=== PATIENT | male | born 1940 | race Caucasian/White ===

== ENCOUNTER 2022-07-05 03:34 | Observation (INO) ==
[2022-07-05 04:49] LABS: Basophils # (auto) 0.08 K/uL (0-0.2); Basophils % (auto) 1.3 %; Eosinophils # (auto) 0.24 K/uL (0-0.50); Eosinophils % (auto) 3.9 %; Hematocrit (blood only) 41.6 % (42.0-52.0); Hemoglobin 14.2 g/dl (14.0-18.0); Immature Granulocytes # (auto) 0.03 K/uL (0.01-0.20); Immature Granulocytes % (auto) 0.5 %; Lymphocytes % (auto) 24.4 %; Mean Corpuscular Hemoglobin 32.6 pg (25.0-34.0); Mean Corpuscular Hgb Conc 34.1 g/dL (32.0-36.0); Mean Corpuscular Volume 95.4 fL (80.0-100.0); Mean Platelet Volume 10.3 fL (9.4-12.4); Monocytes # (auto) 1.05 K/uL (0.11-0.59); Monocytes % (auto) 17.1 %; Neutrophils # (auto) 3.24 K/uL (1.40-6.50); Neutrophils % (auto) 52.8 %; Platelet Count 154 K/uL (130-400); RDW Standard Deviation 45.5 fL (36.4-46.3); Red Blood Count 4.36 M/uL (4.70-6.10); White Blood Count 6.14 K/ul (4.8-10.8)
[2022-07-05 04:53] LABS: Albumin Globulin Ratio 1.6 (0.9-2); Albumin Level 3.8 gm/dl (3.4-5.0); BUN Creatinine Ratio 12.5 (10-20); Bilirubin,Total 0.5 mg/dl (0.2-1.0); Calcium 8.9 mg/dl (8.6-10.3); Creatinine Clr Calc Pharmacy 35.9 ml/min; Est GFR (African American) 38.4 ml/min; Est GFR (Non-African American) 33.2 ml/min; Globulin 2.4 gm/dl (2.5-4.0); Magnesium 2.1 mg/dl (1.7-2.4); Potassium 4.2 mmol/L (3.5-5.1); Total Protein 6.2 gm/dl (6.0-8.3)
[2022-07-05 04:58] LABS: Troponin I High Sensitivity 9.1 pg/ml (0-20)
--- NOTE | 2022-07-05 05:14 | Emergency Department Note ---
Impression & Plan Altered mental status, Fall, Hypotension, Hypoxia ED Provider Note ED Provider Note NAME: ABHAY BROWN AGE:81 SEX: Male : 1940 ARRIVES VIA: EMS INFORMANT: Patient, daughter ED PROVIDER(s): Ani Barrientos DO CHIEF COMPLAINT: Fall HPI: This is an 81-year-old male who presents to the emergency room via EMS after a fall as well as increased agitation and aggressive behavior with his at home following the fall. called 911. According to daughter who is now at bedside patient apparently fell getting out of bed, went downstairs, and then fell again. 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 Patient does have a history of memory problems/dementia. Daughter denies any use of anticoagulation. Daughter has recently assumed care of both of her parents. They do live in a house independently and she lives approximately 15 minutes away. She states she does not know if he lost consciousness in the fall or may have struck his head. Patient denies any current pain. He denies any cough or difficulty breathing. Patient noted to be hypotensive and hypoxic at 87% on I entered the room. He was placed on 2 L via nasal cannula and IV fluids were started. PAST MEDICAL HISTORY:See Below PAST SURGICAL HISTORY:See Below FAMILY HISTORY:See Below SOCIAL HISTORY:See Below HOME MEDICATIONS:See Below ALLERGIES:See Below VITALS:See Below PHYSICAL EXAMINATION: GENERAL: alert, well appearing, well nourished, no distress, non-toxic HEAD: nc/at, small abrasion noted to left methodist, no surrounding ecchymosis, nontender with palpation, no davila signs, no raccoon eyes, no other evidence of facial trauma EYE EXAM: normal conjunctiva, PERRL and EOM's grossly intact OROPHARYNX: no exudate, no erythema, lips, buccal mucosa, and tongue normal and mucous membranes are moist NECK: supple, no nuchal rigidity, no adenopathy, non-tender, FROM LUNGS: Clear to auscultation. Normal chest wall mechanics, no w/r/r HEART: no murmurs, S1 normal and S2 normal CHEST WALL: Nontender with palpation, no crepitus, no step-off ABDOMEN: abdomen soft, non-tender, normo-active bowel sounds, no masses, no rebound or guarding. PELVIS: Stable to compression, nontender with palpation BACK: Back is symmetrical on inspection and there is no deformity, no midline tenderness, no CVA tenderness. SKIN: no rashes, petechiae, orbruising UPPER EXTREMITIES: upper extremities are grossly normal. FROM, nml pulses b/l. No evidence of trauma or deformity. LOWER EXTREMITIES: No pitting edema. FROM, nml pulses b/l. No evidence of trauma or deformity. NEURO EXAM: Normal sensorium, cranial nerves II-XII grossly intact, normal speech, no facial droop,nogross weakness of arms, no gross weakness of legs. Gross sensation intact. No ataxia. Vital Signs: reviewed and remarkable Differential Diagnosis: Syncope, closed head injury, concussion, intracerebral hemorrhage, skull fracture, rib fracture, intra-abdominal hemorrhage, pulmonary contusion, cardiac contusion, musculoskeletal strain/sprain, as well as others were considered MEDICAL DECISION MAKING: This is an 81-year-old male with a history of dementia who presents via EMS following 2 falls this evening at home as well as loose Nations and aggressive behavior with his with whom he lives. Daughter presents to bedside and is able to provide additional history. Labs drawn and sent, IV established, EKG and chest x-ray performed at bedside and interpreted by me, patient placed on telemetry. Patient sent for additional CT imaging due to falls. Patient's imaging reassuring. Patient noted to have elevated creatinine but does have a history of CKD. Due to concern for mildly abnormal chest x-ray and hypoxia, BNP was added and was mildly elevated also. Patient had no obvious respiratory distress here, and hypoxia improved with 2 L via nasal cannula. Patient's blood pressure was low initially and he was started on IV fluids. This improved as well. Family concerned due to increased agitation and aggressive behavior with this morning and did not feel comfortable with him coming home. Given other findings including hypoxia and hypotension, I feel patient should be monitored here. Case discussed with hospitalist for additional evaluation and management. Consultation(s): 2551: Discussed with Dr. Clayton. ER Treatment Provided: See below 0552: Discussed with daughter again at bedside. She states he did just recently see nephrology due to abnormal kidney numbers noted as an outpatient. She does not know what those levels are. She states other than the pacemaker she does not know of any heart history in him, and no prior episodes of congestive heart failure. Diagnostics Interpreted By Me: -ECG: Paced at 80, leftward axis, prolonged intervals consistent with paced rhythm, no acute ST/T wave changes -Cardiac Monitoring: An order was placed for continuous cardiac monitoring. The monitor shows a rate of 82 with paced rhythm. -Laboratory studies: As stated above and show below. -Imaging studies: X-ray: I interpreted the following studies. 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 Vitamin D deficiency Social History Smoking Status: Never smoker Hx Substance Use: No Preferred Language: Ethiopian Communication Ability: Effective Home Management Supervisor Required: No Beliefs That Will Affect Care: None Current Living Situation: Spouse Other Information That Helps Us Care for You: No Feels Safe at Home: Yes Safety Concerns: Feels Safe At This Time Assistive Devices: Glasses, Hearing Aid - Bilateral and Walker Home Meds Home Medications Medication Instructions Recorded Confirmed Multi-Vitamin 1 tab PO DAILY 07/05/22 07/05/22 Prozac 40 mg PO DAILY 07/05/22 07/05/22 Seroquel 100 mg PO HS 07/05/22 07/05/22 acetaminophen 1 tab PO Q12H PRN Pain 07/05/22 07/05/22 cholecalciferol (vitamin D3) 1 tab PO DAILY 07/05/22 07/05/22 gabapentin 100 mg PO HS 07/05/22 07/05/22 metoprolol succinate 25 mg PO DAILY 07/05/22 07/05/22 Results & Data (ED) Vital Signs Vital Signs - 24 hr 07/05/22 07:00 07/05/22 07:30 07/05/22 08:19 Pulse Rate 72 70 74 Pulse Rate from SpO2 Sensor 74 75 Respiratory Rate 19 17 Blood Pressure 121/63 112/72 Blood Pressure Mean 82 85 Pulse Oximetry 97 93 Oxygen Delivery Method Nasal Cannula Room Air Oxygen Flow Rate 2 07/05/22 08:00 07/05/22 08:30 07/05/22 08:31 Pulse Rate 73 73 67 Pulse Rate from SpO2 Sensor 76 77 70 Respiratory Rate 20 18 19 Blood Pressure 113/78 135/72 135/72 Blood Pressure Mean 89 93 93 Pulse Oximetry 93 92 92 Oxygen Delivery Method Nasal Cannula Nasal Cannula Nasal Cannula Oxygen Flow Rate 2 2 2 07/05/22 09:00 07/05/22 09:30 Pulse Rate 72 62 Pulse Rate from SpO2 Sensor 76 61 Respiratory Rate 19 16 Blood Pressure 150/81 H 146/97 H Blood Pressure Mean 104 113 Pulse Oximetry 90 95 Oxygen Delivery Method Nasal Cannula Nasal Cannula Oxygen Flow Rate 2 2 Laboratory Data 07/05/22 03:45 07/05/22 03:45 Lab Results 07/05/22 07/05/22 07/05/22 Range/Units 03:45 03:45 03:45 WBC 6.14 (4.8-10.8) K/ul RBC 4.36 L (4.70-6.10) M/uL Hgb 14.2 (14.0-18.0) g/dl Hct 41.6 L (42.0-52.0) % MCV 95.4 (80.0-100.0) fL MCH 32.6 (25.0-34.0) pg MCHC 34.1 (32.0-36.0) g/dL RDW Std Deviation 45.5 (36.4-46.3) fL RDW Coeff of Evans 13.0 (11.5-14.5) % Plt Count 154 (130-400) K/uL MPV 10.3 (9.4-12.4) fL Immature Gran % (Auto) 0.5 % Neut % (Auto) 52.8 % Lymph % (Auto) 24.4 % [place] % (Auto) 17.1 % Eos % (Auto) 3.9 % Baso % (Auto) 1.3 % Neut # (Auto) 3.24 (1.40-6.50) K/uL Lymph # (Auto) 1.50 (1.2-3.4) K/uL [place] # (Auto) 1.05 H (0.11-0.59) K/uL Eos # (Auto) 0.24 (0-0.50) K/uL Baso # (Auto) 0.08 (0-0.2) K/uL Immature Gran # (Auto) 0.03 (0.01-0.20) K/uL Sodium 142 (136-145) mmol/L Potassium 4.2 (3.5-5.1) mmol/L Chloride 107 (98-107) mmol/L Carbon Dioxide 27 (21-32) mmol/L Anion Gap 8 (3-11) BUN 23 (6-23) mg/dl Creatinine 1.84 H (0.6-1.4) mg/dl Est Cr Clr Drug Dosing 35.9 ml/min Est GFR ( Amer) 38.4 ml/min Est GFR (Non-Af Amer) 33.2 ml/min BUN/Creatinine Ratio 12.5 (10-20) Glucose 110 H (70-99(Fasting)) mg/dl Calcium 8.9 (8.6-10.3) mg/dl Magnesium 2.1 (1.7-2.4) mg/dl Total Bilirubin 0.5 (0.2-1.0) mg/dl AST 23 (13-39) U/L ALT 18 (7-52) U/L Alkaline Phosphatase 97 (34-104) U/L Troponin I High Sens 9.1 (0-20) pg/ml B-Natriuretic Peptide (0-100) pg/ml Total Protein 6.2 (6.0-8.3) gm/dl Albumin 3.8 (3.4-5.0) gm/dl Globulin 2.4 L (2.5-4.0) gm/dl Albumin/Globulin Ratio 1.6 (0.9-2) Lipase 20 (11-82) U/L TSH 14.688 H (0.300-4.500) uIu/ml Free T4 0.75 (0.61-1.60) ng/dl SARS-CoV-2 (PCR) (Negative) Influenza Type A (PCR) (Neg) Influenza Type B (PCR) (Neg) RSV (RT-PCR) (Neg) 07/05/22 07/05/22 Range/Units 05:46 06:40 WBC (4.8-10.8) K/ul RBC (4.70-6.10) M/uL Hgb (14.0-18.0) g/dl Hct (42.0-52.0) % MCV (80.0-100.0) fL MCH (25.0-34.0) pg MCHC (32.0-36.0) g/dL RDW Std Deviation (36.4-46.3) fL RDW Coeff of Evans (11.5-14.5) % Plt Count (130-400) K/uL MPV (9.4-12.4) fL Immature Gran % (Auto) % Neut % (Auto) % Lymph % (Auto) % [place] % (Auto) % Eos % (Auto) % Baso % (Auto) % Neut # (Auto) (1.40-6.50) K/uL Lymph # (Auto) (1.2-3.4) K/uL [place] # (Auto) (0.11-0.59) K/uL Eos # (Auto) (0-0.50) K/uL Baso # (Auto) (0-0.2) K/uL Immature Gran # (Auto) (0.01-0.20) K/uL Sodium (136-145) mmol/L Potassium (3.5-5.1) mmol/L Chloride (98-107) mmol/L Carbon Dioxide (21-32) mmol/L Anion Gap (3-11) BUN (6-23) mg/dl Creatinine (0.6-1.4) mg/dl Est Cr Clr Drug Dosing ml/min Est GFR ( Amer) ml/min Est GFR (Non-Af Amer) ml/min BUN/Creatinine Ratio (10-20) Glucose (70-99(Fasting)) mg/dl Calcium (8.6-10.3) mg/dl Magnesium (1.7-2.4) mg/dl Total Bilirubin (0.2-1.0) mg/dl AST (13-39) U/L ALT (7-52) U/L Alkaline Phosphatase (34-104) U/L Troponin I High Sens (0-20) pg/ml B-Natriuretic Peptide 123 H (0-100) pg/ml Total Protein (6.0-8.3) gm/dl Albumin (3.4-5.0) gm/dl Globulin (2.5-4.0) gm/dl Albumin/Globulin Ratio (0.9-2) Lipase (11-82) U/L TSH (0.300-4.500) uIu/ml Free T4 (0.61-1.60) ng/dl SARS-CoV-2 (PCR) NEGATIVE (Negative) Influenza Type A (PCR) Negative (Neg) Influenza Type B (PCR) Negative (Neg) RSV (RT-PCR) Negative (Neg) Administered Medications Fluoxetine HCl (Fluoxetine Hcl 20 Mg Cap) 40 mg PO DAILY ROBIN Stop: 08/04/22 12:51 Last Admin: 07/05/22 13:17 Dose: 40 mg Documented By: DIMITRI Gabapentin (Gabapentin 100 Mg Cap) 100 mg PO HS ROBIN Stop: 08/04/22 20:59 Last Admin: 07/05/22 20:07 Dose: 100 mg Documented By: ZURI Heparin Sodium (Porcine) (Heparin Sod 5,000 Unit/0.5 Ml Vial) 5,000 units SQ Q12 ROBIN Stop: 08/04/22 20:59 Last Admin: 07/05/22 20:07 Dose: 5,000 units Documented By: ZURI Metoprolol Succinate (Metoprolol Succ 25mg Ext Rel Tab) 25 mg PO DAILY ROBIN Stop: 08/04/22 12:51 Last Admin: 07/05/22 13:17 Dose: 25 mg Documented By: OL Quetiapine Fumarate (Quetiapine Fumarate 100 Mg Tablet) 100 mg PO HS ROBIN Stop: 08/04/22 20:59 Last Admin: 07/05/22 20:07 Dose: 100 mg Documented By: ZURI Discontinued Medications Sodium Chloride (Nss 1000ml) 1,000 mls @ 125 mls/hr IV .Q8H ROBIN Stop: 08/04/22 04:44 Last Infusion: 07/05/22 20:36 Dose: 0 mls/hr Documented By: Admin: 07/05/22 16:35 Dose: 125 mls/hr Documented By: Infusion: 07/05/22 14:29 Dose: 0 mls/hr Documented By: Admin: 07/05/22 06:11 Dose: 125 mls/hr Documented By: CASANDRA Discharge Plan Visit Data Chief Complaint: Altered Mental Status ED Provider: Ani Barrientos Discharge Problem: Altered mental status, Fall, Hypotension, Hypoxia Patient Disposition: Admitted As Inpatient Discharge Instructions Interventions: ED Discharge Assessment Last Done: 07/05/22 12:51
[2022-07-05 05:18] LABS: Thyroid Stimulating Hormone 14.688 uIu/ml (0.300-4.500)
[2022-07-05 06:06] LABS: T4 Free Thyroxine 0.75 ng/dl (0.61-1.60)
[2022-07-05] MEDS: SODIUM CHLORIDE 0.9% 1000ML 1,000 ML IV SCH ×3 (06:11→16:35)
--- NOTE | 2022-07-05 06:39 | CT Scan Report ---
Exam(s): CT HEAD Without Contrast EXAM: CT Head Without Intravenous Contrast CLINICAL HISTORY: Reason for exam: fall. TECHNIQUE: Axial 5 mm computed tomography images of the head/brain without intravenous contrast. No coronal or sagittal reformatted images. Automated exposure control was utilized for the study. A dose lowering technique was utilized adhering to the principles of ALARA. COMPARISON: No relevant prior studies available. FINDINGS: Exam mildly limited due to lack of coronal and sagittal reformatted images. Within this constraint: There is no acute intracranial hemorrhage or major vascular territory infarct. No mass effect or midline shift seen. There is prominence of the ventricles and sulci consistent with generalized parenchymal volume loss. Scattered hypodensities throughout the periventricular and subcortical white matter are noted, likely sequela of chronic microvascular changes. The calvarium is intact. Bilateral lens replacements noted. The visualized paranasal sinuses and mastoid air cells are clear. IMPRESSION: No acute intracranial pathology. Generalized parenchymal volume loss and sequela of chronic microvascular ischemic angiopathy. Electronically signed by: Casey De Los Santos M.D. 07/05/22 06:38 AM
--- NOTE | 2022-07-05 06:41 | CT Scan Report ---
Exam(s): CT C SPINE EXAM: CT Cervical Spine Without Intravenous Contrast CLINICAL HISTORY: Reason for exam: fall. TECHNIQUE: Axial computed tomography images of the cervical spine without intravenous contrast. Automated exposure control was utilized for the study. A dose lowering technique was utilized adhering to the principles of ALARA. COMPARISON: No relevant prior studies available. FINDINGS: No acute fracture or traumatic subluxation. Prominent multilevel cervical spondylosis with loss of intervertebral disc height, degenerative endplate changes and multilevel neuroforaminal stenoses. Spinal canal is patent. The prevertebral and paraspinal soft tissues are grossly unremarkable. Mild interlobular septal thickening at the lung apices. IMPRESSION: No acute fracture or traumatic subluxation. Multilevel cervical spondylosis. Electronically signed by: Casey De Los Santos M.D. 07/05/22 06:40 AM
--- NOTE | 2022-07-05 07:29 | XRay Report ---
XR chest 1V portable CLINICAL HISTORY: trauma COMPARISON STUDY: No previous studies for comparison. FINDINGS: Low lung volumes are noted. There is no pneumothorax. There is a possible left pleural effu rebekah. Cardiomegaly is noted. Left subclavian pacer is in place. There is mild interstitial thickening . Apparent hazy left lower lung opacities may be artifactual. IMPRESSION: 1. Low lung volumes. Technically difficult study to interpret. 2. Cardiomegaly. Interstitial thickening which favors mild pulmonary edema. 3. Possible left pleural effusion. No pneumothorax. ACT 112: Negative or not required by law. Electronically signed by: Jim Glez M.D. 07/05/2022 7:28 AM
--- NOTE | 2022-07-05 07:30 | XRay Report ---
XR pelvis 1-2V routine CLINICAL HISTORY: trauma COMPARISON: None FINDINGS: Sacroiliac joints and symphysis pubis are intact. No acute fracture is identified within t he pelvis or hips. Pelvic calcifications favor phleboliths. IMPRESSION: No acute fracture within the pelvis or hips. ACT 112: Negative or not required by law. Electronically signed by: Jim Glez M.D. 07/05/2022 7:29 AM
[2022-07-05 07:35] LABS: Influenza A virus by PCR Negative (Neg); Influenza B virus by PCR Negative (Neg); RSV by PCR Negative (Neg); SARS CoV2 RNA(COVID-19) Ceph NEGATIVE (Negative)
--- NOTE | 2022-07-05 10:24 | History & Physical Report ---
Date of Service July 05, 2022 Assessment & Plan (1) Altered mental status: (2) Fall: (3) Hypotension: Plan: 79 years old male with past medical history of hypertension, CAD, vitamin D deficiency, CKD stage III, vascular dementia with behavioral disturbance, ambu latory dysfunction, depression, history of malignant melanoma, history of lymphoma was brought to the ER for altered mental status. Confusion Possible related to delirium, but need to r/o infectious etiology CT head showed no acute intracranial finding No focal neuro deficit on exam UA pending will continue monitor S/P Fall Ambulatory dysfunction Imaging showed no evidence of fracture PT/OT eval Fall precaution CKD stage 3 Creatinine at baseline ( creatinine btw 1.5 to 1.8 baseline) last creatinine level 2 weeks ago was 2 Continue avoid nephrotoxic agents Continue monitor Depression Continue Prozac Dementia with behavioral disturbance Continue Seroquel HTN Hx Pacemaker Continue metoprolol succinate Continue monitor BP Vitamin D deficiency Continue vitamin d supplement Hypoxia CXR showed cardiomegaly. Interstitial thickening which favors mild pulmonary edema. Possible left pleural effusion. No pneumothorax. Received IVF in the ER Will d/c IVF Continue monitor closely DVT px on heparin subq Code status Full code History of Present Illness Chief Complaint: Confusion/fall Primary Care Provider: Melissa Bean MD 79 years old male with past medical history of hypertension, CAD, vitamin D deficiency, CKD stage III, vascular dementia with behavioral disturbance, ambulatory dysfunction, depression, history of malignant melanoma, history of lymphoma was brought to the ER for altered mental status. History obtained from patient, over the phone and ER provider. Patient recently moved from [facility] to [place] about 6 months ago. Last night patient wo ke up in the middle of the night confused. When he was trying to get out of the bed he fell. said patient thought he heard the fire truck outside so he was trying to get out of the house. 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 When tried to stop him from getting out of the house, he became very agitated and aggressive throughout . said he fell 3 times last night, one time when he go out of bed and twice downstairs while trying to leave the house. said he hit his head during the fall. called 911 and he was brought to the ER. Patient said last night he did not know what was going on. he said that he was confused. He said there was EMS staff at his house but they took him to the hospital because he was down on the floor. Currently he said he feels fine but tired. He said that he does not feel that he needs to be in the hospital because he is fine now and the test and exam so far are negative. In the ER he was found to be hypotensive. CT head was unremarkable. Denies any pain, palpitation, dizziness and SOB. Home Medications Medication Instructions Recorded Confirmed Type Multi-Vitamin 1 tab PO DAILY 07/05/22 07/05/22 History Prozac 40 mg PO DAILY 07/05/22 07/05/22 History Seroquel 100 mg PO HS 07/05/22 07/05/22 History acetaminophen 1 tab PO Q12H PRN Pain 07/05/22 07/05/22 History cholecalciferol (vitamin D3) 1 tab PO DAILY 07/05/22 07/05/22 History gabapentin 100 mg PO HS 07/05/22 07/05/22 History metoprolol succinate 25 mg PO DAILY 07/05/22 07/05/22 History Past Med/Surg History Social History Smoking Status: Never smoker Feels Safe at Home: Yes Review of Systems Review of Systems: All systems reviewed & are unremarkable except as noted in HPI & below Physical Exam Physical Exam: General- No acute distress Head- +small abrasion noted to left baptist Eyes- PERRL, EOMI, ENT- oropharynx clear Neck- supple, no JVD Lungs- clear to auscultation Heart- regular rhythm; no murmur Abdomen- normal bowel sounds, soft, nontender Extremities- no calf tenderness Neuro- alert, oriented x 3; PERRL, EOMI; no facial palsy; no dysarthria, no focal neuro deficit Skin- warm & dry Results & Data Results & Data Vital Signs (Past 12 Hours) Vital Signs Temp Pulse Resp BP Pulse Ox O2 Del Method O2 Flow Rate 07/05/22 09:30 62 16 146/97 H 95 Nasal Cannula 2 07/05/22 09:00 72 19 150/81 H 90 Nasal Cannula 2 07/05/22 08:31 67 19 135/72 92 Nasal Cannula 2 07/05/22 08:30 73 18 135/72 92 Nasal Cannula 2 07/05/22 08:00 73 20 113/78 93 Nasal Cannula 2 07/05/22 08:19 74 07/05/22 07:30 70 17 112/72 93 Room Air 07/05/22 07:00 72 19 121/63 97 Nasal Cannula 2 07/05/22 06:00 75 18 130/68 96 07/05/22 05:30 76 18 98/75 L 95 07/05/22 05:00 76 20 119/64 97 07/05/22 04:30 79 20 103/72 95 2 07/05/22 04:00 77 22 90/58 L 90 07/05/22 03:40 79 20 129/80 94 07/05/22 04:26 89 L Room Air 07/05/22 03:54 79 07/05/22 03:37 37 C 80 14 129/80 90 Room Air Diagnostic Findings Laboratory Results WBC 6.14 K/ul (4.8-10.8) 07/05/22 03:45 RBC 4.36 M/uL (4.70-6.10) L 07/05/22 03:45 Hgb 14.2 g/dl (14.0-18.0) 07/05/22 03:45 Hct 41.6 % (42.0-52.0) L 07/05/22 03:45 MCV 95.4 fL (80.0-100.0) 07/05/22 03:45 MCH 32.6 pg (25.0-34.0) 07/05/22 03:45 MCHC 34.1 g/dL (32.0-36.0) 07/05/22 03:45 RDW Std Deviation 45.5 fL (36.4-46.3) 07/05/22 03:45 RDW Coeff of [place] 13.0 % (11.5-14.5) 07/05/22 03:45 Plt Count 154 K/uL (130-400) 07/05/22 03:45 MPV 10.3 fL (9.4-12.4) 07/05/22 03:45 Immature Gran % (Auto) 0.5 % 07/05/22 03:45 Neut % (Auto) 52.8 % 07/05/22 03:45 Lymph % (Auto) 24.4 % 07/05/22 03:45 [place] % (Auto) 17.1 % 07/05/22 03:45 Eos % (Auto) 3.9 % 07/05/22 03:45 Baso % (Auto) 1.3 % 07/05/22 03:45 Neut # (Auto) 3.24 K/uL (1.40-6.50) 07/05/22 03:45 Lymph # (Auto) 1.50 K/uL (1.2-3.4) 07/05/22 03:45 [place] # (Auto) 1.05 K/uL (0.11-0.59) H 07/05/22 03:45 Eos # (Auto) 0.24 K/uL (0-0.50) 07/05/22 03:45 Baso # (Auto) 0.08 K/uL (0-0.2) 07/05/22 03:45 Immature Gran # (Auto) 0.03 K/uL (0.01-0.20) 07/05/22 03:45 Sodium 142 mmol/L (136-145) 07/05/22 03:45 Potassium 4.2 mmol/L (3.5-5.1) 07/05/22 03:45 Chloride 107 mmol/L (98-107) 07/05/22 03:45 Carbon Dioxide 27 mmol/L (21-32) 07/05/22 03:45 Anion Gap 8 (3-11) 07/05/22 03:45 BUN 23 mg/dl (6-23) 07/05/22 03:45 Creatinine 1.84 mg/dl (0.6-1.4) H 07/05/22 03:45 Est Cr Clr Drug Dosing 35.9 ml/min 07/05/22 03:45 Est GFR ( Amer) 38.4 ml/min 07/05/22 03:45 Est GFR (Non-Af Amer) 33.2 ml/min 07/05/22 03:45 BUN/Creatinine Ratio 12.5 (10-20) 07/05/22 03:45 Glucose 110 mg/dl (70-99(Fasting)) H 07/05/22 03:45 Calcium 8.9 mg/dl (8.6-10.3) 07/05/22 03:45 Magnesium 2.1 mg/dl (1.7-2.4) 07/05/22 03:45 Total Bilirubin 0.5 mg/dl (0.2-1.0) 07/05/22 03:45 AST 23 U/L (13-39) 07/05/22 03:45 ALT 18 U/L (7-52) 07/05/22 03:45 Alkaline Phosphatase 97 U/L (34-104) 07/05/22 03:45 Troponin I High Sens 9.1 pg/ml (0-20) 07/05/22 03:45 B-Natriuretic Peptide 123 pg/ml (0-100) H 07/05/22 05:46 Total Protein 6.2 gm/dl (6.0-8.3) 07/05/22 03:45 Albumin 3.8 gm/dl (3.4-5.0) 07/05/22 03:45 Globulin 2.4 gm/dl (2.5-4.0) L 07/05/22 03:45 Albumin/Globulin Ratio 1.6 (0.9-2) 07/05/22 03:45 Lipase 20 U/L (11-82) 07/05/22 03:45 TSH 14.688 uIu/ml (0.300-4.500) H 07/05/22 03:45 Free T4 0.75 ng/dl (0.61-1.60) 07/05/22 03:45 SARS-CoV-2 (PCR) NEGATIVE (Negative) 07/05/22 06:40 Influenza Type A (PCR) Negative (Neg) 07/05/22 06:40 Influenza Type B (PCR) Negative (Neg) 07/05/22 06:40 RSV (RT-PCR) Negative (Neg) 07/05/22 06:[address] 07/05/22 04:33 Exam(s): CT C SPINE EXAM: CT Cervical Spine Without Intravenous Contrast CLINICAL HISTORY: Reason for exam: fall. TECHNIQUE: Axial computed tomography images of the cervical spine without intravenous contrast. Automated exposure control was utilized for the study. A dose lowering technique was utilized adhering to the principles of ALARA. COMPARISON: No relevant prior studies available. FINDINGS: No acute fracture or traumatic subluxation. Prominent multilevel cervical spondylosis with loss of intervertebral disc height, degenerative endplate changes and multilevel neuroforaminal stenoses. Spinal canal is patent. The prevertebral and paraspinal soft tissues are grossly unremarkable. Mild interlobular septal thickening at the lung apices. IMPRESSION: No acute fracture or traumatic subluxation. Multilevel cervical spondylosis. Electronically signed by: Casey De Los Santos M.D. 07/05/22 06:40 AM Chest X-Ray 07/05/22 04:33 XR chest 1V portable CLINICAL HISTORY: trauma COMPARISON STUDY: No previous studies for comparison. FINDINGS: Low lung volumes are noted. There is no pneumothorax. There is a possible left pleural effusion. Cardiomegaly is noted. Left subclavian pacer is in place. There is mild interstitial thickening. Apparent hazy left lower lung opacities may be artifactual. IMPRESSION: 1. Low lung volumes. Technically difficult study to interpret. 2. Cardiomegaly. Interstitial thickening which favors mild pulmonary edema. 3. Possible left pleural effusion. No pneumothorax. ACT 112: Negative or not required by law. Electronically signed by: Jim Glez M.D. 07/05/2022 7:[address] 07/05/22 04:33 Exam(s): CT HEAD Without Contrast EXAM: CT Head Without Intravenous Contrast CLINICAL HISTORY: Reason for exam: fall. TECHNIQUE: Axial 5 mm computed tomography images of the head/brain without intravenous contrast. No coronal or sagittal reformatted images. Automated exposure control was utilized for the study. A dose lowering technique was utilized adhering to the principles of ALARA. COMPARISON: No relevant prior studies available. FINDINGS: Exam mildly limited due to lack of coronal and sagittal reformatted images. Within this constraint: There is no acute intracranial hemorrhage or major vascular territory infarct. No mass effect or midline shift seen. There is prominence of the ventricles and sulci consistent with generalized parenchymal volume loss. Scattered hypodensities throughout the periventricular and subcortical white matter are noted, likely sequela of chronic microvascular changes. The calvarium is intact. Bilateral lens replacements noted. The visualized paranasal sinuses and mastoid air cells are clear. IMPRESSION: No acute intracranial pathology. Generalized parenchymal volume loss and sequela of chronic microvascular ischemic angiopathy. Electronically signed by: Casey De Los Santos M.D. 07/05/22 06:38 AM Pelvis X-Ray 07/05/22 04:34 XR pelvis 1-2V routine CLINICAL HISTORY: trauma COMPARISON: None FINDINGS: Sacroiliac joints and symphysis pubis are intact. No acute fracture is identified within the pelvis or hips. Pelvic calcifications favor phleboliths. IMPRESSION: No acute fracture within the pelvis or hips. ACT 112: Negative or not required by law. Electronically signed by: Jim Glez M.D. 07/05/2022 7:29 AM Code Status & VTE Plan VTE Prophylaxis Plan VTE Prophylaxis will be ordered: Yes
[2022-07-05 12:14] LABS: Appearance Urine Clear (Clear); Bilirubin Urine Negative (Negative); Blood Urine Negative (Negative); Color Urine Dark Yellow; Glucose Urine UA Negative (Negative); Ketones Urine Negative (Negative); Leukocyte Esterase Urine Negative (Negative); Nitrite Urine Negative (Negative); Protein Urine Negative (Negative); Specific Gravity Urine 1.018 (1.000-1.030); Urobilinogen Urine Negative (Negative); pH Urine 5.5 (4.5-7.5)
--- NOTE | 2022-07-05 12:59 | Electrocardiogram Report ---
Test Reason : Blood Pressure : / mmHG Vent. Rate : 080 BPM Atrial Rate : 080 BPM P-R Int : 384 ms QRS Dur : 174 ms QT Int : 466 ms P-R-T Axes : 000 -70 091 degrees QTc Int : 537 ms Poor data quality, interpretation may be adversely affected Atrial-sensed ventricular-paced rhythm with prolonged AV conduction Abnormal ECG No previous ECGs available Confirmed by Karl Watkins ([id number]) on 07/05/2022 12:58:51 PM Referred By: REFERRED SELF Confirmed By:Karl Watkins
[2022-07-05] MEDS: METOPROLOL SUCC 25MG EXT REL TAB PO SCH (13:17)
[2022-07-05] MEDS: FLUoxetine HCL 20 MG CAP PO SCH (13:17)
[2022-07-05] MEDS ORDERED: Nursing to Pharmacy Communication SCH (20:00)
[2022-07-05] MEDS: HEPARIN SOD 5,000 UNIT/0.5 ML VIAL SQ SCH (20:07)
[2022-07-05] MEDS ORDERED: GABAPENTIN 100 MG CAP PO SCH (21:00)
[2022-07-05] MEDS ORDERED: QUEtiapine FUMARATE 100 MG TABLET PO SCH (21:00)
[2022-07-06 07:08] LABS: BUN Creatinine Ratio 14.4 (10-20); Calcium 8.8 mg/dl (8.6-10.3); Creatinine Clr Calc Pharmacy 38.5 ml/min; Est GFR (African American) 43.2 ml/min; Est GFR (Non-African American) 37.3 ml/min; Potassium 4.4 mmol/L (3.5-5.1)
[2022-07-06] MEDS: METOPROLOL SUCC 25MG EXT REL TAB PO SCH (08:11)
[2022-07-06] MEDS: FLUoxetine HCL 20 MG CAP PO SCH (08:11)
[2022-07-06] MEDS: HEPARIN SOD 5,000 UNIT/0.5 ML VIAL SQ SCH (08:12)
[2022-07-06] MEDS ORDERED: CHOLECALCIFEROL 1,000 UNITS 25 MCG TAB PO SCH (09:00)
[2022-07-06] MEDS ORDERED: MULTIVITAMIN TAB PO SCH (09:00)
--- NOTE | 2022-07-06 09:55 | Hospitalist Progress Note ---
Date of Service July 06, 2022 Assessment & Plan (1) Altered mental status: (2) Fall: (3) Hypotension: Plan: 79 years old male with past medical history of hypertension, CAD, vitamin D deficiency, CKD stage III, vascular dementia with behavioral disturbance, ambu latory dysfunction, depression, history of malignant melanoma, history of lymphoma was brought to the ER for altered mental status. Confusion Possible related to delirium, but need to r/o infectious etiology CT head showed no acute intracranial finding No focal neuro deficit on exam UA pending will continue monitor S/P Fall Ambulatory dysfunction Imaging showed no evidence of fracture PT/OT eval Fall precaution CKD stage 3 Creatinine at baseline ( creatinine btw 1.5 to 1.8 baseline) last creatinine level 2 weeks ago was 2 Continue avoid nephrotoxic agents Continue monitor Depression Continue Prozac Dementia with behavioral disturbance Continue Seroquel HTN Hx Pacemaker Continue metoprolol succinate Continue monitor BP Vitamin D deficiency Continue vitamin d supplement Hypoxia CXR showed cardiomegaly. Interstitial thickening which favors mild pulmonary edema. Possible left pleural effusion. No pneumothorax. Received IVF in the ER Will d/c IVF Continue monitor closely DVT px on heparin subq Code status Full code Admission and Anticipated Discharge Date Admission Date: July 05, 2022 Results & Data Results & Data Vital Signs (Past 12 Hours) Vital Signs Temp Pulse Resp BP Pulse Ox O2 Del Method 07/06/22 07:44 36.5 C 65 20 150/87 H 94 Room Air Laboratory Results [facility] 07/06/22 06:02 Sodium 140 Potassium 4.4 Chloride 107 Carbon Dioxide 26 BUN 24 H Creatinine 1.67 H Glucose 90 Calcium 8.8 Urine 07/05/22 Range/Units 12:00 Urine Color Dark Yellow Urine Appearance Clear (Clear) Urine pH 5.5 (4.5-7.5) Ur Specific [place] 1.018 (1.000-1.030) Urine Protein Negative (Negative) Urine Glucose (UA) Negative (Negative) Medications Administered Current Inpatient Medications Fluoxetine HCl (Fluoxetine Hcl 20 Mg Cap) 40 mg PO DAILY ROBIN Stop: 08/04/22 12:51 Last Admin: 07/06/22 08:11 Dose: 40 mg Gabapentin (Gabapentin 100 Mg Cap) 100 mg PO HS ROBIN Stop: 08/04/22 20:59 Last Admin: 07/05/22 20:07 Dose: 100 mg Heparin Sodium (Porcine) (Heparin Sod 5,000 Unit/0.5 Ml Vial) 5,000 units SQ Q12 ROBIN Stop: 08/04/22 20:59 Last Admin: 07/06/22 08:12 Dose: 5,000 units Metoprolol Succinate (Metoprolol Succ 25mg Ext Rel Tab) 25 mg PO DAILY ROBIN Stop: 08/04/22 12:51 Last Admin: 07/06/22 08:11 Dose: 25 mg Multivitamins (Multivitamin Tab) 1 tab PO DAILY ROBIN Stop: 08/05/22 08:59 Last Admin: 07/06/22 08:11 Dose: 1 tab Quetiapine Fumarate (Quetiapine Fumarate 100 Mg Tablet) 100 mg PO HS ROBIN Stop: 08/04/22 20:59 Last Admin: 07/05/22 20:07 Dose: 100 mg Vitamin D (Cholecalciferol 1,000 Units 25 Mcg Tab) 1,000 units PO DAILY ROBNI Stop: 08/05/22 08:59 Last Admin: 07/06/22 08:11 Dose: 1,000 units
[2022-07-06 14:07] LABS: Hematocrit (blood only) 38.9 % (42.0-52.0); Hemoglobin 13.3 g/dl (14.0-18.0); Mean Corpuscular Hemoglobin 32.2 pg (25.0-34.0); Mean Corpuscular Hgb Conc 34.2 g/dL (32.0-36.0); Mean Corpuscular Volume 94.2 fL (80.0-100.0); Mean Platelet Volume 10.5 fL (9.4-12.4); Platelet Count 154 K/uL (130-400); RDW Coefficient of Variation 13.1 % (11.5-14.5); RDW Standard Deviation 44.9 fL (36.4-46.3); Red Blood Count 4.13 M/uL (4.70-6.10); White Blood Count 7.05 K/ul (4.8-10.8)
--- NOTE | 2022-07-06 14:50 | Discharge Summary ---
Discharge Summary Date of Service July 06, 2022 Notes For Next Care Provider Consider repeating thyroid function tests, slightly hypothyroid levels here Monitor medication adjustment Work to helping family with possible diagnosis of dementia Consider PA/Lat view CXR to reassess, film here in the hospital was difficult to interpret Medication Changes From Visit Decrease seroquel from 100 mg qHS to 50mg qHS Admission HPI Per Admitting Provider 79 years old male with past medical history of hypertension, CAD, vitamin D deficiency, CKD stage III, vascular dementia with behavioral disturbance, ambulatory dysfunction, depression, history of malignant melanoma, history of lymphoma was brought to the ER for altered mental status. History obtained from patient, over the phone and ER provider. Patient recently moved from [facility] to [place] about 6 months ago. Last night patient woke up in the middle of the night confused. When he was trying to get out of the bed he fell. said patient thought he heard the fire truck outside so he was trying to get out of the house. 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 When tried to stop him from getting out of the house, he became very agitated and aggressive throughout . said he fell 3 times last night, one time when he go out of bed and twice downstairs while trying to leave the house. said he hit his head during the fall. called 911 and he was brought to the ER. Patient said last night he did not know what was going on. he said that he was confused. He said there was EMS staff at his house but they took him to the hospital because he was down on the floor. Currently he said he feels fine but tired. He said that he does not feel that he needs to be in the hospital because he is fine now and the test and exam so far are negative. In the ER he was found to be hypotensive. CT head was unremarkable. Denies any pain, palpitation, dizziness and SOB. Principal Dx & Hospital Course #1 = Principal Diagnosis (1) Altered mental status: (2) Fall: (3) Hypotension: (4) Dementia: Plan By CMS guidelines, a determination that the admission or continued stay is not medically necessary has been made by a member of the Utilization Review committee and a physician for this hospital stay. Therefore, a Code 44 will be completed and the inpatient admission will be changed to outpatient. 79 yo M with history of undiagnosed dementia symptoms including ongoing sundowning at home each night, admitted to medicine with altered mentation. Workup included CT head with no acute intracranial abnormalities. UA was clear of infection, CXR was clear of infection and no other over lab abnormalities seen on CBC or chemistry panel that would contribute to underlying behavior and mentation change. He is notably on antidepressant therapy and Seroquel, and having recently moved to the area, full records on the history of this medication adjustment is not available. However, it is possible that the Seroquel 100mg may be contributing to a pharmacologic side effect contributing to the noted behavior. It is also very possible that this is undiagnosed dementia with sundowning/intermittent delirium. Per his daughter, who is at bedside, they are investigating this with neuropsychological testing as soon as possible. 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 At time of discharge the patient is mentating at baseline, answering questions correctly and is reporting feeling well. PT and OT saw him and felt he was safe to return home from their standpoint. Repeat TSH should be considered in a few weeks (was 14.7 in the hospital without hypothyroid symptoms reported). Also consider CXR with PA and lateral views as CXR in the hospital was difficult to interpret. He was discharged to home in stable condition with close primary care follow-up recommended. He will continue with his outpatient physical therapy services already in place. Discharge Exam mentating at baseline ambulating independently no gross neurologic deficits. Updated Medication List Medication Instructions Recorded Confirmed Type Multi-Vitamin 1 tab PO DAILY 07/05/22 07/05/22 History Prozac 40 mg PO DAILY 07/05/22 07/05/22 History acetaminophen 1 tab PO Q12H PRN Pain 07/05/22 07/05/22 History cholecalciferol (vitamin D3) 1 tab PO DAILY 07/05/22 07/05/22 History gabapentin 100 mg PO HS 07/05/22 07/05/22 History metoprolol succinate 25 mg PO DAILY 07/05/22 07/05/22 History quetiapine 50 mg tablet (Seroquel) 50 mg PO HS #30 tabs 07/06/22 Rx Hospital Stay Data Consultations 07/05/22 08:51 ED Decision to Admit Stat Diagnostic Imagining Performed 07/05/22 04:33 CT cervical spine wo con Stat CT head/brain wo con Stat Pending Results Patient Have Any Pending Studies at Discharge: No Discharge Instructions Given to Patient (Per Discharging Provider) Please take all medications as instructed on discharge list below. Please de-escalate seroquel from 100mg every night to 50mg at night. Please followup with your primary care provider in one week to review how the medication change is working for you. It was a pleasure taking care of you! Please call if you have any questions or problems. You can reach a [facility] hospitalist on duty at [facility] 24 hours a day by calling [phone]. Take care of yourself. Nati Art, [facility]ist Total Time Total Time Spent Total Time Spent (In Minutes): 60
--- NOTE | 2022-07-06 15:33 | Communication Note ---
Date of Service: July 06, 2022 Code 44 attestation: 81-year-old male significant past medical history as mentioned in H&P was admitted with altered mental status. No significant cause was found, he was appropriately managed by the attending physician and his Seroquel was decreased to half the dose. By CMS guidelines, a determination that the admission or continued stay is not medically necessary has been made by a member of the UR committee and a physician for this hospital stay, therefore a Code 44 will be completed and the Inpatient admission will be changed to outpatient. Dr Pilar France Member UR Committee
== END 2022-07-06 15:44 | disposition home or self-care (01) | DRG 948 ==
LOC: ED 03:34 → INTOOBSV 09:33 → EDINP 09:33 → SUATTDRO 09:33 → 3N 12:51

== ENCOUNTER 2024-07-26 17:02 | Observation (INO) ==
[2024-07-26 17:58] LABS: Basophils % (auto) 0.8 %; Eosinophils % (auto) 3.2 %; Hemoglobin 13.9 g/dl (14.0-18.0); Immature Granulocytes # (auto) 0.07 K/uL (0.01-0.20); Immature Granulocytes % (auto) 0.6 %; Lymphocytes # (auto) 1.35 K/uL (1.20-3.40); Lymphocytes % (auto) 10.7 %; Mean Corpuscular Hemoglobin 32.8 pg (25.0-34.0); Mean Corpuscular Hgb Conc 34.8 g/dL (32.0-36.0); Mean Corpuscular Volume 94.3 fL (80.0-100.0); Mean Platelet Volume 10.5 fL (9.4-12.4); Monocytes # (auto) 2.04 K/uL (0.11-0.59); Monocytes % (auto) 16.2 %; Neutrophils # (auto) 8.64 K/uL (1.40-6.50); Neutrophils % (auto) 68.5 %; Platelet Count 152 K/uL (130-400); RDW Standard Deviation 44.9 fL (36.4-46.3); Red Blood Count 4.24 M/uL (4.70-6.10)
[2024-07-26] MEDS: ALBUT/IPRATROP 3MG/0.5MG NEB 3 ML VIAL NEB STA ×2 (18:05→20:57)
[2024-07-26] MEDS: COUGH DROP (SUGAR FREE) LOZ 24 LOZ/1 BOX BUCCAL STA (18:05)
--- NOTE | 2024-07-26 18:19 | Emergency Department Note ---
Impression & Plan URI (upper respiratory infection), Breathlessness, Dementia ED Provider Note Provider: Herson Kolb MD CHIEF COMPLAINT: Cough, shortness of breath HISTORY OF PRESENT ILLNESS: Patient is a 83-year-old gentleman history of dementia presenting here with today with reports of breathing issues developing over the last 2 days. Patient is not normally super ambulatory and unfortunately suffers from dementia. Has not been eating as well but they have noted increased productive cough particular yesterday with sputum. No bloody sputum. No significant leg swelling or falls reported. Was having worsening episodes of breathing earlier this afternoon and had a little bit of confusion last night and this afternoon as well. They were concerned he could be developing possibly pneumonia. Patient denies any history of smoking. Denies chest pain. Some sinus congestion is reported. Mucinex did help the productive cough some. Evidently had a low oxygen level of 85 at home while coughing. PAST MEDICAL HISTORY: As noted above MEDICATIONS: Reviewed home medications SOCIAL HISTORY: , non-smoker PHYSICAL EXAM: GENERAL: alert and oriented in no acute distress on stretcher, somewhat hard of hearing Head: normocephalic and atraumatic EYES: No injection, discharge or icterus. PERRL, EOMI. NECK: Trachea midline. Supple. ENT: Mucous membranes pink and moist. LUNGS: Airway patent. No retractions. Breath sounds diffusely wheezing HEART: Regular rate and rhythm. No chest wall tenderness ABDOMEN: Soft and non-tender, without guarding or rebound. SKIN: Acyanotic, warm, dry, without rashes EXTREMITIES: Without swelling, tenderness or deformity NEUROLOGICAL: No focal deficits. No aphasia. No facial droop or slurred speech. EK bpm sensed but ventricular paced rhythm. No PVC. No acute ST segment elevation with interventricular conduction delay consistent with pacing with a QTc of 485. Similar to previous from July 05, 2022. CONTINUOUS CARDIAC MONITORING: was ordered and showed a heart rate of 60s to 70s bpm in ventricularly paced rhythm Patient's laboratory studies and imaging reviewed. Differential includes Reactive airway disease, pneumonia, pneumothorax, COPD, CHF, infections, cardiac ischemia, pulmonary embolism, musculoskeletal, gastrointestinal, as well as other pathologies. IMPRESSION/MEDICAL DECISION MAKING: No significant leg swelling or calf tenderness. Lower suspicion for DVT or PE at this time. Had some infectious symptoms productive cough but no sick contacts reported. COVID flu RSV testing is sent. Chest x-ray obtained basic blood work. No active chest pain reported lower suspicion for ACS. Does not appear grossly fluid overload. Question the transient low oxygen at home related to coughing episode. No history of smoking. Does have quite wheezy. Given DuoNeb here. Case management accessed [facility] rather than patient last month had a creatinine of 2. Creatinine 2.1 here today appears stable. No troponin elevation or chest pain and I doubt ACS. No significant electrolyte abnormality otherwise noted. Borderline anemia 13.9 not severe. Slight leukocytosis 12.6 notable. COVID flu RSV testing returns negative. Chest x-ray per radiology stable to slightly improved from previous according to radiology report. Discussed with patient and family members findings. He is not been notable to be hypoxic here. Discussed options with them at bedside. Patient still fairly wheezy. In shared decision making they felt more comfortable with observation. Discussed benefits and associated risks including possible delirium. Will start doxycycline for any occult bacterial infectious process present although I doubt wally pneumonia at this point or sepsis. Hospitalist team consulted DIAGNOSIS: URI with wheezing DISPOSITION: Evaluated by the hospitalist team Patient was agreeable with this plan. Past Med/Surg History Problem List (Updated 07/27/24 @ 00:18 by Herson Kolb M.D.) Breathlessness (Acute) URI (upper respiratory infection) (Acute) Dementia (Acute) Fall (Acute) Hypotension (Acute) Hypoxia (Acute) Medical History (Updated 07/27/24 @ 00:18 by Herson Kolb M.D.) Hx of lymphoma Hx of malignant melanoma Barretts esophagus Vascular dementia with behavior disturbance Essential (primary) hypertension MDD (major depressive disorder) Ambulatory dysfunction Stage 3b chronic kidney disease CAD (coronary artery disease), [place] coronary artery Vitamin D deficiency Gout Altered mental status Social History Smoking Status: Never smoker Hx Substance Use: No Preferred Language: Niuean Communication Ability: Effective 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 Beliefs That Will Affect Care: None Current Living Situation: Spouse Feels Safe at Home: Yes Assistive Devices: Walker Allergies Allergies Allergy/AdvReac Type Severity Reaction Status Date / Time Penicillins Allergy Unknown CAN'T Verified 07/26/24 21:09 REMEMBER codeine AdvReac Intermediate VERY Verified 07/26/24 21:09 ANXIOUS Home Meds Home Medications Medication Instructions Recorded Confirmed cholecalciferol (vitamin D3) 25 0 mcg PO DAILY 07/26/24 07/26/24 mcg (1,000 unit) capsule (Vitamin D3) fluoxetine 20 mg capsule (Prozac) 20 mg PO DAILY 07/26/24 07/26/24 fluoxetine 40 mg capsule (Prozac) 40 mg PO DAILY 07/26/24 07/26/24 gabapentin 100 mg capsule 100 mg PO HS 07/26/24 07/26/24 metoprolol succinate 25 mg 25 mg PO DAILY 07/26/24 07/26/24 tablet,extended release 24 hr multivitamin 1 tab PO DAILY 07/26/24 07/26/24 Previous Rx's Medication Instructions Recorded quetiapine 50 mg tablet (Seroquel) 50 mg PO HS #30 tabs 07/06/22 Results & Data (ED) Vital Signs Vital Signs - 24 hr 07/26/24 16:42 07/26/24 17:14 07/26/24 21:00 Temperature 36.6 C Temperature Source Oral Pulse Rate 66 63 Pulse Rate [Apical] 87 Respiratory Rate 20 22 Blood Pressure 155/88 H Blood Pressure [Right Arm] 142/99 H Blood Pressure Mean 110 Blood Pressure Mean [Right Arm] 113 Blood Pressure Position [Right Arm] Sitting Pulse Oximetry 95 94 Oxygen Delivery Method Room Air Room Air Sepsis Recent Fever Within 48 Hours No Sepsis New/Unexplained Change in Mental Status No Sepsis Action Taken by Nursing No Action Required 07/26/24 21:09 Temperature Temperature Source Pulse Rate 76 Pulse Rate [Apical] Respiratory Rate Blood Pressure Blood Pressure [Right Arm] Blood Pressure Mean Blood Pressure Mean [Right Arm] Blood Pressure Position [Right Arm] Pulse Oximetry Oxygen Delivery Method Sepsis Recent Fever Within 48 Hours Sepsis New/Unexplained Change in Mental Status Sepsis Action Taken by Nursing Laboratory Data 07/26/24 17:27 07/26/24 17:27 Lab Results 07/26/24 07/26/24 Range/Units 17:27 18:07 WBC 12.60 H (4.8-10.8) K/ul RBC 4.24 L (4.70-6.10) M/uL Hgb 13.9 L (14.0-18.0) g/dl Hct 40.0 L (42.0-52.0) % MCV 94.3 (80.0-100.0) fL MCH 32.8 (25.0-34.0) pg MCHC 34.8 (32.0-36.0) g/dL RDW Std Deviation 44.9 (36.4-46.3) fL RDW Coeff of Evans 13.0 (11.5-14.5) % Plt Count 152 (130-400) K/uL MPV 10.5 (9.4-12.4) fL Immature Gran % (Auto) 0.6 % Neut % (Auto) 68.5 % Lymph % (Auto) 10.7 % [place] % (Auto) 16.2 % Eos % (Auto) 3.2 % Baso % (Auto) 0.8 % Neut # (Auto) 8.64 H (1.40-6.50) K/uL Lymph # (Auto) 1.35 (1.20-3.40) K/uL [place] # (Auto) 2.04 H (0.11-0.59) K/uL Eos # (Auto) 0.40 (0.00-0.50) K/uL Baso # (Auto) 0.10 (0.00-0.20) K/uL Immature Gran # (Auto) 0.07 (0.01-0.20) K/uL Sodium 137 (136-145) mmol/L Potassium 4.6 (3.5-5.1) mmol/L Chloride 102 (98-107) mmol/L Carbon Dioxide 28 (21-32) mmol/L Anion Gap 7 (3-11) BUN 29 H (6-23) mg/dl Creatinine 2.10 H (0.6-1.4) mg/dl Est Cr Clr Drug Dosing 28.7 ml/min eGFR 30.28 BUN/Creatinine Ratio 13.8 (10-20) Glucose 84 (70-99(Fasting)) mg/dl Calcium 9.6 (8.6-10.3) mg/dl Magnesium 2.0 (1.7-2.4) mg/dl Total Bilirubin 1.0 (0.2-1.0) mg/dl AST 27 (13-39) U/L ALT 20 (7-52) U/L Alkaline Phosphatase 102 (34-104) U/L Troponin I High Sens 13.6 (0-20) pg/ml Total Protein 6.3 (6.0-8.3) gm/dl Albumin 3.8 (3.4-5.0) gm/dl Globulin 2.5 (2.5-4.0) gm/dl Albumin/Globulin Ratio 1.5 (0.9-2) TSH 5.237 H (0.300-4.500) uIu/ml Free T4 0.83 (0.61-1.60) ng/dl SARS-CoV-2 (PCR) NEGATIVE (Negative) Influenza Type A (PCR) Negative (Neg) Influenza Type B (PCR) Negative (Neg) RSV (RT-PCR) Negative (Neg) Administered Medications Discontinued Medications Albuterol (Albut/Ipratrop 3mg/0.5mg Neb 3 Ml Vial) 3 ml NEB NOW STA; Protocol Stop: 07/26/24 17:52 Last Admin: 07/26/24 18:05 Dose: 3 ml Documented By: QGV Albuterol (Albut/Ipratrop 3mg/0.5mg Neb 3 Ml Vial) 3 ml NEB NOW STA; Protocol Stop: 07/26/24 20:36 Last Admin: 07/26/24 20:57 Dose: 3 ml Documented By: QGV Doxycycline Hyclate (Doxycycline Hyclate 100 Mg Cap) 100 mg PO NOW STA Stop: 07/26/24 20:36 Last Admin: 07/26/24 20:57 Dose: 100 mg Documented By: QGV Albumin Human (Albumin 25%) 25 gm in 100 mls @ 50 mls/hr IV ONE ONE Stop: 07/26/24 22:55 Last Admin: 07/26/24 22:54 Dose: 50 mls/hr Documented By: QGV Menthol (Cough Drop (Sugar Free) Tiffany 24 Tiffany/1 Box) 1 tiffany BUCCAL NOW STA Stop: 07/26/24 17:52 Last Admin: 07/26/24 18:05 Dose: 1 tiffany Documented By: QGV Imaging Data Radiologist's Impression: Chest X-Ray 07/26/24 17:40 EXAM: XR chest 1V not portable CLINICAL HISTORY: URI TECHNIQUE: An X-ray image of the chest is obtained in AP projection. COMPARISON: CXR dated 07/05/2022. FINDINGS: Pulmonary Parenchyma: Opacity in the mid-lower zone of left lung, obscuring cardiac and diaphragmatic border. Likely combination of consolidation and pleural effusion. Improved compared with priors. Increased bronchovascular markings in lungs, related to cardiac congestion. Mildly improved. No pulmonary nodules are identified. No pleural thickening. Heart and Mediastinum: Cardiomegaly. Dual chamber pacemaker with leads in situ. Bony Thorax: Bony thorax appears intact without fractures or deformities. Soft Tissues: Soft tissues overlying the chest wall are unremarkable. IMPRESSION: 1. Combination of left mid-lower zone consolidation and pleural effusion, showing improvement. 2. Cardiac congestion related increased bronchovascular markings in lungs. Mildly improved as well. 3. Cardiomegaly. Electronically signed by Donal Umanzor 07-26-2024 7:45 PM Discharge Plan Visit Data Chief Complaint: Illness Stated Complaint: ILLNESS, COUGH, SOB ED Provider: Herson Kolb Discharge Problem: URI (upper respiratory infection), Breathlessness, Dementia Patient Disposition: Admitted As Inpatient Condition: Fair Discharge Instructions Interventions: ED Discharge Assessment Last Done: 07/26/24 23:11
[2024-07-26 18:20] LABS: Albumin Globulin Ratio 1.5 (0.9-2); Albumin Level 3.8 gm/dl (3.4-5.0); BUN Creatinine Ratio 13.8 (10-20); Calcium 9.6 mg/dl (8.6-10.3); Creatinine Clr Calc Pharmacy 28.7 ml/min; Globulin 2.5 gm/dl (2.5-4.0); Potassium 4.6 mmol/L (3.5-5.1); Total Protein 6.3 gm/dl (6.0-8.3)
[2024-07-26 18:25] LABS: Troponin I High Sensitivity 13.6 pg/ml (0-20)
[2024-07-26 19:13] LABS: Influenza A virus by PCR Negative (Neg); Influenza B virus by PCR Negative (Neg); RSV by PCR Negative (Neg); SARS CoV2 RNA(COVID-19) Ceph NEGATIVE (Negative)
--- NOTE | 2024-07-26 19:47 | XRay Report ---
EXAM: XR chest 1V not portable CLINICAL HISTORY: URI TECHNIQUE: An X-ray image of the chest is obtained in AP projection. COMPARISON: CXR dated 07/05/2022. FINDINGS: Pulmonary Parenchyma: Opacity in the mid-lower zone of left lung, obscuring cardiac and diaphragmatic border. Likely combination of consolidation and pleural effusion. Improved compared with priors. Increased bronchovascular markings in lungs, related to cardiac congestion. Mildly improved. No pulmonary nodules are identified. No pleural thickening. Heart and Mediastinum: Cardiomegaly. Dual chamber pacemaker with leads in situ. Bony Thorax: Bony thorax appears intact without fractures or deformities. Soft Tissues: Soft tissues overlying the chest wall are unremarkable. IMPRESSION: 1. Combination of left mid-lower zone consolidation and pleural effusion, showing improvement. 2. Cardiac congestion related increased bronchovascular markings in lungs. Mildly improved as well. 3. Cardiomegaly. Electronically signed by Donal Umanzor 07-26-2024 7:45 PM
[2024-07-26] MEDS: DOXYCYCLINE HYCLATE 100 MG CAP PO STA (20:57)
--- NOTE | 2024-07-26 22:23 | History & Physical Report ---
Date of Service July 26, 2024 Assessment & Plan (1) Aspiration pneumonia: Plan: Aspiration pneumonia History esophageal dysphagia as per records No sepsis for now hx CAD/PVD complete heart block status post PPM valvular heart disease (mild AR/MR/TR, TTE 2023), PVD hypertension, stable hyperlipidemia, on statin Rx follicular lymphoma status postchemotherapy, in remission prediabetes, hemoglobin A1c of 5.8 from last year CRI, creatinine at baseline chronic anemia, hemoglobin at baseline Cheek melanoma status post surgery dementia, patient mentating well OBS Admit to med/tele Clindamycin Nebs RTC given prominent wheezing Aspiration precautions, [employer] eval DVT prophylaxis. Heparin subcu Full code Patient daughter requesting updates providers. Ms. Indy Burroughs, contact #[phone]. Text document was generated using [employer] voice recognition software. It may contain grammatical or spelling errors. Kindly contact undersigned for clarification of any documentation item in question. History of Present Illness Chief Complaint: Worsening cough, SOB Primary Care Provider: Melissa Bean MD History obtained from patient, family, and records. Limited history from patient secondary to dementia. Medical history significant for CAD, complete heart block status post PPM, valvular heart disease (mild AR/MR/TR, TTE 2023), PVD, NSVT, PVCs, hypertension, hyperlipidemia, follicular lymphoma status postchemotherapy, GERD status post surgery, esophageal dysphagia as per records, prediabetes, CRI (baseline creatinine 2), chronic anemia (baseline hemoglobin 13), skin cancer status post surgery, dementia, mood disorder. Last confinement 2022 for altered mental status. 1 week history of worsening junky cough symptoms associated with SOB. Not sure about sick contacts. Denies chest pain or fluid retention. Coughing with meals/water intake as per family. O2 sats noted to be 80s at home as per family. Patient brought to ER for evaluation. Doxycycline administered at the ER. 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 Allergies Allergy/AdvReac Type Severity Reaction Status Date / Time Penicillins Allergy Unknown CAN'T Verified 07/26/24 21:09 REMEMBER codeine AdvReac Intermediate VERY Verified 07/26/24 21:09 ANXIOUS Home Medications Medication Instructions Recorded Confirmed Type quetiapine 50 mg tablet (Seroquel) 50 mg PO HS #30 tabs 07/06/22 07/26/24 Rx cholecalciferol (vitamin D3) 25 0 mcg PO DAILY 07/26/24 07/26/24 History mcg (1,000 unit) capsule (Vitamin D3) fluoxetine 20 mg capsule (Prozac) 20 mg PO DAILY 07/26/24 07/26/24 History fluoxetine 40 mg capsule (Prozac) 40 mg PO DAILY 07/26/24 07/26/24 History gabapentin 100 mg capsule 100 mg PO HS 07/26/24 07/26/24 History metoprolol succinate 25 mg 25 mg PO DAILY 07/26/24 07/26/24 History tablet,extended release 24 hr multivitamin 1 tab PO DAILY 07/26/24 07/26/24 History Past Med/Surg History Problem List (Updated 07/27/24 @ 09:48 by Storm Faith MD) Aspiration pneumonia Breathlessness (Acute) URI (upper respiratory infection) (Acute) Dementia (Acute) Fall (Acute) Hypotension (Acute) Hypoxia (Acute) Medical History (Updated 07/27/24 @ 09:48 by Storm Faith MD) Hx of lymphoma Hx of malignant melanoma Barretts esophagus Vascular dementia with behavior disturbance Essential (primary) hypertension MDD (major depressive disorder) Ambulatory dysfunction Stage 3b chronic kidney disease CAD (coronary artery disease), [place] coronary artery Vitamin D deficiency Gout Altered mental status Social History Smoking Status: Never smoker Tobacco Type: Declines Hx Alcohol Use: Yes Alcohol type: wine Hx Substance Use: No Preferred Language: Italian Communication Ability: Effective Finish Patcher Required: No Beliefs That Will Affect Care: None Current Living Situation: Spouse Current Living Situation Comment: home with Other Information That Helps Us Care for You: No Feels Safe at Home: Yes Safety Concerns: Feels Safe At This Time Assistive Devices: Glasses, Hearing Aid - Bilateral and Walker Review of Systems Review of Systems: Could not be reliably obtained secondary to dementia Physical Exam Physical Exam: GENERAL: Comfortable, pleasant, obese, no respiratory distress SKIN: Normal color, warm HEENT: [place] palpebral conjunctivae, no ptosis, dry buccal mucosa NECK : Supple, no tenderness CHEST : Decreased breath sounds, expiratory wheezes, no tenderness HEART : RRR, no obvious murmurs ABDOMEN: Some distention, nontender EXTREMITIES : No LE swelling/tenderness, palpable pulses, no other conspicuous deformities noted NEUROLOGIC : Demented, no facial asymmetry, no other gross focality Results & Data Results & Data Vital Signs (Past 12 Hours) Vital Signs Temp Pulse Pulse Resp BP BP Pulse Ox 07/26/24 21:09 76 07/26/24 21:00 87 22 142/99 H 94 07/26/24 17:14 63 07/26/24 16:42 36.6 C 66 20 155/88 H 95 O2 Del Method 07/26/24 21:09 07/26/24 21:00 Room Air 07/26/24 17:14 07/26/24 16:42 Room Air Laboratory Results Laboratory Results WBC 12.60 K/ul (4.8-10.8) H 07/26/24 17: RBC 4.24 M/uL (4.70-6.10) L 07/26/24 17:27 Hgb 13.9 g/dl (14.0-18.0) L 07/26/24 17: Hct 40.0 % (42.0-52.0) L 07/26/24 17:27 MCV 94.3 fL (80.0-100.0) 07/26/24 17: MCH 32.8 pg (25.0-34.0) 07/26/24 17: MCHC 34.8 g/dL (32.0-36.0) 07/26/24 17:27 RDW Std Deviation 44.9 fL (36.4-46.3) 07/26/24 17: RDW Coeff of Evans 13.0 % (11.5-14.5) 07/26/24 17: Plt Count 152 K/uL (130-400) 07/26/24 17: MPV 10.5 fL (9.4-12.4) 07/26/24 17:27 Immature Gran % (Auto) 0.6 % 07/26/24 17: Neut % (Auto) 68.5 % 07/26/24 17:27 Lymph % (Auto) 10.7 % 07/26/24 17:27 [place] % (Auto) 16.2 % 07/26/24 17: Eos % (Auto) 3.2 % 07/26/24 17:27 Baso % (Auto) 0.8 % 07/26/24 17: Neut # (Auto) 8.64 K/uL (1.40-6.50) H 07/26/24 17: Lymph # (Auto) 1.35 K/uL (1.20-3.40) 07/26/24 17:27 [place] # (Auto) 2.04 K/uL (0.11-0.59) H 07/26/24 17: Eos # (Auto) 0.40 K/uL (0.00-0.50) 07/26/24 17: Baso # (Auto) 0.10 K/uL (0.00-0.20) 07/26/24 17: Immature Gran # (Auto) 0.07 K/uL (0.01-0.20) 07/26/24 17:27 Sodium 137 mmol/L (136-145) 07/26/24 17: Potassium 4.6 mmol/L (3.5-5.1) 07/26/24 17: Chloride 102 mmol/L (98-107) 07/26/24 17: Carbon Dioxide 28 mmol/L (21-32) 07/26/24 17:27 Anion Gap 7 (3-11) 07/26/24 17: BUN 29 mg/dl (6-23) H 07/26/24 17:27 Creatinine 2.10 mg/dl (0.6-1.4) H 07/26/24 17:27 Est Cr Clr Drug Dosing 28.7 ml/min 07/26/24 17: eGFR 30.28 07/26/24 17:27 BUN/Creatinine Ratio 13.8 (10-20) 07/26/24 17: Glucose 84 mg/dl (70-99(Fasting)) 07/26/24 17: Calcium 9.6 mg/dl (8.6-10.3) 07/26/24 17: Magnesium 2.0 mg/dl (1.7-2.4) 07/26/24 17: Total Bilirubin 1.0 mg/dl (0.2-1.0) 07/26/24 17: AST 27 U/L (13-39) 07/26/24 17: ALT 20 U/L (7-52) 07/26/24 17:27 Alkaline Phosphatase 102 U/L (34-104) 07/26/24 17:27 Troponin I High Sens 13.6 pg/ml (0-20) 07/26/24 17:27 Total Protein 6.3 gm/dl (6.0-8.3) 07/26/24 17:27 Albumin 3.8 gm/dl (3.4-5.0) 07/26/24 17: Globulin 2.5 gm/dl (2.5-4.0) 07/26/24 17: Albumin/Globulin Ratio 1.5 (0.9-2) 07/26/24 17:27 SARS-CoV-2 (PCR) NEGATIVE (Negative) 07/26/24 18:07 Influenza Type A (PCR) Negative (Neg) 07/26/24 18:07 Influenza Type B (PCR) Negative (Neg) 07/26/24 18:07 RSV (RT-PCR) Negative (Neg) 07/26/24 18:07 Impressions Chest X-Ray 07/26/24 17:40 EXAM: XR chest 1V not portable CLINICAL HISTORY: URI TECHNIQUE: An X-ray image of the chest is obtained in AP projection. COMPARISON: CXR dated 07/05/2022. FINDINGS: Pulmonary Parenchyma: Opacity in the mid-lower zone of left lung, obscuring cardiac and diaphragmatic border. Likely combination of consolidation and pleural effusion. Improved compared with priors. Increased bronchovascular markings in lungs, related to cardiac congestion. Mildly improved. No pulmonary nodules are identified. No pleural thickening. Heart and Mediastinum: Cardiomegaly. Dual chamber pacemaker with leads in situ. Bony Thorax: Bony thorax appears intact without fractures or deformities. Soft Tissues: Soft tissues overlying the chest wall are unremarkable. IMPRESSION: 1. Combination of left mid-lower zone consolidation and pleural effusion, showing improvement. 2. Cardiac congestion related increased bronchovascular markings in lungs. Mildly improved as well. 3. Cardiomegaly. Electronically signed by Donal Umanzor 07-26-2024 7:45 PM Diagnostic Findings EKG as per my interpretation :Rate 60, paced rhythm
[2024-07-26] MEDS ORDERED: PROMETHAZINE 6.25 MG/50.25 ML BAG IV PRN (22:37)
[2024-07-26] MEDS ORDERED: ACETAMINOPHEN 325 MG TAB PO PRN (22:37)
[2024-07-26] MEDS ORDERED: cefTRIAXone SODIUM 2,000 MG/50 ML BAG IV SCH (22:45)
[2024-07-26] MEDS ORDERED: MELATONIN 3 MG TAB PO PRN (22:47)
[2024-07-26] MEDS: ALBUMIN 25% 25 GM/100 ML VIAL IV ONE (22:54)
[2024-07-26 23:19] LABS: Thyroid Stimulating Hormone 5.237 uIu/ml (0.300-4.500)
[2024-07-26 23:59] LABS: T4 Free Thyroxine 0.83 ng/dl (0.61-1.60)
[2024-07-27] MEDS: CLINDAMYCIN/D5W 600 MG/50 ML BAG IV STA (00:17)
[2024-07-27] MEDS: QUEtiapine FUMARATE 25 MG TABLET PO SCH (00:17)
[2024-07-27] MEDS: ALBUT/IPRATROP 3MG/0.5MG NEB 3 ML VIAL NEB SCH (01:02)
[2024-07-27 06:20] LABS: Basophils % (auto) 0.9 %; Eosinophils # (auto) 0.33 K/uL (0.00-0.50); Eosinophils % (auto) 2.9 %; Hematocrit (blood only) 36.5 % (42.0-52.0); Hemoglobin 12.5 g/dl (14.0-18.0); Immature Granulocytes # (auto) 0.05 K/uL (0.01-0.20); Immature Granulocytes % (auto) 0.4 %; Lymphocytes # (auto) 1.59 K/uL (1.20-3.40); Lymphocytes % (auto) 13.9 %; Mean Corpuscular Hemoglobin 32.5 pg (25.0-34.0); Mean Corpuscular Hgb Conc 34.2 g/dL (32.0-36.0); Mean Corpuscular Volume 94.8 fL (80.0-100.0); Mean Platelet Volume 10.6 fL (9.4-12.4); Monocytes # (auto) 2.14 K/uL (0.11-0.59); Monocytes % (auto) 18.7 %; Neutrophils # (auto) 7.26 K/uL (1.40-6.50); Neutrophils % (auto) 63.2 %; Platelet Count 138 K/uL (130-400); RDW Coefficient of Variation 13.1 % (11.5-14.5); RDW Standard Deviation 45.3 fL (36.4-46.3); Red Blood Count 3.85 M/uL (4.70-6.10); White Blood Count 11.47 K/ul (4.8-10.8)
[2024-07-27] MEDS: HEPARIN SOD 5,000 UNIT/0.5 ML VIAL SQ SCH (06:34)
[2024-07-27 06:48] LABS: BUN Creatinine Ratio 14.1 (10-20); Calcium 9.4 mg/dl (8.6-10.3); Creatinine Clr Calc Pharmacy 28.7 ml/min; Potassium 4.3 mmol/L (3.5-5.1)
[2024-07-27] MEDS: DOXYCYCLINE HYCLATE 100 MG CAP PO SCH (08:23)
[2024-07-27] MEDS: METOPROLOL SUCC 25MG EXT REL TAB PO SCH (08:23)
[2024-07-27] MEDS: MULTIVITAMIN TAB PO SCH (08:23)
[2024-07-27] MEDS: CLINDAMYCIN HCL 150 MG CAP PO SCH (08:23)
[2024-07-27] MEDS: FLUoxetine HCL 20 MG CAP PO SCH (08:23)
[2024-07-27] MEDS ORDERED: FLUoxetine HCL 20 MG CAP PO SCH (09:00)
--- NOTE | 2024-07-27 10:30 | Electrocardiogram Report ---
Test Reason : Blood Pressure : */* mmHG Vent. Rate : 62 BPM Atrial Rate : 62 BPM P-R Int : 400 ms QRS Dur : 180 ms QT Int : 478 ms P-R-T Axes : 11 -64 105 degrees QTcB Int : 485 ms Atrial-sensed ventricular-paced rhythm with prolonged AV conduction Abnormal ECG When compared with ECG of 05-Jul-2022 03:37, Vent. rate has decreased by 18 bpm Confirmed by Joni Wilkes ([id number]) on 07/27/2024 10:29:42 AM Referred By: REFERRED SELF Confirmed By: Joni Wilkes
--- NOTE | 2024-07-27 10:46 | Hospitalist Progress Note ---
Date of Service July 27, 2024 Assessment & Plan (1) Aspiration pneumonia: Plan Pt is an 83yoM with PMhx significant for CAD, complete heart block status post PPM, valvular heart disease (mild AR/MR/TR, TTE 2023), PVD, NSVT, PVCs, hypertension, hyperlipidemia, follicular lymphoma status postchemotherapy, GERD status post surgery, esophageal dysphagia as per records, prediabetes, CRI (baseline creatinine 2), chronic anemia (baseline hemoglobin 13), skin cancer status post surgery, dementia, mood disorder who presents with concern for cough and SOB. 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 Heparin subcu Full code Admission and Anticipated Discharge Date Admission Date: July 26, 2024 Subjective Pt was seen sitting up in bed AKIAK Wheezing Review of Systems Review of Systems: All systems reviewed & are unremarkable except as noted in Subjective Physical Exam Physical Exam: General: Alert, oriented. No acute distress HEENT: NC/AT CV: RRR Resp: Breath sounds with wheezing bilaterally, no increased effort of breathing Abdomen: Soft, nontender, nondistended Extremities: No edema in lower extremities bilaterally. Results & Data Results & Data Vital Signs (Past 12 Hours) Vital Signs Temp Pulse Pulse Pulse Resp BP Pulse Ox 07/27/24 07:41 07/27/24 07:28 36.5 C 68 18 135/67 100 07/27/24 07:17 73 19 91 07/27/24 07:14 70 07/27/24 02:52 36.5 C 76 18 111/68 92 07/27/24 01:02 69 22 91 07/27/24 00:28 07/27/24 00:04 36.7 C 67 24 173/97 H 94 07/26/24 23:47 68 07/26/24 22:59 68 22 133/69 92 O2 Del Method FiO2 07/27/24 07:41 Room Air 07/27/24 07:28 Room Air 07/27/24 07:17 Room Air 21 07/27/24 07:14 07/27/24 02:52 Room Air 07/27/24 01:02 Room Air 07/27/24 00:28 Room Air 07/27/24 00:04 Room Air 07/26/24 23:47 07/26/24 22:59 Room Air Diagnostic Findings Chest X-Ray 07/26/24 17:40 EXAM: XR chest 1V not portable CLINICAL HISTORY: URI TECHNIQUE: An X-ray image of the chest is obtained in AP projection. COMPARISON: CXR dated 07/05/2022. FINDINGS: Pulmonary Parenchyma: Opacity in the mid-lower zone of left lung, obscuring cardiac and diaphragmatic border. Likely combination of consolidation and pleural effusion. Improved compared with priors. Increased bronchovascular markings in lungs, related to cardiac congestion. Mildly improved. No pulmonary nodules are identified. No pleural thickening. Heart and Mediastinum: Cardiomegaly. Dual chamber pacemaker with leads in situ. Bony Thorax: Bony thorax appears intact without fractures or deformities. Soft Tissues: Soft tissues overlying the chest wall are unremarkable. IMPRESSION: 1. Combination of left mid-lower zone consolidation and pleural effusion, showing improvement. 2. Cardiac congestion related increased bronchovascular markings in lungs. Mildly improved as well. 3. Cardiomegaly. Electronically signed by Donal Umanzor 07-26-2024 7:45 PM
--- OUTSIDE RECORDS SUMMARY | 2024-07-27 16:12 | External Medical Summary ---
Author Name Unknown Address Unknown Organization : Laboratory Report Ordering Provider Test Date Status LIDA SEN 06/27/2024 13:23:07 Final Observation Date Value Abnormality Reference (Units ) Status Beta-2 Microglobulin 06/27/2024 13:23:07 5.51 Above high normal <=2.51 (mg/L) Final Test Performed at:
[facility]
[address] [place] [address]
Matty Hernandez M.D., Ph.D.,Director of Laboratories Performing Location
--- OUTSIDE RECORDS SUMMARY | 2024-07-27 16:12 | External Medical Summary | Summary of Care ---
Author Name Unknown Organization [facility] Address [address] [place] [address] Phone [phone] Care Team Providers Care Quality Control Representative Name Role Phone Melissa Bean MD Primary Care Provider Reason for Visit * Reason Comments Outpatient Testing Encounter Details Date Type Department Care Team (Late st Contact Info) Description 06/27/2024 1:00 PM EDT Laboratory Laboratory, [facility] [address] [place] [address] [facility] [address] [place] [address] Hx of lymphoma; Hx of malignant melanoma Allergies Active Allergy Reactions Criticality Noted Date Comments Codeine 03/25/2022 Egg-Derived Products 03/25/2022 But no reaction to the flu vaccine. Aversion, not allergy Penicillins 03/25/2022 documented as of this encounter (statuses as of 06/27/2024) Medications Acetaminophen 325 MG Oral Tablet (Tylenol) Take 2 Tablets by mouth. As needed Active Multi-Vitamin Oral Tablet Take 1 Tablet by mouth in the morning. Active Vitamin D High Potency 25 MCG (1000 UT) Oral Capsule (Cholecalciferol ) Take 1 Capsule by mouth in the morning. Active LORazepam 1 MG Oral Tablet (Ativan) Take one pill 1 hour before MRI. Can take a second pill 30-60 min if needed. This may make you unsteady on your feet, so make sure you have someone to help you walk. 5 Tablet 4 Active Atorvastatin Calcium 40 MG Oral Tablet (Lipitor)Indicat ions:Coronary artery disease involving round valley coronary artery of round valley heart without angina pectoris Take 1 Tablet by mouth in the morning. 90 Tablet 3 5 Active Metoprolol Succinate ER 25 MG Oral Tablet Extended Release 24 Hour (toPROL XL)Indications:E ssential hypertension,PVC (premature ventricular contraction) TAKE 1 TABLET BY MOUTH EVERY MORNING 90 Tablet 5 Active FLUoxetine HCl 40 MG Oral Capsule (PROzac) Take 60 mg (one 40 mg pill and one 20 mg pill) every morning. 90 Capsule 3 5 Active FLUoxetine HCl 20 MG Oral Capsule (PROzac) Take 60 mg (one 40 mg pill and one 20 mg pill) every morning. 90 Capsule 3 5 Active documented as of this encounter (statuses as of 06/27/2024) Active Problems Problem Noted Date Diagnosed Date CHB (complete heart block) 06/24/2023 Prediabetes 06/20/2023 Overview: Per Prediabetes protocol Disorder of rotator cuff 05/25/2023 Enthesopathy of hip region 05/25/2023 Recurrent major depressive disorder 06/23/2022 Hx of malignant melanoma 03/31/2022 Overview (03/31/2022): R cheek, 0.7mm, Solis IV. 12/2013. Hx of lymphoma 03/31/2022 Overview (03/31/2022): State IIIA. Follicular. S/p bendamustine/rituximab 6 cycles competed 10/2011. ROBERT as of 11/2020. Vitamin D deficiency 03/25/2022 Coronary artery disease invo lving round valley coronary artery of round valley heart without angina pectoris 03/25/2022 Rice's esophagus 03/25/2022 Ambulatory dysfunction 08/01/2021 MDD (major depressive disord er), single episode with atypical features 06/08/2021 Vascular dementia with behavior disturbance 12/2 Overview (10/25/2022): Mild. Mixed with Alzheimers per neuropsych 10/2022 Carpal tunnel syndrome 03/15/2018 Osteoarthritis of hip 03/15/2018 Chronic idiopathic gout involving toe 05/31/2017 Stage 3b chronic kidney disease 05/31/2017 Pacemaker 11/30/2016 Gout 09/09/2016 Essential hypertension 04/15/2011 Overview (03/25/2022): ICD-10 Transition ICD-10 Transition documented as of this encounter (statuses as of 06/27/2024) Resolved Problems Problem Noted Date Diagnosed Date Resolved Date Prepatellar bursitis 09/09/2016 024 Semimembranosus tendinitis 08/04/2016 0 05/25/2023 documented as of this encounter (statuses as of 06/27/2024) Immunizations Name Administration Dates Next Due COVID-19 mRNA, LNP-s, No Pre serve, 2-Dose Series (Treasure Data) 06/23/2021,12/10/2020,05/09/2020,04/18 Hepatitis B, 0-19 yrs 03/06/2007,10/05/2006,07/14 Pneumococcal Conjugate Vacc, 13 Valent (Prevnar) 03/03/2015 Pneumococcal Polysaccharide PPV23 (Pneumovax) 12/08/2020,03/14/2002 Seasonal Influenza, High Dos e, Trivalent, PF, IM (Fluzone HD) 01/04/2019,12/15/2017,11/30/2016,03/17,03/03/2015 Seasonal Influenza, Quadriva lent Hd (Fluzone Hd) 12/24/2022 Seasonal Influenza, Recombin ant, Trivalent, PF (Flublock) 01/07/2022,12/08/2020 TD, Preservative Free 03/09/2005 TDAP (age 10 and older)(Boostrix) 04/21/2015 documented as of this encounter Social History Tobacco Use Types Packs/Day Years Used Date Smoking Tobacco: Never Smokeless Tobacco: Never Alcohol Use Standard Drinks/Week Comments Yes 0 (1 standard drink = 0.6 oz pur e alcohol) 1-2 glasses of wine/month PHQ-2 Answer Date Recorded PHQ Adult Total Score 0 06/23/2022 Hunger Vital Sign Answer Date Recorded Within the past 12 months, y ou worried that your food would run out before you got the money to buy more. Never true 03/26/19 25 Within the past 12 months, t he food you bought just didn't last and you didn't have money to get more. Never true 03/26/2024 Childcare Answer Date Recorded Do you feel overwhelmed with taking care of a child, family member or friend? No 03/26/2024 Does your family need help f inding childcare? (Household - for ages 0-17 years) Not on file 03/26/2024 Clothing Answer Date Recorded Have you been unable to get clothing when it was really needed? No 03/26/2024 Is your family able to get c lothes or diapers when needed? (Household - for ages 0-17 years) Not on file 03/26/2024 Personal Safety Answer Date Recorded Do you feel unsafe or have concerns for your saf ety? No 03/26/2024 Do you have concerns for you r family's safety? (Household - for ages 0-17 years) Not on file 03/26/2024 Utilities Answer Date Recorded Do you have trouble paying y our heating, water, or electric bill? No 03/26/2024 Is your family able to pay t he heat, water, or electric bill? (Household - for ages 0-17 years) Not on file 03/26/2024 Does your family have access to good internet? (Household - for ages 0-17 years) Not on file 03/26/2024 Employment Status Answer Date Recorded Are you unemployed or without regular income? No 03/26/2024 Does the household have a re gular source of income? (Household - for ages 0-17 years) Not on file 03/26/2024 Social Connections Answer Date Recorded How often do you feel lonely or isolated from those around you? Sometimes 03/26/2024 Financial Resource Strain Answer Date R ecorded Do you have any trouble payi ng for your medications, or do you think you might in the future? No 03/26/2024 Does your family have troubl e paying for medicine? (Household - for ages 0-17 years) Not on file 03/26/2024 Transportation Needs Answer Date Record ed READ ONLY Do you have troubl e getting a ride to medical visits or work? Never True 03/26/2024 Does your family have a hard time getting a ride to doctors visits? (Household - for ages 0-17 years) Not on file 03/26/2024 Has lack of transportation k ept you from medical appointments, meetings, work, or from getting things needed for daily living? Check all that apply. No 03/26/2024 Do you (or your family) have trouble finding or paying for a ride (transportation)? (Household - for ages 0-17 years) Not on file 03/26/2024 Housing Stability Answer Date Recorded Do you currently live in a s helter or have no steady place to sleep at night? No 03/26/2024 READ ONLY Do you think you a re at risk of becoming homeless? No 03/26/2024 Does your family worry about paying for your home or becoming homeless? (Household - for ages 0-17 years) Not on file 0 03/26/2024 Are you homeless or worried that you might be in the future? No 03/26/2024 Are you (or your family) pao eless or worried that you might be in the future? (Household - for ages 0-17 years) Not on file Food Insecurity Answer Date Recorded Do you need food for this week? No 03/26/2024 Are you able to get enough f ood for your family? (Household - for ages 0-17 years) Not on file 03/26/2024 Does your family need food t his week? (Household - for ages 0-17 years) Not on file 03/26/2024 Do you always have enough fo od for your family? (Household - for ages 0-17 years) Not on file 03/26/2024 Food Insecurity Answer Date Recorded Within the past 12 months, y ou worried that your food would run out before you got the money to buy more. Never true 03/26/19 25 Within the past 12 months, t he food you bought just didn't last and you didn't have money to get more. Never true 03/26/2024 Do you need food for this week? No 03/26/2024 Sex and Gender Information Value Date Recorded Sex Assigned at Not on file Legal Sex Male 9:12 AM EDT Gender Identity Not on file Sexual Orientation Not on file documented as of this encounter Plan of Treatment Upcoming Encounters Date Type Department Care Team (Latest Contact Info) Description 5 3:00 PM EDT Office Visit Hematology/Onco logy [facility] [place] [place] [address] [place], [place] [phone] Trinh Donahue MD [address] [place] [address] 5 2:30 PM EDT Telemedicine Psychiatry [place] [address] [place] [address] Renetta Cox MD [address] [place] [address] 5 11:15 AM EDT Hospital Encounter ENDO OSSC, Endoscopy Room [facility] [address] [place] [phone] Selvin Brower MD [address] [place] [address] 5 11:15 AM EDT - 5 11:45 AM EDT Surgery ENDO OSSC, Endoscopy Room [facility] [address] [place] [phone] Selvin Brower MD [address] [place] [address] ESOPHAGOGASTRODUODENOSCOPY (EGD), FLEXIBLE, TRANSORAL, DIAGNOSTIC 5 2:30 PM EDT Office Visit Cardiology, [facility] [address] [place] [address] Crystal Hanna CRNP [address] [place] [address] 11:00 AM EDT Office Visit Dermatology [facility] [place] [address] [place] [address] Trinh Edwards PA-C [address] [place] [address] Pending Results Name Type Priority Associated Diagnoses Date /Time COMPREHENSIVE METABOLIC PANEL Lab Routine Hx of lymphoma Hx of malignant melanoma 06/27/2024 1:23 PM EDT LD Lab Routine Hx of lymphoma Hx of malignant melanoma 06/27/2024 1:23 PM EDT [id number], SERUM Lab Routine Hx of lymphoma Hx of malignant melanoma 06/27/2024 1:23 PM EDT Scheduled Procedures Name Priority Associated Diagnoses Date/Ti tx ESOPHAGOGASTRODUODENOSCOPY ( EGD), FLEXIBLE, TRANSORAL, DIAGNOSTIC Esophageal dysphagia 08/08/2024 11:15 AM EDT Health Maintenance Due Date Last Done Comments Rice's Esophagus Surveilance 1938 Depression Monitoring 1950 Albumin/Creatinine Ratio 1956 Zoster Vaccines (1 of 2) 1988 Adult Wellness Visit 2004 CKD PHOS USE SMARTSET 81634 05/24/2024 05/25/2023 HbA1c 05/24/2024 05/25/2023, 01/09/2019 COVID-19 Vaccine ( season) 2024 12/15/2023, 02/09/2023, 06/23/2021, Additional history exists DTap/Tdap Vaccines (2 - Td or Tdap) 04/21/2025 04/21/2015, 03/09/2005 CKD HGB USE SMARTSET 58453 06/27/202506/27, 06/27/2024, 12/30/2023, Additional history exists Hepatitis B Vaccine Aged Out 03/06/2007, 10/05/2006, 08/10/2006 No longer eligible based on patient's age to complete this topic Pneumococcal Vaccine: 50+ Years Completed 12/08/2020, 03/03/2015, 03/14/2002 Influenza Vaccine (FLU shot) Completed 05/2023, 12/24/2022, 12/24/2022, Additional history exists HPV (Gardasil) Vaccine Aged Out No lo nger eligible based on patient's age to complete this topic MENINGOCOCCAL (MENACTRA/MENVEO) Aged Out No longer eligible based on patient's age to complete this topic Meningitis B Vaccine (Bexsero/Trumemba) Aged Out No longer eligible based on patient's age to complete this topic documented as of this encounter Medical Devices Not on filedocumented as of this encounter Procedures Procedure Name Priority Date/Time Associated Diagnosis Comments DIFFERENTIAL, AUTOMATED Routine 06/27/2024 1:23 PM EDT Hx of lymphoma Hx of malignant melanoma CBC Routine 06/27/2024 1:23 PM EDT Hx of lymphoma Hx of malignant melanoma CBC Routine 06/27/2024 1:23 PM EDT Hx of lymphoma Hx of malignant melanoma documented in this encounter Results * (ABNORMAL) DIFFERENTIAL, AUTOMATED (06/27/2024 1:23 PM EDT) WBC 11.84(H) 4.00 - 10.80 K/uL 06/27/2024 1:44 PM EDT [facility] Neutrophils % 59.9 40.0 - 75.0 % 06/27/2024 1:44 PM EDT [facility] Lymphocytes % 21.8 18.0 - 42.0 % 06/27/2024 1:44 PM EDT [facility] Monocytes % 15.2(H) 1.0 - 11.0 % 06/27/2024 1:44 PM EDT [facility] Eosinophils % 2.5 0.0 - 6.0 % 06/27/2024 1:44 PM EDT [facility] Basophils % 0.6 0.0 - 2.0 % 06/27/2024 1:44 PM EDT [facility] Absolute Neutrophils 7.09 1.80 - 7.70 K/uL 06/27/2024 1:44 PM EDT [facility] Absolute Lymphocytes 2.58 1.00 - 4.80 K/ul 06/27/2024 1:44 PM EDT [facility] Absolute Monocytes 1.80(H) 0.00 - 1.10 K/uL 06/27/2024 1:44 PM EDT [facility] Absolute Eosinophils 0.30 0.00 - 0.70 K/uL 06/27/2024 1:44 PM EDT [facility] Absolute Basophils 0.07 0.00 - 0.20 K/uL 06/27/2024 1:44 PM EDT [facility] Blood Venous blood specimen / Unknown Venipuncture / Unknown 06/27/2024 1:23 PM EDT 06/27/2024 1:23 PM EDT Trinh Donahue MD LAB BLOOD ORDERABLES Fin al Result [facility] [place] [address] * (ABNORMAL) CBC (06/27/2024 1:23 PM EDT) WBC 11.84(H) 4.00 - 10.80 K/uL 06/27/2024 1:44 PM EDT [facility]10 RBC 4.40 4.50 - 5.25 M/uL 06/27/2024 1:44 PM EDT [facility] HGB 14.2 14.0 - 16.8 g/dL 06/27/2024 1:44 PM EDT [facility] HCT 42.8 40.0 - 48.4 % 06/27/2024 1:44 PM EDT [facility] MCV 97.3 82.0 - 99.5 fL 06/27/2024 1:44 PM EDT [facility]10 MCH 32.3 27.0 - 34.0 pg 06/27/2024 1:44 PM EDT [facility]10 MCHC 33.2 32.0 - 36.0 g/dL 06/27/2024 1:44 PM EDT [facility]10 RDW 13.4 11.5 - 15.5 % 06/27/2024 1:44 PM EDT [facility]10 PLT 190 140 - 400 K/uL 06/27/2024 1:44 PM EDT [facility]10 MPV 10.3 6.6 - 11.1 fL 06/27/2024 1:44 PM EDT [facility]10 Blood Venous blood specimen / Unknown Venipuncture / Unknown 06/27/2024 1:23 PM EDT 06/27/2024 1:23 PM EDT Trinh Donahue MD LAB BLOOD ORDERABLES Fin al Result [facility] [address] [place] [address] documented in this encounter Visit Diagnoses Diagnosis Hx of lymphoma Personal history of other lymphatic and hematopoietic neoplasm Hx of malignant melanoma Personal history of malignant melanoma of skin Esophageal dysphagia Dysphagia, pharyngoesophageal phase documented in this encounter Care Teams Quality Control Representative Relationship Specialty Start Date End Date Melissa Bean MD [address] [place] [address] PCP - General Internal Medicine 03/25/22 documented as of this encounter
--- OUTSIDE RECORDS SUMMARY | 2024-07-27 16:12 | External Medical Summary ---
Author Name Unknown Address Unknown Organization K01:[facility] [address] [place] [address] Laboratory Report Ordering Provider Test Date Status LIDA SEN 06/27/2024 13:23:07 Final Observation Date Value Abnormality Reference (Units ) Status LDH 06/27/2024 13:23:07 251 Above high normal <= 250 (U/L) Final Performing Location [facility] [address] [place] [address]
--- OUTSIDE RECORDS SUMMARY | 2024-07-27 16:12 | External Medical Summary | Summary of Care ---
Author Name Unknown Organization [facility] Address [address] [place] [address] Phone [phone] Care Team Providers Care Gym Instructor Name Role Phone Melissa Bean MD Primary Care Provider Encounter Details Date Type Department Care Team (Late st Contact Info) Description 04/16/2024 Telephone Sleep Disorders C[facility] [place] [phone] Fawn Trejo DO [address] [place] [place] [phone] Allergies Active Allergy Reactions Criticality Noted Date Comments Codeine 03/25/2022 Egg-Derived Products 03/25/2022 But no reaction to the flu vaccine. Aversion, not allergy Penicillins 03/25/2022 documented as of this encounter (statuses as of 07/17/2024) Medications Acetaminophen 325 MG Oral Tablet (Tylenol) Take 2 Tablets by mouth. As needed Active Multi-Vitamin Oral Tablet Take 1 Tablet by mouth in the morning. Active Vitamin D High Potency 25 MCG (1000 UT) Oral Capsule (Cholecalcifero l) Take 1 Capsule by mouth in the morning. Active LORazepam 1 MG Oral Tablet (Ativan) Take one pill 1 hour before MRI. Can take a second pill 30-60 min if needed. This may make you unsteady on your feet, so make sure you have someone to help you walk. 5 Tablet 06/13/2023 Active documented as of this encounter (statuses as of 07/17/2024) Active Problems Problem Noted Date Diagnosed Date CHB (complete heart block) 06/24/2023 Prediabetes 06/20/2023 Overview: Per Prediabetes protocol Disorder of rotator cuff 05/25/2023 Enthesopathy of hip region 05/25/2023 Recurrent major depressive disorder 06/23/2022 Hx of malignant melanoma 03/31/2022 Overview (03/31/2022): R perry, 0.7mm, Solis IV. 12/2013. Hx of lymphoma 03/31/2022 Overview (03/31/2022): State IIIA. Follicular. S/p bendamustine/rituximab 6 cycles competed 10/2011. ROBERT as of 11/2020. Vitamin D deficiency 03/25/2022 Coronary artery disease invo lving [place] coronary artery of [place] heart without angina pectoris 03/25/2022 Rice's esophagus 03/25/2022 Ambulatory dysfunction 08/01/2021 MDD (major depressive disord er), single episode with atypical features 06/08/2021 Vascular dementia with behavior disturbance 02/12 Overview (10/25/2022): Mild. Mixed with Alzheimers per neuropsych 10/2022 Carpal tunnel syndrome 03/15/2018 Osteoarthritis of hip 03/15/2018 Chronic idiopathic gout involving toe 05/31/2017 Stage 3b chronic kidney disease 05/31/2017 Pacemaker 11/30/2016 Gout 09/09/2016 Essential hypertension 04/15/2011 Overview (03/25/2022): ICD-10 Transition ICD-10 Transition documented as of this encounter (statuses as of 07/17/2024) Resolved Problems Problem Noted Date Diagnosed Date Resolved Date Prepatellar bursitis 09/09/2016 024 Semimembranosus tendinitis 08/04/2016 0 05/25/2023 documented as of this encounter (statuses as of 07/17/2024) Immunizations Name Administration Dates Next Due COVID-19 mRNA, LNP-s, No Pre serve, 2-Dose Series (GT Nexus) 06/23/2021,12/10/2020,05/09/2020,04/18 Hepatitis B, 0-19 yrs 03/06/2007,10/05/2006,07/14 Pneumococcal [...] 03/26/2024 Does the household have a re lar source of income? (Household - for ages [...] money to buy more. Never true 03/26/19 Within the past 12 months, t he [...] on file documented as of this encounter Miscellaneous Notes * Telephone Encounter - Judi Eduardo LPN - 04/16/2024 1:34 PM EST Left a message for the pt to return phn call to the office. Asking once again to return the HST device. Please also see 03/22/24 message documented in this encounter Plan of Treatment Upcoming Encounters Date Type Department Care Team (Latest Contact Info) Description 5 11:15 AM EDT Hospital Encounter ENDO [facility], Endoscopy Room [facility] [address] [place] [phone] Selvin Brower MD [address] [place] [address] 5 11:15 AM EDT - 5 11:45 AM EDT Surgery ENDO [facility], Endoscopy Room [facility] [address] [place] [phone] Selvin Brower MD [address] [place] [address] ESOPHAGOGASTRODUODENOSCOPY (EGD), FLEXIBLE, TRANSORAL, DIAGNOSTIC 5 11:30 AM EDT Telemedicine Psychiatry Kalani Cadena [address] [place] [address] Renetta Cox MD [address] [place] [address] 5 2:30 PM EDT Office Visit Cardiology, [facility] [address] [place] [phone] Crystal Hanna CRNP [address] [facility] [place] [address] 5 11:00 AM EDT Office Visit Dermatology [facility] [place] [address] [place] [address] Trinh Edwards PA-C [address] [place] [address] 5 12:20 PM EDT Office Visit Family Practice [facility] [address] [place] [address] Melissa Bean MD [address] [place] [address] 2:00 PM EDT Office Visit Hematology/Onco logy [facility] [address] [place] [phone] Trinh Donahue MD [address] [place] [address] Scheduled Procedures Name Priority Associated Diagnoses Date/Ti me ESOPHAGOGASTRODUODENOSCOPY ( EGD), FLEXIBLE, TRANSORAL, DIAGNOSTIC Esophageal dysphagia 08/08/2024 11:15 AM EDT Health Maintenance Due Date Last Done Comments Rice's Esophagus Surveilance 1938 Depression Monitoring 1950 Albumin/Creatinine Ratio 1956 Zoster Vaccines (1 of 2) 1988 Adult Wellness Visit 2004 CKD PHOS USE SMARTSET 92114 05/24/2024 05/25/2023 HbA1c 05/24/2024 05/25/2023, 01/09/2019 COVID-19 Vaccine ( season) 2024 12/15/2023, 02/09/2023, 06/23/2021, Additional history exists DTap/Tdap Vaccines (2 - Td or Tdap) 04/21/2025 04/21/2015, 03/09/2005 CKD HGB USE SMARTSET 11357 06/27/202506/27, 06/27/2024, 12/30/2023, Additional history exists Hepatitis [...] Not on filedocumented as of this encounter Care Teams Gym Instructor Relationship Specialty Start Date End Date Melissa Bean MD [address] [place] [address] PCP - General Internal Medicine 03/25/22 documented as of this encounter
--- OUTSIDE RECORDS SUMMARY | 2024-07-27 16:12 | External Medical Summary | Summary of Care ---
Author Name Unknown Organization [facility] Address [address] [place] [address] Phone [phone] Care Team Providers Care Child Development Consultant Name Role Phone Melissa Bean MD Primary Care Provider Encounter Details Date Type Department Care Team (Late st Contact Info) Description 07/14/2024 Orders Only PATIENT PORTAL DO NOT DELETE [id number] Allergies Active Allergy Reactions Criticality Noted Date Comments Codeine 03/25/2022 Egg-Derived Products 03/25/2022 But no reaction to the flu vaccine. Aversion, not allergy Penicillins 03/25/2022 documented as of this encounter (statuses as of 07/14/2024) Medications Acetaminophen 325 MG Oral Tablet (Tylenol) [...] Oral Tablet (Lipitor)Indicat ions:Coronary artery disease involving [place] coronary artery of [place] heart without angina pectoris Take 1 Tablet [...] as of this encounter (statuses as of 07/14/2024) Active Problems Problem Noted Date Diagnosed Date [...] deficiency 03/25/2022 Coronary artery disease invo lving [place] coronary artery of [place] heart without angina pectoris 03/25/2022 Rice's esophagus [...] as of this encounter (statuses as of 07/14/2024) Resolved Problems Problem Noted Date Diagnosed Date Resolved Date Prepatellar bursitis 09/09/2016 024 Semimembranosus tendinitis 08/04/2016 0 05/25/2023 documented as of this encounter (statuses as of 07/14/2024) Immunizations Name Administration Dates Next Due COVID-19 mRNA, LNP-s, No Pre serve, 2-Dose Series ([email or web address].la) 06/23/2021,12/10/2020,05/09/2020,04/18 Hepatitis B, 0-19 yrs 03/06/2007,10/05/2006,07/14 Pneumococcal [...] Care Team (Latest Contact Info) Description 5 2:30 PM EDT Telemedicine Psychiatry [address] [place] [phone] Renetta Cox MD [address] [place] [address] 5 11:15 AM EDT Hospital Encounter ENDO [facility], Endoscopy Room [facility] [address] [place] [phone] Selvin Brower MD [address] [place] [address] 5 11:15 AM EDT - 5 11:45 AM EDT Surgery ENDO [facility], Endoscopy Room [facility] [address] [place] [phone] Selvin Brower MD [address] [place] [address] ESOPHAGOGASTRODUODENOSCOPY (EGD), FLEXIBLE, TRANSORAL, DIAGNOSTIC 5 2:30 PM EDT Office Visit Cardiology, [facility] [address] [place] [phone] Crystal Hanna CRNP [address] [place] [address] 5 11:00 AM EDT Office Visit Dermatology [facility] [address] [place] [address] Trinh Edwards PA-C [address] [place] [address] 5 12:20 PM EDT Office Visit Family Practice [facility] [address] [place] [address] Melissa Bean MD [address] [place] [address] 6 2:00 PM EDT Office Visit [place] [facility] [address] [place] [phone] Trinh Donahue MD [address] [place] [address] Scheduled Procedures Name Priority Associated Diagnoses Date/Ti me ESOPHAGOGASTRODUODENOSCOPY ( EGD), FLEXIBLE, TRANSORAL, DIAGNOSTIC Esophageal dysphagia 08/08/2024 11:15 AM EDT Health Maintenance Due Date Last Done Comments Rice's Esophagus Surveilance 1938 Depression Monitoring 1950 Albumin/Creatinine Ratio 1956 Zoster Vaccines (1 of 2) 1988 Adult Wellness Visit 2004 CKD PHOS USE SMARTSET 00042 05/24/2024 05/25/2023 HbA1c 05/24/2024 05/25/2023, 01/09/2019 COVID-19 Vaccine ( season) 2024 12/15/2023, 02/09/2023, 06/23/2021, Additional history exists DTap/Tdap Vaccines (2 - Td or Tdap) 04/21/2025 04/21/2015, 03/09/2005 CKD HGB USE SMARTSET 66446 06/27/202506/27, 06/27/2024, 12/30/2023, Additional history exists Hepatitis [...] filedocumented as of this encounter Care Teams Child Development Consultant Relationship Specialty Start Date End Date Melissa Bean MD [address] [place] [id number] PCP - General Internal Medicine 03/25/22 documented as of this encounter
--- OUTSIDE RECORDS SUMMARY | 2024-07-27 16:12 | External Medical Summary | Summary of Care ---
Author Name Unknown Organization [facility] Address [address] [place] [address] Phone [phone] Care Team Providers Care Assistant Food Service Director Name Role Phone Melissa Bean MD Primary Care Provider Encounter Details Date Type Department Care Team (Late st Contact Info) Description 07/05/2024 Documentation Psychiatry Kalani Cadena [address] [place] [address] Renetta Cox MD [address] [place] [address] Allergies Active Allergy Reactions Criticality Noted Date Comments Codeine 03/25/2022 Egg-Derived Products 03/25/2022 But no reaction to the flu vaccine. Aversion, not allergy Penicillins 03/25/2022 documented as of this encounter (statuses as of 07/05/2024) Medications Acetaminophen 325 MG Oral Tablet (Tylenol) [...] Oral Tablet (Lipitor)Indicat ions:Coronary artery disease involving [place] coronary artery of [place] heart without angina pectoris Take 1 Tablet [...] as of this encounter (statuses as of 07/05/2024) Active Problems Problem Noted Date Diagnosed Date [...] deficiency 03/25/2022 Coronary artery disease invo lving [place] coronary artery of [place] heart without angina pectoris 03/25/2022 Rice's esophagus [...] as of this encounter (statuses as of 07/05/2024) Resolved Problems Problem Noted Date Diagnosed Date Resolved Date Prepatellar bursitis 09/09/2016 024 Semimembranosus tendinitis 08/04/2016 0 05/25/2023 documented as of this encounter (statuses as of 07/05/2024) Immunizations Name Administration Dates Next Due COVID-19 mRNA, LNP-s, No Pre serve, 2-Dose Series (Nexus eWater) 06/23/2021,12/10/2020,05/09/2020,04/18 Hepatitis B, 0-19 yrs 03/06/2007,10/05/2006,07/14 Pneumococcal [...] on file documented as of this encounter Progress Notes * Darby Sosa OSA - 07/05/2024 10:17 AM EDT Placed office visit instructions from 06/26/2024 in the mail to home address in chart. documented in this encounter Plan of Treatment Upcoming Encounters Date Type Department Care Team (Latest Contact Info) Description 5 2:30 PM EDT Telemedicine Psychiatry Kalani Cadena [address] [place] [phone] Renetta Cox MD [address] [place] [address] 5 11:15 AM EDT Hospital Encounter ENDO [facility], Endoscopy Room [facility] [address] [place] [phone] Selvin Brower MD [address] [place] [address] 5 11:15 AM EDT - 5 11:45 AM EDT Surgery ENDO [facility], Endoscopy Room [facility] [address] [place] [phone] Selvin Brower MD [address] [place] [address] ESOPHAGOGASTRODUODENOSCOPY (EGD), FLEXIBLE, TRANSORAL, DIAGNOSTIC 5 2:30 PM EDT Office Visit Cardiology, [facility] [address] [place] [phone] Crystal Hanna CRNP [address] [place] [address] 5 11:00 AM EDT Office Visit Dermatology [facility] [address] [place] [address] Trinh Edwards PA-C [address] [place] [address] 6 2:00 PM EDT Office Visit Hematology/Onco logy [facility] [address] [place] [phone] Trinh Donahue MD [address] [place] [address] Scheduled Procedures Name Priority Associated Diagnoses Date/Ti me ESOPHAGOGASTRODUODENOSCOPY ( EGD), FLEXIBLE, TRANSORAL, DIAGNOSTIC Esophageal dysphagia 08/08/2024 11:15 AM EDT Health Maintenance Due Date Last Done Comments Rice's Esophagus Surveilance 1938 Depression Monitoring 1950 Albumin/Creatinine Ratio 1956 Zoster Vaccines (1 of 2) 1988 Adult Wellness Visit 2004 CKD PHOS USE SMARTSET 40392 05/24/2024 05/25/2023 HbA1c 05/24/2024 05/25/2023, 01/09/2019 COVID-19 Vaccine ( season) 2024 12/15/2023, 02/09/2023, 06/23/2021, Additional history exists DTap/Tdap Vaccines (2 - Td or Tdap) 04/21/2025 04/21/2015, 03/09/2005 CKD HGB USE SMARTSET 05099 06/27/202506/27, 06/27/2024, 12/30/2023, Additional history exists Hepatitis [...] filedocumented as of this encounter Care Teams Assistant Food Service Director Relationship Specialty Start Date End Date Melisas Bean MD [address] [facility] [place] [address] PCP - General Internal Medicine 03/25/22 documented as of this encounter
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
--- OUTSIDE RECORDS SUMMARY | 2024-07-27 16:12 | External Medical Summary | Summary of Care ---
Author Name Unknown Organization [facility] Address [address] [place] [address] Phone [phone] Care Team Providers Care General Ledger Bookkeeper Name Role Phone Melissa Bean MD Primary Care Provider Encounter Details Date Type Department Care Team (Late st Contact Info) Description 07/05/2024 Documentation Psychiatry Kalani Cadena [address] [place] [address] Renetta Cox MD [address] [place] [address] Allergies Active Allergy Reactions Criticality [...] Oral Tablet (Lipitor)Indicat ions:Coronary artery disease involving viejas coronary artery of viejas heart without angina pectoris Take 1 Tablet [...] deficiency 03/25/2022 Coronary artery disease invo lving viejas coronary artery of viejas heart without angina pectoris 03/25/2022 Rice's esophagus [...] mRNA, LNP-s, No Pre serve, 2-Dose Series ([employer]) 06/23/2021,12/10/2020,05/09/2020,04/18 Hepatitis B, 0-19 yrs 03/06/2007,10/05/2006,07/14 Pneumococcal [...] Psychiatry Kalani Cadena [address] [place] [address] Renetta Cox MD [address] [place] [address] 5 11:15 AM EDT Hospital Encounter ENDO [facility], Endoscopy Room [facility] [address] [place] [phone] Selvin Brower MD [address] [place] [address] 5 11:15 AM EDT - 5 11:45 AM EDT Surgery ENDO [facility], Endoscopy Room [facility] [address] [place] [phone] Selvin Brower MD [address] [place] [address] ESOPHAGOGASTRODUODENOSCOPY (EGD), FLEXIBLE, TRANSORAL, DIAGNOSTIC 5 2:30 PM EDT Office Visit Cardiology, [facility] [address] [place] [address] Crystal Hanna CRNP [address] [place] [address] 5 11:00 AM EDT Office Visit Dermatology [facility] [address] [place] [address] Trinh Edwards PA-C [address] [place] [address] 6 2:00 PM EDT Office Visit Hematology/Onco logy [facility] [address] [place] [address] Trinh Donahue MD [address] [place] [address] Scheduled Procedures Name Priority Associated Diagnoses Date/Ti me ESOPHAGOGASTRODUODENOSCOPY ( EGD), FLEXIBLE, TRANSORAL, DIAGNOSTIC Esophageal dysphagia 08/08/2024 11:15 AM EDT Health Maintenance Due Date Last Done Comments Rice's Esophagus Surveilance 1938 Depression Monitoring 1950 Albumin/Creatinine Ratio 1956 Zoster Vaccines (1 of 2) 1988 Adult Wellness Visit 2004 CKD PHOS USE SMARTSET 49099 05/24/2024 05/25/2023 HbA1c 05/24/2024 05/25/2023, 01/09/2019 COVID-19 Vaccine ( season) 2024 12/15/2023, 02/09/2023, 06/23/2021, Additional history exists DTap/Tdap Vaccines (2 - Td or Tdap) 04/21/2025 04/21/2015, 03/09/2005 CKD HGB USE SMARTSET 73169 06/27/202506/27, 06/27/2024, 12/30/2023, Additional history exists Hepatitis [...] filedocumented as of this encounter Care Teams General Ledger Bookkeeper Relationship Specialty Start Date End Date Melissa Bean MD [address] [facility] [place] [address] PCP - General Internal Medicine 03/25/22 documented as of this encounter
--- OUTSIDE RECORDS SUMMARY | 2024-07-27 16:12 | External Medical Summary ---
Author Name Unknown Address Unknown Organization [facility] [address] [place] [address] Laboratory Report Ordering Provider Test Date Status LIDA SEN 06/27/2024 13:23:07 Final Observation Date Value Abnormality Reference (Units ) Status SYNC LEUKOCYTES IN BLOOD BY AUTOMATED COUNT 06/27/2024 13:23:07 11.84 Above high normal 4.00-10.80 (K/uL) Final Segs 06/27/2024 13:23:07 59.9 40.0-75.0 (%) Final Lymphs % 06/27/2024 13:23:07 21.8 18.0-42.0 (%) Final Monos 06/27/2024 13:23:07 15.2 Above high normal 1.0-11.0 (%) Final Eosinophils 06/27/2024 13:23:07 2.5 0.0-6.0 (%) Final Basos 06/27/2024 13:23:07 0.6 0.0-2.0 (%) Final Absolute Segs 06/27/2024 13:23:07 7.09 1.80-7.70 (K/uL) Final Lymphs, absolute 06/27/2024 13:23:07 2.58 1.00-4.80 (K/ul) Final Monos, Abs 06/27/2024 13:23:07 1.80 Above high normal 0.00-1.10 (K/uL) Final Eos, Abs 06/27/2024 13:23:07 0.30 0.00-0.70 (K/uL) Final Basos, Abs 06/27/2024 13:23:07 0.07 0.00-0.20 (K/uL) Final Performing Location [facility] [address] [place] [address]
--- OUTSIDE RECORDS SUMMARY | 2024-07-27 16:12 | External Medical Summary | Summary of Care ---
Author Name Unknown Organization [facility] Address [address] [place] [address] Phone [phone] Care Team Providers Care Commercial Electrician Name Role Phone Melissa Bean MD Primary Care Provider Encounter Details Date Type Department Care Team (Late st Contact Info) Description 07/12/2024 Telephone Cardiology, [facility] [address] [place] [address] Crystal Hanna CRNP [address] [place] [address] Allergies Active Allergy Reactions Criticality Noted Date Comments Codeine 03/25/2022 Egg-Derived Products 03/25/2022 But no reaction to the flu vaccine. Aversion, not allergy Penicillins 03/25/2022 documented as of this encounter (statuses as of 07/12/2024) Medications Acetaminophen 325 MG Oral Tablet (Tylenol) [...] Oral Tablet (Lipitor)Indicat ions:Coronary artery disease involving north fork coronary artery of north fork heart without angina pectoris Take 1 Tablet [...] as of this encounter (statuses as of 07/12/2024) Active Problems Problem Noted Date Diagnosed Date [...] deficiency 03/25/2022 Coronary artery disease invo lving north [place] coronary artery of north fork heart without angina pectoris 03/25/2022 Rice's esophagus [...] as of this encounter (statuses as of 07/12/2024) Resolved Problems Problem Noted Date Diagnosed Date Resolved Date Prepatellar bursitis 09/09/2016 024 Semimembranosus tendinitis 08/04/2016 0 05/25/2023 documented as of this encounter (statuses as of 07/12/2024) Immunizations Name Administration Dates Next Due COVID-19 mRNA, LNP-s, No Pre serve, 2-Dose Series (Entitle) 06/23/2021,12/10/2020,05/09/2020,04/18 Hepatitis B, 0-19 yrs 03/06/2007,10/05/2006,07/14 Pneumococcal [...] encounter Miscellaneous Notes * Telephone Encounter - Tien Langford [facility] - 07/12/2024 2:51 PM EDT Spoke with pt's daughter Luciana today. Pt just had routine labs ordered yesterday to be done soon. Advised when pt had his last lipid panel done we discussed rechecking the lipid panel in a few months because pt had missed a few weeks of his atorvastatin at that time. Repeat lipids were not done yet so I advised I would reorder the lab and that he would need to fast for the lab now when he has itchecked. Daughter understands and asked that I send a CoNarrative message as well. Tien Langford, Pharm.D. Clinical Pharmacist [facility] 07/12/2024, 2:52 PM [phone] documented in this encounter Plan of Treatment Upcoming Encounters Date Type Department Care Team (Latest Contact Info) Description 5 2:30 PM EDT Telemedicine Psychiatry Kalani Cadena [address] [place] [phone] Renetta Cox MD [address] [phone] 5 11:15 AM EDT Hospital Encounter [facility]O [facility], Endoscopy Room [facility] [address] [place] [phone] Selvin Brower MD [address] [place] [address] [address] 5 11:15 AM EDT - 5 11:45 AM EDT Surgery ENDO [facility], Endoscopy Room [facility] [address] [place] [phone] Selvin Brower MD [address] [place] [id number] ESOPHAGOGASTRODUODENOSCOPY (EGD), FLEXIBLE, TRANSORAL, DIAGNOSTIC 5 2:30 PM EDT Office Visit Cardiology, [facility] [address] [place] [phone] Crystal Hanna CRNP [address] [place] [address] [place] [address] 5 11:00 AM EDT Office Visit Dermatology [facility] [address] [facility] [place] [address] Trinh Edwards PA-C [address] [facility] [place] [address] 5 12:20 PM EDT Office Visit Family Practice [facility] [address] [place] [address] Melissa Bean MD 132 [facility] [place] [address] 6 2:00 PM EDT Office Visit Hematology/Onco logy [facility] [address] [place] [phone] Trinh Donahue MD 200 [facility] [place] [address] Scheduled Orders Name Type Priority Associated Diagnoses Orde r Schedule LIPID PANEL WITH DIRECT LDL IF TG IS HIGH Lab Routine Coronary artery disease involving north fork coronary artery of north fork heart without angina pectoris Expected: 07/12/2024 (Approximate), Expires: 07/12/2025 Scheduled Procedures Name Priority Associated Diagnoses Date/Ti me ESOPHAGOGASTRODUODENOSCOPY ( EGD), FLEXIBLE, TRANSORAL, DIAGNOSTIC Esophageal dysphagia 08/08/2024 11:15 AM EDT Health Maintenance Due Date Last Done Comments Rice's Esophagus Surveilance 1938 Depression Monitoring 1950 Albumin/Creatinine Ratio 1956 Zoster Vaccines (1 of 2) 1988 Adult Wellness Visit 2004 CKD PHOS USE SMARTSET 04066 05/24/2024 05/25/2023 HbA1c 05/24/2024 05/25/2023, 01/09/2019 COVID-19 Vaccine ( season) 2024 12/15/2023, 02/09/2023, 06/23/2021, Additional history exists DTap/Tdap Vaccines (2 - Td or Tdap) 04/21/2025 04/21/2015, 03/09/2005 CKD HGB USE SMARTSET 59748 06/27/202506/27, 06/27/2024, 12/30/2023, Additional history exists Hepatitis [...] as of this encounter Visit Diagnoses Diagnosis Coronary artery disease involving north fork coronary artery of north fork heart without angina pectoris- Primary Esophageal dysphagia Dysphagia, pharyngoesophageal phase documented in this encounter Care Teams Commercial Electrician Relationship Specialty Start Date End Date Melissa Bean MD [address] [place] [address] [address] PCP - General Internal Medicine 03/25/22 documented as of this encounter
--- OUTSIDE RECORDS SUMMARY | 2024-07-27 16:12 | External Medical Summary | Summary of Care ---
Author Name Unknown Organization [facility] Address [address] [place] [address] Phone [phone] Care Team Providers Care Rn Icu Name Role Phone Melissa Bean MD Primary Care Provider Reason for Visit * Reason Onset Date Comments Order Request 07/10/2024 Lab Encounter Details Date Type Department Care Team (Late st Contact Info) Description 07/10/2024 Telephone [facility] [place] [address] [facility] [place] [phone] Order Request (Lab ) Allergies Active Allergy Reactions Criticality Noted Date Comments Codeine 03/25/2022 Egg-Derived Products 03/25/2022 But no reaction to the flu vaccine. Aversion, not allergy Penicillins 03/25/2022 documented as of this encounter (statuses as of 07/11/2024) Medications Acetaminophen 325 MG Oral Tablet (Tylenol) [...] Oral Tablet (Lipitor)Indicat ions:Coronary artery disease involving [place] coronary artery of [place] heart without angina pectoris Take 1 Tablet [...] as of this encounter (statuses as of 07/11/2024) Active Problems Problem Noted Date Diagnosed Date [...] deficiency 03/25/2022 Coronary artery disease invo lving [place] coronary artery of [place] heart without angina pectoris 03/25/2022 Rice's esophagus [...] as of this encounter (statuses as of 07/11/2024) Resolved Problems Problem Noted Date Diagnosed Date Resolved Date Prepatellar bursitis 09/09/2016 024 Semimembranosus tendinitis 08/04/2016 0 05/25/2023 documented as of this encounter (statuses as of 07/11/2024) Immunizations Name Administration Dates Next Due COVID-19 mRNA, LNP-s, No Pre serve, 2-Dose Series (CitalDoc) 06/23/2021,12/10/2020,05/09/2020,04/18 Hepatitis B, 0-19 yrs 03/06/2007,10/05/2006,07/14 Pneumococcal [...] encounter Miscellaneous Notes * Telephone Encounter - Melissa Bean MD - 07/11/2024 1:38 PM EDT CMP, CBC in June Lipids in January Due for: A1c VitD Uric acid Labs ordered, does not need to fast. * Telephone Encounter - Tamika Grimaldo [facility] - 07/10/2024 1:42 PM EDT An order was requested for this patient. Name of Requesting Provider: patient daughter Order Requested: routine labs for yearly physical Diagnosis/Reason for Request: routine If order request is for Mammogram: Is the patient having any breast symptoms? N/A Is there a chance of ? N/A Has the patient had any breast problems in the past? NA What location AND department does the patient wish to have their order completed at? [facility] Fax Number, if applicable: n/a If the caller is not a current patient, please advise the patient to call their current PCP to havethe order's prior to being seen in our office. The patient was informed that our providers would not order anything (medication, labs, etc.) prior to being seen. documented in this encounter Plan of Treatment Upcoming Encounters Date Type Department Care Team (Latest Contact Info) Description 2:30 PM EDT Telemedicine Psychiatry Kalani Cadena [address] [phone] Renetta Cox MD [address] [place] [phone] 5 11:15 AM EDT Hospital Encounter ENDO [facility], Endoscopy Room [facility] [address] [place] [phone] Selvin Brower MD [address] [place] [address] 5 11:15 AM EDT - 5 11:45 AM EDT Surgery ENDO [facility], Endoscopy Room [facility] [address] [place] [phone] Selvin Brower MD [address] [place] [address] ESOPHAGOGASTRODUODENOSCOPY (EGD), FLEXIBLE, TRANSORAL, DIAGNOSTIC 5 2:30 PM EDT Office Visit Cardiology, [facility] [address] [place] [phone] Crystal Hanna CRNP [address] [place] [address] [place] [address] 5 11:00 AM EDT Office Visit Dermatology [facility] [address] [facility] [place] [address] Trinh Edwards PA-C [address] [facility] [place] [address] 5 12:20 PM EDT Office Visit Family Practice [facility] [address] [place] [address] Melissa Bean MD [address] [place] [address] 6 2:00 PM EDT Office Visit Hematology/Onco logy [facility] [place] [address] [facility] [place] [phone] Trinh Donahue MD [address] [facility] [place] [address] Scheduled Orders Name Type Priority Associated Diagnoses Orde r Schedule HEMOGLOBIN A1C Lab Routine Prediabetes Expected: 07/11/2024, Expires: 08/10/2025 25-HYDROXY VITAMIN D Lab Routine Vitamin D deficiency Expected: 07/11/2024, Expires: 07/11/2025 URIC ACID Lab Routine Gout, unspecified cause, unspecified chronicity, unspecified site Expected: 07/11/2024 (Approximate), Expires: 07/11/2025 Scheduled Procedures Name Priority Associated Diagnoses Date/Ti me ESOPHAGOGASTRODUODENOSCOPY ( EGD), FLEXIBLE, TRANSORAL, DIAGNOSTIC Esophageal dysphagia 08/08/2024 11:15 AM EDT Health Maintenance Due Date Last Done Comments Rice's Esophagus Surveilance 1938 Depression Monitoring 1950 Albumin/Creatinine Ratio 1956 Zoster Vaccines (1 of 2) 1988 Adult Wellness Visit 2004 CKD PHOS USE SMARTSET 23436 05/24/2024 05/25/2023 HbA1c 05/24/2024 05/25/2023, 01/09/2019 COVID-19 Vaccine ( season) 2024 12/15/2023, 02/09/2023, 06/23/2021, Additional history exists DTap/Tdap Vaccines (2 - Td or Tdap) 04/21/2025 04/21/2015, 03/09/2005 CKD HGB USE SMARTSET 39974 06/27/202506/27, 06/27/2024, 12/30/2023, Additional history exists Hepatitis [...] as of this encounter Visit Diagnoses Diagnosis Prediabetes- Primary Other abnormal glucose Gout, unspecified cause, unspecified chronicity, unspecified site Vitamin D deficiency Unspecified vitamin D deficiency Esophageal dysphagia Dysphagia, pharyngoesophageal phase documented in this encounter Care Teams Rn Icu Relationship Specialty Start Date End Date Melissa Bean MD [address] [place] [address] PCP - General Internal Medicine 03/25/22 documented as of this encounter
--- OUTSIDE RECORDS SUMMARY | 2024-07-27 16:12 | External Medical Summary | Summary of Care ---
Author Name Unknown Organization [facility] Address [address] [place] [address] Phone [phone] Care Team Providers Care Animation Camera Operator Name Role Phone Melissa Bean MD Primary Care Provider Reason for Visit * Reason Comments Follow Up 6 month Encounter Details Date Type Department Care Team (Late st Contact Info) Description 07/03/2024 3:00 PM EDT Office Visit [place]ematology/[place] [facility] [place] [address] [place] [phone] Trinh Donahue MD [address] [place] [address] Hx of lymphoma* Allergies Active Allergy Reactions Criticality Noted Date Comments Codeine 03/25/2022 Egg-Derived Products 03/25/2022 But no reaction to the flu vaccine. Aversion, not allergy Penicillins 03/25/2022 documented as of this encounter (statuses as of 07/04/2024) Medications Acetaminophen 325 MG Oral Tablet (Tylenol) [...] Oral Tablet (Lipitor)Indicat ions:Coronary artery disease involving [place] coronary artery of [place] heart without angina pectoris Take 1 Tablet [...] as of this encounter (statuses as of 07/04/2024) Active Problems Problem Noted Date Diagnosed Date [...] deficiency 03/25/2022 Coronary artery disease invo lving [place] coronary artery of [place] heart without angina pectoris 03/25/2022 Rice's esophagus [...] as of this encounter (statuses as of 07/04/2024) Resolved Problems Problem Noted Date Diagnosed Date Resolved Date Prepatellar bursitis 09/09/2016 024 Semimembranosus tendinitis 08/04/2016 0 05/25/2023 documented as of this encounter (statuses as of 07/04/2024) Immunizations Name Administration Dates Next Due COVID-19 mRNA, LNP-s, No Pre serve, 2-Dose Series ([employer]) 06/23/2021,12/10/2020,05/09/2020,04/18 Hepatitis B, 0-19 yrs 03/06/2007,10/05/2006,07/14 Pneumococcal [...] on file documented as of this encounter Last Filed Vital Signs Vital Sign Reading Time Taken Comments Blood Pressure 121/75 07/03/2024 3:00 PM EDT Pulse 76 07/03/2024 3:00 PM EDT Temperature 36.5 °C (97.7 °F) 07/03/2024 3:00 PM ED T Respiratory Rate - - Oxygen Saturation 91% 07/03/2024 3:00 PM EDT Inhaled Oxygen Concentration - - Weight 95.4 kg (210 lb 4.8 oz) 07/03/2024 3:00 P M EDT Height - - Body Mass Index 34.2 08/16/2023 3:12 PM EDT documented in this encounter Progress Notes * Trinh Donahue MD - 07/03/2024 2:58 PM EDT Outpatient Consult Note Data Source: Patient, Epic record. Data Source: Patient, Epic record. 07/03/2024 2:58 PM Matthew Schaeffer PHD [id number] 83 year old Patient Encounter: HEMATOLOGY/ONCOLOGY [facility] Cancer Diagnosis: History of follicular lymphoma, Stage IIIA, FLIPI 4 Current Treatment: Observation Previous Treatment: rituximab and bendamustine, completed treatment at [facility] on 11/10/2011 Oncologic History : 83-year-old male with past medical history significant for hypertension, hyperlipidemia, coronary artery disease, history of Lyme disease in 2016, CKD and history of follicular lymphoma was referred for further follow-up. His history is also significant for melanoma resected from right cheek in 2013. He was diagnosed of follicular lymphoma in 2011 when he presented with abdominal pain. He was treated at [facility] with combination bendamustine and rituximab. Following is from [facility]: Follicular lymphoma-stage IIIA, FLIPI 4 04/25-Abd pain 05/12/11- CT A/P RP and mesenteric adenopathy. CT of chest -Retrocrural node. Mild emphysema Core needle bx/flow cytometry FL grade 1-Ki 67 30%, CD-19,20 and 10 +, Lambda restriction[place] [facility] [place]iscuss[place] Dr Rice-Path signed out as FNA but there were core biopsies) Bone marrow Bx-Neg PET scan uptake in neck nodes,thoracic node, axilla and abdomen/RP-Max SUV 8.2(at site of biopsy). LDH elevated at 260, B2 microglobulin elevated at 3.1 06/21/11- Begin Bendamustine/Rituximab-completed 11/10/11-near CT CR. 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 Denies smoking or drinking. Family history is negative for any hematologic oncology problem. Interval History: He denies any fever, night sweats, headache, dizziness, chest pain, palpitation, abdominal pain or distention, nausea, vomiting, weight loss, bleeding, bruising. LABS/IMAGING: Results for orders placed or performed in visit on 06/27/24 COMPREHENSIVE METABOLIC PANEL Result Value Ref Range BUN 30 (H) 6 - 20 mg/dL CREATININE 2.0 (H) 0.6 - 1.2 mg/dL EGFR 32 (L) >=60 mL/min SODIUM 140 135 - 146 mmol/L POTASSIUM 4.4 3.5 - 5.1 mmol/L CHLORIDE 103 98 - 107 mmol/L CO2 26 22 - 32 mmol/L ANION GAP 11 7 - 15 mmol/L GLUCOSE 108 70 - 120 mg/dL Albumin 4.1 3.8 - 5.0 g/dL AST 29 10 - 50 U/L Alkaline Phosphatase 132 (H) 35 - 130 U/L Bilirubin, Total 0.6 <=1.2 mg/dL CALCIUM 10.0 8.4 - 10.2 mg/dL Protein 6.1 6.0 - 8.3 g/dL ALT 25 10 - 50 U/L LD Result Value Ref Range LD 251 (H) <=250 U/L [id number], SERUM Result Value Ref Range B2 Microglobulin, Serum 5.51 (H) <=2.51 mg/L CBC Result Value Ref Range WBC 11.84 (H) 4.00 - 10.80 K/uL RBC 4.40 4.50 - 5.25 M/uL HGB 14.2 14.0 - 16.8 g/dL HCT 42.8 40.0 - 48.4 % MCV 97.3 82.0 - 99.5 fL MCH 32.3 27.0 - 34.0 pg MCHC 33.2 32.0 - 36.0 g/dL RDW 13.4 11.5 - 15.5 % PLT 190 140 - 400 K/uL MPV 10.3 6.6 - 11.1 fL DIFFERENTIAL, AUTOMATED Result Value Ref Range WBC 11.84 (H) 4.00 - 10.80 K/uL Neutrophils % 59.9 40.0 - 75.0 % Lymphocytes % 21.8 18.0 - 42.0 % Monocytes % 15.2 (H) 1.0 - 11.0 % Eosinophils % 2.5 0.0 - 6.0 % Basophils % 0.6 0.0 - 2.0 % Absolute Neutrophils 7.09 1.80 - 7.70 K/uL Absolute Lymphocytes 2.58 1.00 - 4.80 K/ul Absolute Monocytes 1.80 (H) 0.00 - 1.10 K/uL Absolute Eosinophils 0.30 0.00 - 0.70 K/uL Absolute Basophils 0.07 0.00 - 0.20 K/uL Result of the recent blood test done on 06/27/2024 are stable in acceptable range. REVIEW OF SYSTEMS: General: No Fever, chills, night sweats, or weight loss. HEENT: No change in visual acuity, blurred or double vision. No epistaxis, facial pain, nasal discharge or change in hearing. Denies dysphagia, no muscosal ulceration, or sores noted. Cardiovascular: No chest pain, CARNEY, or palpitations Respiratory: No shortness of breath, cough, hemoptysis, or pleuritic chest pain Gastrointestinal: No abdominal pain, nausea, vomiting, diarrhea, rectal pain or bleeding Genitourinary: Denies Hematuria or dysuria Musculoskeletal: No bone pain Psychiatric: No vegetative signs of depression Endocrine: No symptoms of hypothyroidism or hyperglycemia Hematologic: No bleeding or lymph nodes noted As mentioned above, all of the systems were reviewed in full and are unremarkable. 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 Follicular. S/p bendamustine/rituximab competed 10/2011. ROBERT as of 11/2020. Hx of malignant melanoma 03/31/2022 R cheek, 0.7mm, Solis IV. 12/2013. 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 As needed Multi-Vitamin Oral Tablet Take 1 Tablet by mouth in the morning. Vitamin D High Potency 25 MCG (1000 UT) Oral Capsule (Cholecalciferol) Take 1 Capsule by mouth in the morning. LORazepam 1 MG Oral Tablet (Ativan) Take one pill 1 hour before MRI. Can take a second pill 30-60 min if needed. This may make you unsteady on your feet, so make sure you have someone to help you walk. 5 Tablet 0 Atorvastatin Calcium 40 MG Oral Tablet (Lipitor) Take 1 Tablet by mouth in the morning. 90 Tablet 3 Metoprolol Succinate ER 25 MG Oral Tablet Extended Release 24 Hour (toPROL XL) TAKE 1 TABLET BY MOUTH EVERY MORNING 90 Tablet 0 FLUoxetine HCl 40 MG Oral Capsule (PROzac) Take 60 mg (one 40 mg pill and one 20 mg pill) every morning. 90 Capsule 3 FLUoxetine HCl 20 MG Oral Capsule (PROzac) Take 60 mg (one 40 mg pill and one 20 mg pill) every morning. 90 Capsule 3 No current facility-administered medications for this visit. Social History Tobacco Use Smoking status: Never Smokeless tobacco: Never Vaping Use Vaping status: Never Used Substance Use Topics Alcohol use: Yes Comment: 1-2 glasses of wine/month Drug use: Never Review of patient's allergies indicates: Allergen Reactions Codeine Egg-Derived Products But no reaction to the flu vaccine. Aversion, not allergy Penicillins PHYSICAL EXAMINATION: General Appearance: Healthy appearing patient in no acute distress There were no vitals taken for this visit. Vitals reviewed. HEENT: No oral or pharyngeal masses, ulceration or thrush noted, no sinus tenderness. Neck is supple with no thyromegaly or JVD noted. Lymph Nodes: No lymphadenopathy noted in the occipital, pre and post auricular, cervical, supra andinfraclavicular, axillary, epitrochlear, inguinal, and popliteal region. Lungs/Thorax: Clear to auscultation, no accessory muscles of respiration being used. Heart: Regular rate and rhythm, normal S1, S2 Abdomen: Soft, nontender, bowel sounds present, no appreciable hepatosplenomegaly, no palpable masses Extremeties: Good pulses bilaterally, no peripheral edema. ASSESSMENT: 83-year-old male with past medical history significant for hypertension, hyperlipidemia, coronary artery disease, history of Lyme disease in 2016, CKD and history of follicular lymphoma was referred for further follow-up. He was diagnosed of follicular lymphoma in 2011 and was treated at [facility] with combination of rituximab and bendamustine and achieved complete remission. Completed treatment on 11/10/2011. His history is also significant for the resection of melanoma from the right cheek area. As far as lymphoma is concerned, clinically he is doing well without any new symptoms complain. Result of the recent blood tests are stable in acceptable range. On physical examination there is no palpable lymph nodes or organomegaly. Discussed with the patient about diagnosis and reviewed all the available blood test result with him. He will continue follow his PCP and wants to return once a year. PLAN: Return clinic in 1 year with CBC, CMP and LDH. He will continue follow his PCP for all other medical problems. The patient voiced understanding of all of the above. All questions and concerns were addressed in an apparently satisfactory manner. Trinh Donahue MD (This note was completed using the dictation program Fluency Direct. As such, there may be misspellings, word substitutions, or other variations that should not change the essence of the clinical content of this encounter note. If there is need for further clarification, please direct questions to me.) documented in this encounter Nursing Notes * Danielle Mcfadden MED ASSIST - 07/03/2024 3:03 PM EDT Patient identifed by name and birthdate Do you have any concerns about pain management for today's visit? Yes. Patient instructed to discuss pain concerns with provider during the visit today Living Will or Advance Directive for Health Care as noted on the problem list. [facility] is a way you can talk to your provider on line through e-mail. Would you like to sign up? I can activate it for you? ALREADY ACTIVE Filed Vitals: 07/03/24 1500 BP: 121/75 Pulse: 76 Temp: 36.5 °C (97.7 °F) TempSrc: Tympanic SpO2: 91% Weight: 95.4 kg (210 lb 4.8 oz) Patient was instructed to not get up on the exam table/exam chair until directed and assisted by their provider; patient is to remain seated in the chair/ wheelchair/ exam table/ exam chair for fall prevention and safety reasons. Patient is aware to have assistance to step down off exam table/exam chair with personnel. Patient voiced full comprehension of instructions. Pt is very hard of hearing. Pts had to answer most questions documented in this encounter Plan of Treatment Upcoming Encounters Date Type Department Care Team (Latest Contact Info) Description 5 2:30 PM EDT Telemedicine Psychiatry Kalani Cadena [address] [place] [phone] Renetta Cox MD [address] [place] [phone] 5 11:15 AM EDT Hospital Encounter ENDO [facility], Endoscopy Room [facility] [address] [place] [phone] Selvin Brower MD [address] [place] [address] 5 11:15 AM EDT - 5 11:45 AM EDT Surgery ENDO [facility], Endoscopy Room [facility] [address] [place] [phone] Selvin Brower MD [address] [place] [phone] ESOPHAGOGASTRODUODENOSCOPY (EGD), FLEXIBLE, TRANSORAL, DIAGNOSTIC 5 2:30 PM EDT Office Visit Cardiology, [facility] [address] [place] [phone] Crystal Hanna CRNP [address] [place] [address] [place] [address] 5 11:00 AM EDT Office Visit Dermatology [facility] [address] [place] [address] Trinh Edwards PA-C [address] [place] [address] 6 2:00 PM EDT Office Visit Hematology/Onco logy [facility] [address] [place] [phone] Trinh Donahue MD [address] [place] [address] Scheduled Orders Name Type Priority Associated Diagnoses Orde r Schedule CBC WITH WBC DIFFERENTIAL Lab Routine Hx of lymphoma Expected: 06/25/2025, Expires: 08/02/2025 COMPREHENSIVE METABOLIC PANEL Lab Routine Hx of lymphoma Expected: 06/25/2025, Expires: 08/02/2025 LD Lab Routine Hx of lymphoma Expected: 06/25/2025, Expires: 08/02/2025 Scheduled Procedures Name Priority Associated Diagnoses Date/Ti me ESOPHAGOGASTRODUODENOSCOPY ( EGD), FLEXIBLE, TRANSORAL, DIAGNOSTIC Esophageal dysphagia 08/08/2024 11:15 AM EDT Health Maintenance Due Date Last Done Comments Rice's Esophagus Surveilance 1938 Depression Monitoring 1950 Albumin/Creatinine Ratio 1956 Zoster Vaccines (1 of 2) 1988 Adult Wellness Visit 2004 CKD PHOS USE SMARTSET 37789 05/24/2024 05/25/2023 HbA1c 05/24/2024 05/25/2023, 01/09/2019 COVID-19 Vaccine ( season) 2024 12/15/2023, 02/09/2023, 06/23/2021, Additional history exists DTap/Tdap Vaccines (2 - Td or Tdap) 04/21/2025 04/21/2015, 03/09/2005 CKD HGB USE SMARTSET 98863 06/27/202506/27, 06/27/2024, 12/30/2023, Additional history exists Hepatitis [...] as of this encounter Visit Diagnoses Diagnosis Hx of lymphoma- Primary Personal history of other lymphatic and hematopoietic neoplasm Esophageal dysphagia Dysphagia, pharyngoesophageal phase documented in this encounter Care Teams Animation Camera Operator Relationship Specialty Start Date End Date Melissa Bean MD [address] [place] [address] PCP - General Internal Medicine 03/25/22 documented as of this encounter
--- OUTSIDE RECORDS SUMMARY | 2024-07-27 16:13 | External Medical Summary | Summary of Care ---
Author Name Unknown Organization [facility] Address [address] [place] [facility] [place] [address] Phone [phone] Care Team Providers Care Fire Inspector Name Role Phone Melissa Bean MD Primary Care Provider Encounter Details Date Type Department Care Team (Late st Contact Info) Description 04/05/2024 Population Health External Data Unspecified Department Allergies Active Allergy Reactions Criticality Noted Date Comments Codeine 03/25/2022 Egg-Derived Products 03/25/2022 But no reaction to the flu vaccine. Aversion, not allergy Penicillins 03/25/2022 documented as of this encounter (statuses as of 04/05/2024) Medications Acetaminophen 325 MG Oral Tablet (Tylenol) Take 2 Tablets by mouth. As needed Active Multi-Vitamin Oral Tablet Take 1 Tablet by mouth in the morning. Active Vitamin D High Potency 25 MCG (1000 UT) Oral Capsule (Cholecalciferol ) Take 1 Capsule by mouth in the morning. Active Metoprolol Succinate ER 25 MG Oral Tablet Extended Release 24 Hour (toPROL XL)Indications:E ssential hypertension,PVC (premature ventricular contraction) take 1 tablet by mouth every morning 90 Tablet 3 4 Active LORazepam 1 MG Oral Tablet (Ativan) Take one pill 1 hour before MRI. Can take a second pill 30-60 min if needed. This may make you unsteady on your feet, so make sure you have someone to help you walk. 5 Tablet 4 Active Atorvastatin Calcium 40 MG Oral Tablet (Lipitor) Take 1 Tablet by mouth in the morning. 100 Tablet 4 Active FLUoxetine HCl 40 MG Oral Capsule (PROzac) Take 60 mg (one 40 mg pill and one 20 mg pill) every morning. 90 Capsule 1 5 Active FLUoxetine HCl 20 MG Oral Capsule (PROzac) Take 60 mg (one 40 mg pill and one 20 mg pill) every morning. 90 Capsule 1 5 Active documented as of this encounter (statuses as of 04/05/2024) Active Problems Problem Noted Date Diagnosed Date [...] deficiency 03/25/2022 Coronary artery disease invo lving [place] coronary artery of [place] heart without angina pectoris 03/25/2022 Rice's esophagus [...] as of this encounter (statuses as of 04/05/2024) Resolved Problems Problem Noted Date Diagnosed Date Resolved Date Prepatellar bursitis 09/09/2016 024 Semimembranosus tendinitis 08/04/2016 0 05/25/2023 documented as of this encounter (statuses as of 04/05/2024) Immunizations Name Administration Dates Next Due COVID-19 mRNA, LNP-s, No Pre serve, 2-Dose Series ([employer]) 06/23/2021,12/10/2020,05/09/2020,04/18 Hepatitis B, 0-19 yrs 03/06/2007,10/05/2006,07/14 Pneumococcal [...] ages 0-17 years) Not on file 03/26/2024 Sex and Gender Information Value Date Recorded Sex Assigned at Not on file Legal Sex Male 9:12 AM EDT Gender Identity Not on file Sexual Orientation Not on file documented as of this encounter Plan of Treatment Upcoming Encounters Date Type Department Care Team (Latest Contact Info) Description 5 1:00 PM EST Telemedicine Psychiatry Kalani Cadena [address] [place] [phone] Renetta Cox MD [address] [place] [phone] 5 1:00 PM EDT Laboratory Laboratory, [address] [place] [phone] FriasHema montiel [address] [place] [address] 5 3:00 PM EDT Office Visit Hematology/Onco logy [facility] [place] [address] [place] [phone] Trinh Donahue MD [address] [place] [address] 5 11:15 AM EDT Hospital Encounter ENDO [facility], Endoscopy Room [facility] [address] [place] [phone] Selvin Brower MD [address] [place] [address] 5 11:15 AM EDT - 5 11:45 AM EDT Surgery ENDO [facility], Endoscopy Room [facility] [address] [place] [phone] Selvin Brower MD [address] [place] [address] ESOPHAGOGASTRODUODENOSCOPY (EGD), FLEXIBLE, TRANSORAL, DIAGNOSTIC 5 2:30 PM EDT Office Visit Cardiology, [facility] [address] [place] [address] Crystal Hanna CRNP [address] [place] [address] [place] [address] 5 11:00 AM EDT Office Visit Dermatology [facility] [place] [address] [place] [address] Trinh Edwards PA-C [address] [place] [address] Scheduled Procedures Name Priority Associated Diagnoses Date/Ti me ESOPHAGOGASTRODUODENOSCOPY ( EGD), FLEXIBLE, TRANSORAL, DIAGNOSTIC Esophageal dysphagia 08/08/2024 11:15 AM EDT Health Maintenance Due Date Last Done Comments Rice's Esophagus Surveilance 1938 Albumin/Creatinine Ratio 1956 Zoster Vaccines (1 of 2) 1988 Adult Wellness Visit 2004 Depression Monitoring 06/24/2023 06/23/2022 CKD PHOS USE SMARTSET 28003 05/24/2024 05/25/2023 HbA1c 05/24/2024 05/25/2023, 01/09/2019 CKD HGB USE SMARTSET 41364 12/29/202412/29, 12/30/2023, 06/24/2023, Additional history exists DTap/Tdap Vaccines (2 - Td or Tdap) 04/21/2025 04/21/2015, 03/09/2005 Hepatitis B Vaccine Aged Out 03/06/2007, 10/05/2006, 08/10/2006 No longer eligible based on patient's age to complete this topic Pneumococcal Vaccine: 50+ Years Completed 12/08/2020, 03/03/2015, 03/14/2002 COVID-19 Vaccine Completed 12/15/2023, , 06/23/2021, Additional history exists Influenza Vaccine (FLU shot) Completed 05/2023, 12/24/2022, 12/24/2022, Additional history exists HPV (Gardasil) Vaccine Aged Out No lo nger eligible based on patient's age to complete this topic MENINGOCOCCAL (MENACTRA/MENVEO) Aged Out No longer eligible based on patient's age to complete this topic documented as of this encounter Medical Devices Not on filedocumented as of this encounter Care Teams Fire Inspector Relationship Specialty Start Date End Date Melissa Bean MD [address] [place] [address] PCP - General Internal Medicine 03/25/22 documented as of this encounter
--- OUTSIDE RECORDS SUMMARY | 2024-07-27 16:13 | External Medical Summary | Summary of Care ---
Author Name Unknown Organization [facility] Address [address] [place] [address] Phone [phone] Care Team Providers Care Boat Deckhand Name Role Phone Ming Bean MD Primary Care Provider Encounter Details Date Type Department Care Team (Latest Contact Info) Description 05/14/2024 1:00 PM EST Telemedicine Psychiatry Kalani Cadena [address] [place] [address] Renetta Cox MD [address] [place] [address] Major depressive disorder, recurrent episode, mild (HCC)*; Alzheimer's disease (HCC); Prolonged posttraumatic stress disorder Allergies Active Allergy Reactions Criticality Noted Date Comments Codeine 03/25/2022 Egg-Derived Products 03/25/2022 But no reaction to the flu vaccine. Aversion, not allergy Penicillins 03/25/2022 documented as of this encounter (statuses as of 05/16/2024) Medications Acetaminophen 325 MG Oral Tablet (Tylenol) Take 2 Tablets by mouth. As needed Active Multi-Vitamin Oral Tablet Take 1 Tablet by mouth in the morning. Active Vitamin D High Potency 25 MCG (1000 UT) Oral Capsule (Cholecalcifero l) Take 1 Capsule by mouth in the morning. Active Metoprolol Succinate ER 25 MG Oral Tablet Extended Release 24 Hour (toPROL XL)Indications: Essential hypertension,PV C (premature ventricular contraction) take 1 tablet by mouth every morning 90 Tablet 3 04/20/19 24 Active LORazepam 1 MG Oral Tablet (Ativan) Take one pill 1 hour before MRI. Can take a second pill 30-60 min if needed. This may make you unsteady on your feet, so make sure you have someone to help you walk. 5 Tablet 06/13/19 24 Active Atorvastatin Calcium 40 MG Oral Tablet (Lipitor)Indica tions:Coronary artery disease involving [place] coronary artery of [place] heart without angina pectoris Take 1 Tablet by mouth in the morning. 90 Tablet 3 05/09/19 25 Active FLUoxetine HCl 40 MG Oral Capsule (PROzac) Take 80 mg (2 pills) every morning. 180 Capsule 3 05/17/19 25 Active FLUoxetine HCl 40 MG Oral Capsule (PROzac) Take 60 mg (one 40 mg pill and one 20 mg pill) every morning. 90 Capsule 1 03/28/19 25 025 Discontinued(Re fill) FLUoxetine HCl 20 MG Oral Capsule (PROzac) Take 60 mg (one 40 mg pill and one 20 mg pill) every morning. 90 Capsule 1 03/28/19 25 025 Discontinued FLUoxetine HCl 40 MG Oral Capsule (PROzac) Take 80 mg (2 pills) every morning. 180 Capsule 1 05/17/19 25 025 Discontinued(Re fill) documented as of this encounter (statuses as of 05/16/2024) Active Problems Problem Noted Date Diagnosed Date [...] deficiency 03/25/2022 Coronary artery disease invo lving [place] coronary artery of [place] heart without angina pectoris 03/25/2022 Rice's [...] as of this encounter (statuses as of 05/16/2024) Resolved Problems Problem Noted Date Diagnosed Date Resolved Date Prepatellar bursitis 09/09/2016 024 Semimembranosus tendinitis 08/04/2016 0 05/25/2023 documented as of this encounter (statuses as of 05/16/2024) Immunizations Name Administration Dates Next Due COVID-19 mRNA, LNP-s, No Pre serve, 2-Dose Series ([employer] 06/23/2021,12/10/2020,05/09/2020,04/18 Hepatitis B, 0-19 yrs 03/06/2007,10/05/2006,07/14 [...] * Patient Instructions* Renetta Cox MD - 05/15/2024 10:56 PM EST Increase Prozac (fluoxetine) to 80 mg (2 pills) every morning. Follow-up with me on--Mon 06/18/24 at 1: 30pm --Call the clinic at [phone] or [employer] message me if you have any problems or questions, or you need to be seen sooner documented in this encounter Progress Notes * Renetta Cox MD - 05/15/2024 11:03 PM EST Images from the original note were not included. Patient location: HOME. I was not in a hospital or clinic location. After connecting through [employer], patient was verified with two unique identifiers. Patient (or authorized legal goodwill representative) was then informed that this was a Telemedicine visit and being conducted confidentially over secure lines. Methods to assure confidentiality were taken. Patient acknowledged consent and understanding of privacy and security of the Telemedicine visit. The patient agreed to participate. Psychiatric Follow-Up Visit CC: MDD, mixed AD/VasD, probable PTSD INTERVAL HISTORY: The patient is a 83 year old man seen today for follow-up of: MDD, recurrent Mixed AD/vascular dementia Probable PTSD. He was last seen in clinic on 03/26/2024. At that visit: --Fluoxetine was continued Seen today with and daughter, who provide most of the history. Overall, how doing since last visit: bad, worse Has severe hypersomnia, sleeping almost all of the day as well as at night. Patient describes mood as: 'good'. Current symptoms, problems, and functioning: Low mood: Has told his he feels very depressed every night, and wonders if he will ever get better; however patient endorses only transient low mood (<10% of the time) and tells me he feels fine. Family feels this is worse over past few months, “it feels like he's going away”. Anhedonia: no Amotivation: yes Sleep: Hypersomnia; family thinks worse depression is making him have more hypersomnia Energy: decreased Appetite: fine Level of participation in activities: decreased Suicidal ideation/passive wish to : PWD: no [...] yourself, tried to hang yourself, etc. x HOME MEDICATIONS: Fluoxetine 60 mg qam (started 2018, last increased 07/18/2023): helps Vitamin D 25 mcg qday Metoprolol ER 25 qday Atorvastatin 40 mg qday MVI qday ALLERGIES: Review of patient's allergies indicates: Allergen Reactions Codeine Egg-Derived Products But no reaction to the flu vaccine. Aversion, not allergy Penicillins REVIEW OF SYSTEMS: Review of systems including cardiac, pulmonary, constitutional, dermatologic, rheumatologic, GI, , MSK, psychiatric, and neurologic systems was negative except as in HPI VITAL SIGNS: HR: BP: RR: SaO2: T: Weight: BMI: 03/27/24 68 01/03/24 83 08/16/23 57 06/27/23 75 03/27/24 124/72 01/19/24 122/68 01/03/24 123/70 08/16/23 118/70 03/27/24 16 08/16/23 16 06/27/23 18 12/24/22 20 01/19/24 36.5 °C (97.7 °F) 01/03/24 36.4 °C (97.5 °F) 08/16/23 36.9 °C (98.4 °F) 06/27/23 36.4 °C (97.5 °F) 03/27/24 95.3 kg (210 lb) 01/19/24 94.8 kg (209 lb) 01/03/24 95.2 kg (209 lb 14.4 oz) 08/16/23 97.1 kg (214 lb) 03/27/24 34.15 kg/m² 01/19/24 33.99 kg/m² 01/03/24 34.14 kg/m² 08/16/23 34.80 kg/m² MENTAL STATUS EXAM: Overall: NAD Alertness: alert and awake Eye contact: good Cooperation / participation: good Fluency: language fluent Comprehension: intact Conversation: appropriate Psychomotor activity: normal, calm Thought process: logical and linear Associations: intact Thought Content: PWD: no SI: no HI: none Hallucinations: none Delusions: none Mood: 'good' Affect: full and mood-congruent Speech: rate normal, rhythm normal, volume normal, articulation normal Insight: fair to poor Judgement: fair Abnormal movements: none IMPRESSION: The patient is a 83 year old right-handed man with: MDD, recurrent, in full remission Mixed AD/vascular dementia Probable PTSD He had [...] 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 Prior to the dementia he would [...] a day is ok from their perspective. At today's visit 05/14/2024, family reports patient seems to be more depressed lately and that this may be driving a lot of the hypersomnia. Will work to optimize depression treatment. He would benefit from: --Medication optimization --Continuing [...] --Avoiding qt-prolonging medications PLAN: Dementia, MDD, PTSD: --Increase fluoxetine to 80 mg qam. --Neuropsychological testing 10/12/22 showed: “Attention/working memory was [...] ability was within expectation.” --Past medication trials: Hamel: took prescribed and “self-medicated” (for depression, not [...] --Explore more at future visit Labs: --CBC 12/30/23: WNL --BMP 12/30/23: eGFR low at 34; CREATININE high at 1.9; BUN high at 24; otherwise WNL --BMP 06/24/23: eGFR low at 34, stable; Creatinine high at 1.9, stable; BUN high at 29, stable; otherwise WNL --LFTs 12/30/23: WNL --TSH 06/24/23: high at 5.17 --TSH [...] 60% --Lyme Disease Antibody Screen 11/25/22: negative --Lipids 01/31/24: LDL 123; HDL low at 39; Tg high at 205 --Hemoglobin A1C 05/25/23: 5.8 --EKG 03/27/24 : QTc severely prolonged at 493 ms --EKG 05/25/23: QTc 497 ms Care coordination: --Daughter Luciana Nowak is main point of contact, her number is in the chart --/patient's number: [phone] Insurance issues: --No issues with copay/deductibles Safety/crisis planning: --Reviewed safety/crisis planning F/u: --Mon 06/18/24 at 1: 30pm Outpatient Adult Psychiatry Treatment Plan for visit 05/14/2024 Treatment plan was developed on 03/26/2024, treatment will continue to focus on goals there. Treatment update will occur when clinically indicated or by 09/22/2024. Crisis plan developed on 03/26/2024; see note of that date for details. --------- PHQ-9/KEYONA-7: Labs/Outcomes No data to display No questionnaires available. Vital Signs: HR: BP: RR: T: Weight: BMI: Pulse 03/27/24 68 01/03/24 83 08/16/23 57 06/27/23 75 BP Readings from Last 4 Encounters: 03/27/24 124/72 01/19/24 122/68 01/03/24 123/70 08/16/23 118/70 Resp Readings from Last 4 Encounters: 03/27/24 16 08/16/23 16 06/27/23 18 12/24/22 20 Temp Readings from Last 4 Encounters: 01/19/24 36.5 °C (97.7 °F) 01/03/24 36.4 °C (97.5 °F) (Oral) 08/16/23 36.9 °C (98.4 °F) (Tympanic) 06/27/23 36.4 °C (97.5 °F) (Tympanic) Wt Readings from Last 4 Encounters: 03/27/24 95.3 kg (210 lb) 01/19/24 94.8 kg (209 lb) 01/03/24 95.2 kg (209 lb 14.4 oz) 08/16/23 97.1 kg (214 lb) BMI Readings from Last 4 Encounters: 03/27/24 34.15 kg/m² 01/19/24 33.99 kg/m² 01/03/24 34.14 kg/m² 08/16/23 34.80 kg/m² Pharmacy: [id number] [address] [facility] PCP: MING BEAN [address] [address] [phone] ICD-10 Diagnoses for visit 05/14/2024: Major depressive disorder, recurrent episode, mild (HCC) Orders placed for visit 05/14/2024: Plan FLUoxetine HCl 40 MG Oral Capsule (PROzac) Next visit: 06/18/2024 documented in this encounter Plan of Treatment Upcoming Encounters Date Type Department Care Team (Latest Contact Info) Description 1:30 PM EDT Telemedicine Psychiatry Kalani Cadena [address] [address] Renetta Cox MD [address] [address] 5 1:00 PM EDT Laboratory Laboratory, [facility] [address] [place] [phone] [facility] [address] [facility] [place], [place] [address] 5 3:00 PM EDT Office Visit Hematology/Onco logy [facility] [address] [place] [address] Trinh Donahue MD [address] [place] [address] 5 11:15 AM EDT Hospital Encounter ENDO OSS, Endoscopy Room [facility] [address] [place] [phone] Selvin Brower MD [address] [place] [address] 5 11:15 AM EDT - 5 11:45 AM EDT Surgery ENDO OSS, Endoscopy Room [facility] [address] [place] [phone] Selvin Brower MD [address] [place] [address] ESOPHAGOGASTRODUODENOSCOPY (EGD), FLEXIBLE, TRANSORAL, DIAGNOSTIC 5 2:30 PM EDT Office Visit Cardiology, [facility] [address] [place] [address] Crystal Hanna CRNP [address] [place], [place] [address] [address] 11:00 AM EDT Office Visit Dermatology Joaquin Montenegro [place] [address] [facility] [place] [address] Trinh Edwards PA-C [address] [facility] [place] [address] Scheduled Procedures Name Priority Associated Diagnoses Date/Ti me ESOPHAGOGASTRODUODENOSCOPY ( EGD), FLEXIBLE, TRANSORAL, DIAGNOSTIC Esophageal dysphagia 08/08/2024 11:15 AM EDT Health Maintenance Due Date Last Done Comments Rice's Esophagus Surveilance 1938 Albumin/Creatinine Ratio 1956 Zoster Vaccines (1 of 2) 1988 Adult Wellness Visit 2004 Depression Monitoring 06/24/2023 06/23/2022 CKD PHOS USE SMARTSET 56642 05/24/2024 05/25/2023 HbA1c 05/24/2024 05/25/2023, 01/09/2019 COVID-19 Vaccine ( season) 2024 12/15/2023, 02/09/2023, 06/23/2021, Additional history exists CKD HGB USE SMARTSET 16936 12/29/202412/29, 12/30/2023, 06/24/2023, Additional history exists DTap/Tdap [...] Diagnoses Diagnosis Major depressive disorder, recurrent episode, mild (HCC)- Primary Major depressive disorder, recurrent episode, mild Alzheimer's disease (HCC) Alzheimer's disease Prolonged posttraumatic stress disorder Posttraumatic stress disorder Esophageal dysphagia Dysphagia, pharyngoesophageal phase documented in this encounter Care Teams Boat Deckhand Relationship Specialty Start Date End Date Ming Bean MD [address] [place] [address] PCP - General Internal Medicine 03/25/22 documented as of this encounter
--- OUTSIDE RECORDS SUMMARY | 2024-07-27 16:13 | External Medical Summary | Summary of Care ---
Author Name Unknown Organization [facility] Address [address] [facility] [address] Phone [phone] Care Team Providers Care Client Liaison Name Role Phone Melissa Bean MD Primary Care Provider Reason for Visit * Reason Onset Date Comments Medication Refill 01/15/2024 Encounter Details Date Type Department Care Team (Late st Contact Info) Description 01/15/2024 [facility] [address] [facility] [address] Coby Burdick CRNP [address] [facility] [address] Coronary artery disease involving modoc coronary artery of modoc heart without angina pectoris* Allergies Active Allergy Reactions Criticality Noted Date Comments Codeine 03/25/2022 Egg-Derived Products 03/25/2022 But no reaction to the flu vaccine. Aversion, not allergy Penicillins 03/25/2022 documented as of this encounter (statuses as of 02/08/2024) Medications Acetaminophen 325 MG Oral Tablet (Tylenol) [...] in the morning. 100 Tablet 4 Active Atorvastatin Calcium 40 MG Oral Tablet (Lipitor) Take 1 Tablet by mouth in the morning. 100 Tablet 3 3 01/15/20 24 Discontinu ed(Refill) FLUoxetine HCl 40 MG Oral Capsule (PROzac) Take 60 mg (one 40 mg pill and one 20 mg pill) every morning. 90 Capsule 1 4 02/01/20 24 Discontinu ed(Refill) FLUoxetine HCl 20 MG Oral Capsule (PROzac) Take 60 mg (one 40 mg pill and one 20 mg pill) every morning. 90 Capsule 1 4 02/01/20 24 Discontinu ed(Refill) documented as of this encounter (statuses as of 02/08/2024) Active Problems Problem Noted Date Diagnosed Date [...] deficiency 03/25/2022 Coronary artery disease invo lving modoc coronary artery of modoc heart without angina pectoris 03/25/2022 Rice's esophagus [...] as of this encounter (statuses as of 02/08/2024) Resolved Problems Problem Noted Date Diagnosed Date Resolved Date Prepatellar bursitis 09/09/2016 024 Semimembranosus tendinitis 08/04/2016 0 05/25/2023 documented as of this encounter (statuses as of 02/08/2024) Immunizations Name Administration Dates Next Due COVID-19 mRNA, LNP-s, No Pre serve, 2-Dose Series (K[place]kura) 06/23/2021,12/10/2020,05/09/2020,04/18 Hepatitis B, 0-19 yrs 03/06/2007,10/05/2006,07/14 Pneumococcal [...] the money to buy more. Never true 08/22/19 24 Within the past 12 months, t he food you bought just didn't last and you didn't have money to get more. Never true 08/22/2023 Childcare Answer Date Recorded Do you feel overwhelmed with taking care of a child, family member or friend? No 08/22/2023 Does your family need help f inding childcare? (Household - for ages 0-17 years) Not on file 08/22/2023 Clothing Answer Date Recorded Have you been unable to get clothing when it was really needed? No 08/22/2023 Is your family able to get c lothes or diapers when needed? (Household - for ages 0-17 years) Not on file 08/22/2023 Personal Safety Answer Date Recorded Do you feel unsafe or have concerns for your saf ety? No 08/22/2023 Do you have concerns for you r family's safety? (Household - for ages 0-17 years) Not on file 08/22/2023 Utilities Answer Date Recorded Do you have trouble paying y our heating, water, or electric bill? No 08/22/2023 Is your family able to pay t he heat, water, or electric bill? (Household - for ages 0-17 years) Not on file 08/22/2023 Does your family have access to good internet? (Household - for ages 0-17 years) Not on file 08/22/2023 Employment Status Answer Date Recorded Are you unemployed or without regular income? No 08/22/2023 Does the household have a re gular source of income? (Household - for ages 0-17 years) Not on file 08/22/2023 Social Connections Answer Date Recorded How often do you feel lonely or isolated from ose around you? Rarely 08/22/2023 Financial Resource Strain Answer Date R ecorded Do you have any trouble payi ng for your medications, or do you think you might in the future? No 08/22/2023 Does your family have troubl e paying for medicine? (Household - for ages 0-17 years) Not on file 08/22/2023 Transportation Needs Answer Date Record ed READ ONLY Do you have troubl e getting a ride to medical visits or work? Never True 08/22/2023 Does your family have a hard time getting a ride to doctors visits? (Household - for ages 0-17 years) Not on file 08/22/2023 Has lack of transportation k ept you from medical appointments, meetings, work, or from getting things needed for daily living? Check all that apply. (Adult - for ages 18 years and over) Not on file 08/22/2023 Do you (or your family) have trouble finding or paying for a ride (transportation)? (Household - for ages 0-17 years) Not on file 08/22/2023 Housing Stability Answer Date Recorded Do you currently live in a s helter or have no steady place to sleep at night? Yes 08/22/2023 READ ONLY Do you think you a re at risk of becoming homeless? No 08/22/2023 Does your family worry about paying for your home or becoming homeless? (Household - for ages 0-17 years) Not on file 0 08/22/2023 Are you homeless or worried that you might be in the future? (Adult - for ages 18 years and over) Not on file Are you (or your family) pao eless or worried that you might be in the future? (Household - for ages 0-17 years) Not on file Food Insecurity Answer Date Recorded Do you need food for this week? No 08/22/2023 Are you able to get enough f ood for your family? (Household - for ages 0-17 years) Not on file 08/22/2023 Does your family need food t his week? (Household - for ages 0-17 years) Not on file 08/22/2023 Do you always have enough fo od for your family? (Household - for ages 0-17 years) Not on file 08/22/2023 Sex and Gender Information Value Date Recorded Sex Assigned at Not on file Legal Sex Male 9:12 AM EDT Gender Identity Not on file Sexual Orientation Not on file documented as of this encounter Miscellaneous Notes * Telephone Encounter - Kennedi Chahal CMA - 02/08/2024 9:39 AM EST Patient's daughter calling in today regarding Atorvastatin refill. Was never told this medication was refilled. Given a 90-day supply to get them to next appt with Eddie Hanna. Will need refillsat the time of appt. * Telephone Encounter - Norma Esparza DO - 01/17/2024 7:57 PM EST Signed Prescriptions: Disp Refills Atorvastatin Calcium 40 MG Oral Tablet (Li*100 Ta*0 Sig: Take 1 Tablet by mouth in the morning.Authorizing Provider: EDDIE HANNA * Telephone Encounter - Eddie Hanna CRNP - 01/17/2024 3:27 PM ESTSigned Prescriptions: Disp Refills Atorvastatin Calcium 40 MG Oral Tablet (Li*100 Ta*0 Sig: Take 1 Tablet by mouth in the morning. Authorizing Provider: EDDIE HANNA * Telephone Encounter - Renetta Austin CPhT - 01/17/2024 2:31 PM EST Incoming call from patient' s daughter, patient scheduled for 03/23/2024 follow up and will completelabs (fasting instructions given) ayaka. Requesting refill sent ayaka to pharmacy. Inquiring if there may be an issue if patient misses a few doses until refill has been sent? Thank You, Renetta Austin [facility] Tank Operator III [facility] * Telephone Encounter - Tiffany Myles secondary market manager - 01/17/2024 12:32 PM ESTPending Prescriptions: Disp Refills Atorvastatin Calcium 40 MG Oral Tablet (Li*100 Ta*0 Sig: Take 1 Tablet by mouth in the morning. * Telephone Encounter - Tiffany Myles, secondary market manager - 01/17/2024 12:31 PM EST Received message from [facility] regarding patient needing an appointment and labs. Call Placed, Pt was agreeable to set up appointment but did not want to schedule at this time. Patient advised they will call back to set up appointment. Thank you, Tiffany Myles Tank Operator [facility] 01/17/2024, 12:31 PM * Telephone Encounter - Tien Langford RP - 01/16/2024 3:17 PM ESTPending Prescriptions: Disp Refills Atorvastatin Calcium 40 MG Oral Tablet (Li*100 Ta*0 Sig: Take 1 Tablet by mouth in the morning. * Telephone Encounter - Tien Langford RPh - 01/16/2024 3:07 PM EST Unable to authorize medication refills for pended medication(s) at this time. Part of the protocol criteria used for refill authorization was not satisfied. Per refill protocol patient should have lipid panel and office visit on file within past year. Lab orders placed. Please contact patient to schedule office visit with CARDIOLOGY and advise of labs ordered for blood draw.. Recommend patient to fast if able for labs. Patient may still have water and regular medications. Advise to obtain labs before requesting the next refill. Last Visit: 04/30/2022 (in office), Visit date not found (telemedicine) Next Visit: Visit date not found After contacting patient, please forward request to Dr. Norma Esparza (pt has only seen EP in the past) (unless pt schedules with a new provider, route to new provider). Tien Langford, Pharm.D. Clinical Pharmacist [facility]) 01/16/2024, 3:14 PM [phone] documented in this encounter Plan of Treatment Upcoming Encounters Date Type Department Care Team (Latest Contact Info) Description 10:45 AM EST Hospital Encounter ENDO [facility], Endoscopy Room [facility] [address] [place] [phone] Selvin Brower MD [address] [place] [id number] 4 10:45 AM EST - 4 11:15 AM EST Surgery ENDO [facility], Endoscopy Room [facility] [place] [address] Selvin Brower MD [address] [place] [address] ESOPHAGOGASTRODUODENOSCOPY (EGD), FLEXIBLE, TRANSORAL, DIAGNOSTIC 4 2:00 PM EST PulmDiagnostic Sleep Lab [facility] [address] [facility] [place] [address] [facility], Sleep Med Home Study [address] [place] [address] 5 11:30 AM EST Office Visit Gastroenterolog y, [facility] 132 [facility] [place] [address] Vladimir Dominguez CRNP [address] [facility] [place] [address] 5 3:30 PM EST Telemedicine Psychiatry Kalani Cadena [address] [place] [address] Renetta Cox MD [address] [place] [address] 5 2:00 PM EST Office Visit Cardiology, [facility] 132 [facility] [place] [address] Eddie Hanna CRNP [address] [place] [address] 5 1:00 PM EDT Laboratory Laboratory, [facility] 132 [place] [phone] Hema Frias [address] [place] [address] 5 3:00 PM EDT Office Visit Hematology/[facility]co [facility] [place] [address] [place] [phone] Trinh Donahue MD [address] [place] [address] 5 11:00 AM EDT Office Visit Dermatology [facility] [place] [address] [place] [address] Trinh Edwards PA-C 200 [facility] [place] [address] Scheduled Procedures Name Priority Associated Diagnoses Date/Ti me ESOPHAGOGASTRODUODENOSCOPY ( EGD), FLEXIBLE, TRANSORAL, DIAGNOSTIC Esophageal dysphagia 02/22/2024 10:45 AM EST Health Maintenance Due Date Last Done Comments Rice's Esophagus Surveilance 1940 Albumin/Creatinine Ratio 1956 Zoster Vaccines (1 of 2) 1988 Adult Wellness Visit 2004 Depression Monitoring 06/24/2023 06/23/2022 COVID-19 Vaccine ( season) 2023 02/09/2023, 06/23/2021, 12/10/2020, Additional history exists Influenza Vaccine (FLU shot) (#1) 2023 12/24/2022, 12/24/2022, 01/07/2022, Additional history exists CKD PHOS USE SMARTSET 08612 05/24/2024 05/25/2023 HbA1c 05/24/2024 05/25/2023, 01/09/2019 CKD HGB USE SMARTSET 85402 12/29/202412/29, 12/30/2023, 06/24/2023, Additional history exists DTap/Tdap Vaccines (2 - Td or Tdap) 04/21/2025 04/21/2015, 03/09/2005 Hepatitis B Vaccine Aged Out 03/06/2007, 10/05/2006, 08/10/2006 No longer eligible based on patient's age to complete this topic Pneumococcal Vaccine: 65+ Years Completed 12/08/2020, 03/03/2015, 03/14/2002 HPV (Gardasil) Vaccine Aged Out No lo nger eligible based on patient's age to complete this topic MENINGOCOCCAL (MENACTRA/MENVEO) Aged Out No longer eligible based on patient's age to complete this topic documented as of this encounter Medical Devices Not on filedocumented as of this encounter Results * (ABNORMAL) LIPID PANEL WITH DIRECT LDL IF TG IS HIGH (01/31/2024 9:53 AM EST) Triglycerides 205(H) <=174 mg/dL 01/31/2024 10:15 PM EST [facility] Comment: Triglyceride Reference Ranges (mg/dL): <150 Acceptable 150-174 Borderline high 175-499 High >=500 Very high Cholesterol 203(H) <200 mg/dL 01/31/2024 10:15 PM EST [facility] Comment: Total Cholesterol Reference Ranges (mg/dL): <200 Desirable 200-239 Borderline high >=240 High HDL Cholesterol 39(L) >39 mg/dL 10:15 PM EST [facility] Comment: HDL Cholesterol Reference Ranges (mg/dL): >=60 High (Desirable) <50 Low (Undesirable) For Females <40 Low (Undesirable) For Males Non-HDL Cholesterol 164(H) <=159 mg/dL 01/31/2024 10:15 PM EST [facility] Comment: Non-HDL Cholesterol Reference Range (mg/dL): <100 Target level for high risk ASCVD patient <130 Optimal for general population 130-159 Near optimal for general population 160-189 Borderline High 190-219 High >=220 Very High LDL Cholesterol 123 <=129 mg/dL 01/31/2024 10:15 PM EST [facility] Comment: LDL Cholesterol Reference Ranges (mg/dL): <70 Target level for high risk ASCVD patient <100 Optimal for general population 100-129 Near optimal for general population 130-159 Borderline high 160-189 High >=190 Very high Blood Venous blood specimen / Unknown Venipuncture / Unknown 01/31/2024 9:53 AM EST 01/31/2024 9:53 AM EST Tien Langford [facility] LAB BLOOD ORDERABLES Eleni orellana Result [facility] [address] [facility] [place] [address] documented in this encounter Visit Diagnoses Diagnosis Coronary artery disease involving modoc coronary artery of modoc heart without angina pectoris- Primary Esophageal dysphagia Dysphagia, pharyngoesophageal phase documented in this encounter Care Teams Client Liaison Relationship Specialty Start Date End Date Melissa Bean MD [address] [facility] [place] [address] PCP - General Internal Medicine 03/25/22 documented as of this encounter
--- OUTSIDE RECORDS SUMMARY | 2024-07-27 16:13 | External Medical Summary | Summary of Care ---
Author Name Unknown Organization [facility] Address [address] [facility] [place] [address] Phone [phone] Care Team Providers Care Blue Line Trimmer Name Role Phone Melissa Bean MD Primary Care Provider Reason for Visit * Reason Onset Date Comments Pacemaker Clinic 05/24/2024 Missed transmis rebekah Encounter Details Date Type Department Care Team (Late st Contact Info) Description 05/24/2024 Telephone Cardiology, [facility] [address] [place] [address] [place], Pacer Clinic [facility] [address] [place] [address] Pacemaker Clinic (Missed transmission ) Allergies Active Allergy Reactions Criticality Noted Date Comments Codeine 03/25/2022 Egg-Derived Products 03/25/2022 But no reaction to the flu vaccine. Aversion, not allergy Penicillins 03/25/2022 documented as of this encounter (statuses as of 05/24/2024) Medications Acetaminophen 325 MG Oral Tablet (Tylenol) [...] Oral Tablet (Lipitor)Indicat ions:Coronary artery disease involving alutiiq coronary artery of alutiiq heart without angina pectoris Take 1 Tablet by mouth in the morning. 90 Tablet 3 5 Active FLUoxetine HCl 40 MG Oral Capsule (PROzac) Take 80 mg (2 pills) every morning. 180 Capsule 3 5 Active documented as of this encounter (statuses as of 05/24/2024) Active Problems Problem Noted Date Diagnosed Date [...] deficiency 03/25/2022 Coronary artery disease invo lving alutiiq coronary artery of alutiiq heart without angina pectoris 03/25/2022 Rice's esophagus [...] as of this encounter (statuses as of 05/24/2024) Resolved Problems Problem Noted Date Diagnosed Date Resolved Date Prepatellar bursitis 09/09/2016 024 Semimembranosus tendinitis 08/04/2016 0 05/25/2023 documented as of this encounter (statuses as of 05/24/2024) Immunizations Name Administration Dates Next Due COVID-19 mRNA, LNP-s, No Pre serve, 2-Dose Series (Pfizer) 06/23/2021,12/10/2020,05/09/2020,04/18 Hepatitis B, 0-19 yrs 03/06/2007,10/05/2006,07/14 Pneumococcal [...] encounter Miscellaneous Notes * Telephone Encounter - Tamika Younger LPN - 05/24/2024 2:27 PM EDT MyG message sent to patient regarding missed remote transmission documented in this encounter Plan of Treatment Upcoming Encounters Date Type Department Care Team (Latest Contact Info) Description 1:30 PM EDT Telemedicine Psychiatry Kalani Cadena [address] [place] [address] Renetta Cox MD [address] [place] [phone] 5 1:00 PM EDT Laboratory Laboratory, [facility] [address] [facility] [place] [phone] [facility] [place] [address] 5 3:00 PM EDT [facility] 200 [facility] [place] [phone] Trinh Donahue MD 200 [facility] [place] [address] 5 11:15 AM EDT Hospital Encounter ENDO [facility], Endoscopy Room [facility] [address] [place] [phone] Selvin Brower MD [address] [place] [address] 5 11:15 AM EDT - 5 11:45 AM EDT Surgery ENDO [facility], Endoscopy Room [facility] [address] [place] [phone] Selvin Brower MD [address] [place] [address] ESOPHAGOGASTRODUODENOSCOPY (EGD), FLEXIBLE, TRANSORAL, DIAGNOSTIC 5 2:30 PM EDT Office Visit Cardiology, [facility] [address] [place] [address] Crystal Hanna CRNP 400 [facility] [place] [phone] 5 11:00 AM EDT Office Visit Dermatology [facility] 200 [facility] [place] [address] Trinh Edwards PA-C 200 [facility] [place] [address] Scheduled Procedures Name Priority Associated Diagnoses Date/Ti me ESOPHAGOGASTRODUODENOSCOPY ( EGD), FLEXIBLE, TRANSORAL, DIAGNOSTIC Esophageal dysphagia 08/08/2024 11:15 AM EDT Health Maintenance Due Date Last Done Comments Rice's Esophagus Surveilance 1938 Albumin/Creatinine Ratio 1956 Zoster Vaccines (1 of 2) 1988 Adult Wellness Visit 2004 Depression Monitoring 06/24/2023 06/23/2022 CKD PHOS USE SMARTSET 23717 05/24/2024 05/25/2023 HbA1c 05/24/2024 05/25/2023, 01/09/2019 COVID-19 Vaccine ( season) 2024 12/15/2023, 02/09/2023, 06/23/2021, Additional history exists CKD HGB USE SMARTSET 24569 12/29/202412/29, 12/30/2023, 06/24/2023, Additional history exists DTap/Tdap [...] filedocumented as of this encounter Care Teams Blue Line Trimmer Relationship Specialty Start Date End Date Melissa Bean MD [facility] [address] [place] [address] PCP - General Internal Medicine 03/25/22 documented as of this encounter
--- OUTSIDE RECORDS SUMMARY | 2024-07-27 16:13 | External Medical Summary | Summary of Care ---
Author Name Unknown Organization [facility] Address [address] [facility] [place] [address] Phone [phone] Care Team Providers Care Bindery Library Technical Assistant Name Role Phone Melissa Bean MD Primary Care Provider Reason for Visit * Reason Onset Date Comments Health Maintenance 06/18/2024 Encounter Details Date Type Department Care Team (Late st Contact Info) Description 06/18/2024 Telephone Family Practice [facility] [address] [place] [address] Melissa Bean MD [address] [facility] [place] [address] Health Maintenance Allergies Active Allergy Reactions Criticality Noted Date Comments Codeine 03/25/2022 Egg-Derived Products 03/25/2022 But no reaction to the flu vaccine. Aversion, not allergy Penicillins 03/25/2022 documented as of this encounter (statuses as of 06/18/2024) Medications Acetaminophen 325 MG Oral Tablet (Tylenol) [...] Oral Tablet (Lipitor)Indicat ions:Coronary artery disease involving [place] coronary artery of [place] heart without angina pectoris Take 1 Tablet by mouth in the morning. 90 Tablet 3 5 Active FLUoxetine HCl 40 MG Oral Capsule (PROzac) Take 80 mg (2 pills) every morning. 180 Capsule 3 5 Active Metoprolol Succinate ER 25 MG Oral Tablet Extended Release 24 Hour (toPROL XL)Indications:E ssential hypertension,PVC (premature ventricular contraction) TAKE 1 TABLET BY MOUTH EVERY MORNING 90 Tablet 5 Active documented as of this encounter (statuses as of 06/18/2024) Active Problems Problem Noted Date Diagnosed Date [...] deficiency 03/25/2022 Coronary artery disease invo lving [place] coronary artery of [place] heart without angina pectoris 03/25/2022 Rice's esophagus [...] as of this encounter (statuses as of 06/18/2024) Resolved Problems Problem Noted Date Diagnosed Date Resolved Date Prepatellar bursitis 09/09/2016 024 Semimembranosus tendinitis 08/04/2016 0 05/25/2023 documented as of this encounter (statuses as of 06/18/2024) Immunizations Name Administration Dates Next Due COVID-19 mRNA, LNP-s, No Pre serve, 2-Dose Series (Houserie) 06/23/2021,12/10/2020,05/09/2020,04/18 Hepatitis B, 0-19 yrs 03/06/2007,10/05/2006,07/14 Pneumococcal [...] encounter Miscellaneous Notes * Telephone Encounter - Ángela Carmona LPN - 06/18/2024 9:52 AM EDT Care Gaps Comprehensive Care Outreach Last Office/Telemedicine Visit: 06/24/2023 (in office), Visit date not found (telemedicine) Next Office Visit: Visit date not found Hemoglobin AIC Results: Lab Results Component Value Date/Time HEMOGLOBIN A1C - [facility] 5.8 (H) 05/25/2023 10:42 AM BP Readings from Last 1 Encounters: 03/27/24 124/72 Reviewed Health Maintenance below: Health Maintenance Topic Date Due Rice's Esophagus Surveilance Never done Depression Monitoring Never done Albumin/Creatinine Ratio Never done Zoster Vaccines (1 of 2) Never done Adult Wellness Visit Never done HbA1c 05/24/2024 CKD PHOS USE SMARTSET 28414 05/24/2024 COVID-19 Vaccine ( season) 2024 Ov labs Care Gap Outreach Action Taken: Left message and MyChart message sent documented in this encounter Plan of Treatment Upcoming Encounters Date Type Department Care Team (Latest Contact Info) Description 5 1:30 PM EDT Telemedicine Psychiatry Kalani Cadena [address] [place] [address] Renetta Cox MD [address] [place] [address] 5 1:00 PM EDT Laboratory Laboratory, Charla Frias [place] [address] [place] [phone] Hema Frias [address] [place] [address] 5 3:00 PM EDT Office Visit Hematology/Onco logy Joaquin [place]en[place] [address] [place] [address] Trinh Donahue MD 200 [facility] [address] 5 11:15 AM EDT Hospital Encounter ENDO [facility], Endoscopy Room [facility] [address] [place], [place] [phone] Selvin Brower MD [address] [place], [place] [address] 5 11:15 AM EDT - 5 11:45 AM EDT Surgery ENDO [facility], Endoscopy Room [facility] [address] [place] [address] Selvin Brower MD [address] [place], [place] [address] ESOPHAGOGASTRODUODENOSCOPY (EGD), FLEXIBLE, TRANSORAL, DIAGNOSTIC 5 2:30 PM EDT Office Visit Cardiology, [facility] [address] [place] [phone] Crystal Hanna CRNP [address] [place] [address] [place] [address] 5 11:00 AM EDT Office Visit Dermatology [facility] 200 [facility] [place], [place] [address] Trinh Edwards PA-C 200 [facility] [place] [address] Scheduled Procedures Name Priority Associated Diagnoses Date/Ti me ESOPHAGOGASTRODUODENOSCOPY ( EGD), FLEXIBLE, TRANSORAL, DIAGNOSTIC Esophageal dysphagia 08/08/2024 11:15 AM EDT Health Maintenance Due Date Last Done Comments Rice's Esophagus Surveilance 1938 Depression Monitoring 1950 Albumin/Creatinine Ratio 1956 Zoster Vaccines (1 of 2) 1988 Adult Wellness Visit 2004 CKD PHOS USE SMARTSET 33931 05/24/2024 05/25/2023 HbA1c 05/24/2024 05/25/2023, 01/09/2019 COVID-19 Vaccine ( season) 2024 12/15/2023, 02/09/2023, 06/23/2021, Additional history exists CKD HGB USE SMARTSET 05306 12/29/202412/29, 12/30/2023, 06/24/2023, Additional history exists DTap/Tdap [...] filedocumented as of this encounter Care Teams Bindery Library Technical Assistant Relationship Specialty Start Date End Date Melissa Bean MD [address] [place] [address] PCP - General Internal Medicine 03/25/22 documented as of this encounter
--- OUTSIDE RECORDS SUMMARY | 2024-07-27 16:13 | External Medical Summary | Summary of Care ---
Author Name Unknown Organization [facility] Address [address] [facility] [address] Phone [phone] Care Team Providers Care Carpet Sewing Machine Operator Name Role Phone Melissa Bean MD Primary Care Provider Reason for Visit * Reason Comments eRx-Medication Refill Encounter Details Date Type Department Care Team (Late st Contact Info) Description 05/28/2024 Refill Cardiology, [facility] 132 [facility] [place] [phone] Norma Nunez, [address] [facility] [place] [address] Essential hypertension; PVC (premature ventricular contraction) Allergies Active Allergy Reactions Criticality Noted Date Comments Codeine 03/25/2022 Egg-Derived Products 03/25/2022 But no reaction to the flu vaccine. Aversion, not allergy Penicillins 03/25/2022 documented as of this encounter (statuses as of 05/29/2024) Medications Acetaminophen 325 MG Oral Tablet (Tylenol) [...] Oral Tablet (Lipitor)Indica tions:Coronary artery disease involving [place] coronary artery of [place] heart without angina pectoris Take 1 Tablet by mouth in the morning. 90 Tablet 3 05/09/19 25 Active FLUoxetine HCl 40 MG Oral Capsule (PROzac) Take 80 mg (2 pills) every morning. 180 Capsule 3 05/17/19 25 Active Metoprolol Succinate ER 25 MG Oral Tablet Extended Release 24 Hour (toPROL XL)Indications: Essential hypertension,PV C (premature ventricular contraction) TAKE 1 TABLET BY MOUTH EVERY MORNING 90 Tablet 05/29/19 25 Active Metoprolol Succinate ER 25 MG Oral Tablet Extended Release 24 Hour (toPROL XL)Indications: Essential hypertension,PV C (premature ventricular contraction) take 1 tablet by mouth every morning 90 Tablet 3 04/20/19 24 025 Discontinued documented as of this encounter (statuses as of 05/29/2024) Active Problems Problem Noted Date Diagnosed Date [...] deficiency 03/25/2022 Coronary artery disease invo lving [place] coronary artery of [place] heart without angina pectoris 03/25/2022 Rice's esophagus [...] as of this encounter (statuses as of 05/29/2024) Resolved Problems Problem Noted Date Diagnosed Date Resolved Date Prepatellar bursitis 09/09/2016 024 Semimembranosus tendinitis 08/04/2016 0 05/25/2023 documented as of this encounter (statuses as of 05/29/2024) Immunizations Name Administration Dates Next Due COVID-19 mRNA, LNP-s, No Pre serve, 2-Dose Series (Fonemesh) 06/23/2021,12/10/2020,05/09/2020,04/18 Hepatitis B, 0-19 yrs 03/06/2007,10/05/2006,07/14 Pneumococcal [...] encounter Miscellaneous Notes * Telephone Encounter - Sunitha Dave [facility] - 05/28/2024 6:32 PM EDT Signed Prescriptions: Disp Refills Metoprolol Succinate ER 25 MG Oral Tablet *90 Tab*0 Sig: TAKE 1 TABLET BY MOUTH EVERY MORNINGAuthorizing Provider: NORMA NUNEZ User: SUNITHA DAVE documented in this encounter Plan of Treatment Upcoming Encounters Date Type Department Care Team (Latest Contact Info) Description 5 1:30 PM EDT Telemedicine Psychiatry Kalani Cadena [address] [place] [address] Renetta Cox MD [address] [place] [address] 5 1:00 PM EDT Laboratory Laboratory, [facility] [address] [place] [phone] Hema Frias 132 [facility] [place] [address] 5 3:00 PM EDT Office Visit Hematology/Onco logy Joaquin [place] [address] [place] [address] Trinh Donahue MD [address] [place] [address] 5 11:15 AM EDT Hospital Encounter ENDO [facility], Endoscopy Room [facility] [address] [place], [place] [phone] Selvin Brower MD [address] [place], [place] [address] 5 11:15 AM EDT - 5 11:45 AM EDT Surgery ENDO [facility], Endoscopy Room [facility] [address] [place] [phone] Selvin Brower MD [address] [place] [address] ESOPHAGOGASTRODUODENOSCOPY (EGD), FLEXIBLE, TRANSORAL, DIAGNOSTIC 5 2:30 PM EDT Office Visit Cardiology, [facility] 132 [facility] [place] [address] Crystal Hanna CRNP [address] [place] [address] [place] [address] 5 11:00 AM EDT Office Visit Dermatology [facility] 200 [facility] [place] [address] Trinh Edwards PA-C 200 [facility] [place] [address] Scheduled Procedures Name Priority Associated Diagnoses Date/Ti me ESOPHAGOGASTRODUODENOSCOPY ( EGD), FLEXIBLE, TRANSORAL, DIAGNOSTIC Esophageal dysphagia 08/08/2024 11:15 AM EDT Health Maintenance Due Date Last Done Comments Rice's Esophagus Surveilance 1938 Albumin/Creatinine Ratio 1956 Zoster Vaccines (1 of 2) 1988 Adult Wellness Visit 2004 Depression Monitoring 06/24/2023 06/23/2022 CKD PHOS USE SMARTSET 91661 05/24/2024 05/25/2023 HbA1c 05/24/2024 05/25/2023, 01/09/2019 COVID-19 Vaccine ( season) 2024 12/15/2023, 02/09/2023, 06/23/2021, Additional history exists CKD HGB USE SMARTSET 72364 12/29/202412/29, 12/30/2023, 06/24/2023, Additional history exists DTap/Tdap [...] as of this encounter Visit Diagnoses Diagnosis Essential hypertension Unspecified essential hypertension PVC (premature ventricular contraction) Other premature beats Esophageal dysphagia Dysphagia, pharyngoesophageal phase documented in this encounter Care Teams Carpet Sewing Machine Operator Relationship Specialty Start Date End Date Melissa Bean MD [address] [place] [address] PCP - General Internal Medicine 03/25/22 documented as of this encounter
--- OUTSIDE RECORDS SUMMARY | 2024-07-27 16:13 | External Medical Summary | Summary of Care ---
Author Name Unknown Organization [facility] Address [address] [facility] [place] [address] Phone [phone] Care Team Providers Care Sales Exhibitor Name Role Phone Melissa Bean MD Primary Care Provider Reason for Visit * Reason Onset Date Comments FYI 03/22/2024 Unable to do HST -Dementia Encounter Details Date Type Department Care Team (Late st Contact Info) Description 03/22/2024 Telephone Sleep Disorders Ctr [facility] [address] [place] [address] Fawn Trejo DO [address] [place] [address] FYI (Unable to do HST-Dementia) Allergies Active Allergy Reactions Criticality Noted Date Comments Codeine 03/25/2022 Egg-Derived Products 03/25/2022 But no reaction to the flu vaccine. Aversion, not allergy Penicillins 03/25/2022 documented as of this encounter (statuses as of 03/22/2024) Medications Acetaminophen 325 MG Oral Tablet (Tylenol) [...] pill) every morning. 90 Capsule 1 4 Active FLUoxetine HCl 20 MG Oral Capsule (PROzac) Take 60 mg (one 40 mg pill and one 20 mg pill) every morning. 90 Capsule 1 4 Active documented as of this encounter (statuses as of 03/22/2024) Active Problems Problem Noted Date Diagnosed Date [...] deficiency 03/25/2022 Coronary artery disease invo lving [place] coronary artery of [place] heart without angina pectoris 03/25/2022 Rice's esophagus [...] as of this encounter (statuses as of 03/22/2024) Resolved Problems Problem Noted Date Diagnosed Date Resolved Date Prepatellar bursitis 09/09/2016 024 Semimembranosus tendinitis 08/04/2016 0 05/25/2023 documented as of this encounter (statuses as of 03/22/2024) Immunizations Name Administration Dates Next Due COVID-19 [...] do you feel lonely or isolated from th ose around you? Rarely 08/22/2023 Financial Resource [...] Telephone Encounter - Judi Eduardo LPN - 03/22/2024 10:13 AM EST Our office provided the pt with an HST 03/12/24. As of today the pt still has not tested or returned the device. Our office called the pt's phn number and spoke with the pt's daughter Anmol. Daughter states the pt has dementia and is having a hard time wearing the HST. States the pt is too confused to complete the study. Pt's daughter states the family has decided to pul back on some of the testing ordered. Not planning on hospice at this time,but not having the pt go through some things ordered. Pt's daughter will be returning the device to the office documented in this encounter Plan of Treatment Upcoming Encounters Date Type Department Care Team (Latest Contact Info) Description 5 3:30 PM EST Telemedicine Psychiatry Kalani Cadena [address] [place] [phone] Renetta Cox MD [address] [place] [phone] 5 2:00 PM EST Office Visit Cardiology, [facility] 132 [place] [address] Crystal Hanna CRNP [address] [place] [address] 5 1:00 PM EDT Laboratory Laboratory, [facility] [phone] Hema Frias 132 [facility] [place] [address] 5 3:00 PM EDT Office Visit Hematology/Onco logy [facility] [address] [place] [address] Trinh Donahue MD 200 [facility] [place] [address] 5 11:15 AM EDT Hospital Encounter ENDO [facility], Endoscopy Room [facility] [address] [place] [phone] Selvin Brower MD [address] [place] [address] 5 11:15 AM EDT - 5 11:45 AM EDT Surgery ENDO [facility], Endoscopy Room [facility] [address] [place] [phone] Selvin Brower MD [address] [place] [address] ESOPHAGOGASTRODUODENOSCOPY (EGD), FLEXIBLE, TRANSORAL, DIAGNOSTIC 5 11:00 AM EDT Office Visit Dermatology [facility] [place] 200 [facility] [place], [place] [address] Trinh Edwards PA-C 200 [facility] [place], [place] [address] Scheduled Procedures Name Priority Associated Diagnoses Date/Ti me ESOPHAGOGASTRODUODENOSCOPY ( EGD), FLEXIBLE, TRANSORAL, DIAGNOSTIC Esophageal dysphagia 08/08/2024 11:15 AM EDT Health Maintenance Due Date Last Done Comments Rice's Esophagus Surveilance 1938 Albumin/Creatinine Ratio 1956 Zoster Vaccines (1 of 2) 1988 Adult Wellness Visit 2004 Depression Monitoring 06/24/2023 06/23/2022 CKD PHOS USE SMARTSET 19423 05/24/2024 05/25/2023 HbA1c 05/24/2024 05/25/2023, 01/09/2019 CKD HGB USE SMARTSET 83516 12/29/202412/29, 12/30/2023, 06/24/2023, Additional history exists DTap/Tdap [...] filedocumented as of this encounter Care Teams Sales Exhibitor Relationship Specialty Start Date End Date Melissa Bean MD [address] [place] [address] PCP - General Internal Medicine 03/25/22 documented as of this encounter
--- OUTSIDE RECORDS SUMMARY | 2024-07-27 16:13 | External Medical Summary | Summary of Care ---
Author Name Unknown Organization [facility] Address [address] [place] [address] Phone [phone] Care Team Providers Care Balance Wheel Screw Hole Tapper Name Role Phone Melissa Bean MD Primary Care Provider Encounter Details Date Type Department Care Team (Late st Contact Info) Description 06/18/2024 1:30 PM EDT Telemedicine Psychiatry Kalani Cadena [address] [place] [address] Renetta Cox MD [address] [place] [address] Alzheimer's disease (HCC)*; Major depressive disorder, recurrent episode, mild (HCC) Allergies Active Allergy Reactions Criticality Noted Date [...] Oral Tablet (Lipitor)Indicat ions:Coronary artery disease involving [place] coronary artery of [place] heart without angina pectoris Take 1 Tablet [...] deficiency 03/25/2022 Coronary artery disease invo lving [place] coronary artery of [place] heart without angina pectoris 03/25/2022 Rice's esophagus [...] mRNA, LNP-s, No Pre serve, 2-Dose Series (Anaphore) 06/23/2021,12/10/2020,05/09/2020,04/18 Hepatitis B, 0-19 yrs 03/06/2007,10/05/2006,07/14 Pneumococcal [...] as of this encounter Progress Notes * Renetta Cox MD - 06/18/2024 1:43 PM EDT Called x 4, no answer. Will reschedule. documented in this encounter Plan of Treatment Upcoming Encounters Date Type Department Care Team (Latest Contact Info) Description 11:00 AM EDT Telemedicine Psychiatry Kalani Cadena [address] [place] [address] Renetta Cox MD [address] [place] [address] 5 1:00 PM EDT Laboratory Laboratory, [facility] [address] [place] [phone] [facility] [address] [place] [address] 5 3:00 PM EDT Office Visit Hematology/Onco logy [facility] [address] [place] [address] Trinh Donahue MD [address] [place] [address] 5 11:15 AM EDT Hospital Encounter [facility]O [facility], Endoscopy Room [facility] [address] [place] [phone] Selvin Brower MD [address] [place] [address] 5 11:15 AM EDT - 5 11:45 AM EDT Surgery ENDO [facility], Endoscopy Room [facility] [address] [place] [address] Selvin Brower MD [address] [place] [address] ESOPHAGOGASTRODUODENOSCOPY (EGD), FLEXIBLE, TRANSORAL, DIAGNOSTIC 5 2:30 PM EDT Office Visit Cardiology, [facility] [address] [place] [phone] Crystal Hanna CRNP 400 [facility] [place] [address] 5 11:00 AM EDT Office Visit Dermatology [facility] 200 [facility] [place] [address] Trinh Edwards PA-C 200 [facility] [place] [address] Scheduled Procedures Name Priority Associated Diagnoses Date/Ti me ESOPHAGOGASTRODUODENOSCOPY ( EGD), FLEXIBLE, TRANSORAL, DIAGNOSTIC Esophageal dysphagia 08/08/2024 11:15 AM EDT Health Maintenance Due Date Last Done Comments Rice's Esophagus Surveilance 1938 Depression Monitoring 1950 Albumin/Creatinine Ratio 1956 Zoster Vaccines (1 of 2) 1988 Adult Wellness Visit 2004 CKD PHOS USE SMARTSET 21795 05/24/2024 05/25/2023 HbA1c 05/24/2024 05/25/2023, 01/09/2019 COVID-19 Vaccine ( season) 2024 12/15/2023, 02/09/2023, 06/23/2021, Additional history exists CKD HGB USE SMARTSET 88516 12/29/202412/29, 12/30/2023, 06/24/2023, Additional history exists DTap/Tdap [...] as of this encounter Visit Diagnoses Diagnosis Alzheimer's disease (HCC)- Primary Alzheimer's disease Major depressive disorder, recurrent episode, mild (HCC) Major depressive disorder, recurrent episode, mild Esophageal dysphagia Dysphagia, pharyngoesophageal phase documented in this encounter Care Teams Balance Wheel Screw Hole Tapper Relationship Specialty Start Date End Date Melissa Bean MD 132 [facility] [place] [address] PCP - General Internal Medicine 03/25/22 documented as of this encounter
--- OUTSIDE RECORDS SUMMARY | 2024-07-27 16:13 | External Medical Summary | Summary of Care ---
Author Name Unknown Organization [facility] Address [address] [place] [address] Phone [phone] Care Team Providers Care Lozenge Maker Name Role Phone Melissa Bean MD Primary Care Provider Reason for Visit * Reason Comments Follow Up Encounter Details Date Type Department Care Team (Late st Contact Info) Description 03/27/2024 2:00 PM EST Office Visit Cardiology, [facility] [address] [facility] [place] [phone] Crystal Hanna CRNP [address] [place] [address] Coronary artery disease involving [place] coronary artery of [place] heart without angina pectoris*; CHB (complete heart block) (HCC); PVC (premature ventricular contraction); Cardiac pacemaker in situ Allergies Active Allergy Reactions Criticality Noted Date Comments Codeine 03/25/2022 Egg-Derived Products 03/25/2022 But no reaction to the flu vaccine. Aversion, not allergy Penicillins 03/25/2022 documented as of this encounter (statuses as of 03/30/2024) Medications Acetaminophen 325 MG Oral Tablet (Tylenol) [...] pill) every morning. 90 Capsule 1 4 03/27/19 25 Discontinu ed(Refill) FLUoxetine HCl 20 MG Oral Capsule (PROzac) Take 60 mg (one 40 mg pill and one 20 mg pill) every morning. 90 Capsule 1 4 03/27/19 25 Discontinu ed(Refill) documented as of this encounter (statuses as of 03/30/2024) Active Problems Problem Noted Date Diagnosed Date CHB (complete heart block) 06/24/2023 Prediabetes 06/20/2023 Overview: Per Prediabetes protocol Disorder of rotator cuff 05/25/2023 Enthesopathy of hip region 05/25/2023 Recurrent major depressive disorder 06/23/2022 Hx of malignant melanoma 03/31/2022 Overview (03/31/2022): R peterek, 0.7mm, Solis IV. 12/2013. Hx of lymphoma 03/31/2022 Overview (03/31/2022): State IIIA. Follicular. S/p bendamustine/rituximab 6 cycles competed 10/2011. ROBERT as of 11/2020. Vitamin D deficiency 03/25/2022 Coronary artery disease invo lving [place] coronary artery of [place] heart without angina pectoris 03/25/2022 Rice's esophagus [...] as of this encounter (statuses as of 03/30/2024) Resolved Problems Problem Noted Date Diagnosed Date Resolved Date Prepatellar bursitis 09/09/2016 024 Semimembranosus tendinitis 08/04/2016 0 05/25/2023 documented as of this encounter (statuses as of 03/30/2024) Immunizations Name Administration Dates Next Due COVID-19 mRNA, LNP-s, No Pre serve, 2-Dose Series (Biometric [employer]) 06/23/2021,12/10/2020,05/09/2020,04/18 Hepatitis B, 0-19 yrs 03/06/2007,10/05/2006,07/14 Pneumococcal [...] Sign Reading Time Taken Comments Blood Pressure 124/72 03/27/2024 2:40 PM EST Pulse 68 03/27/2024 2:40 PM EST Temperature - - Respiratory Rate 16 03/27/2024 2:40 PM EST Oxygen Saturation - - Inhaled Oxygen Concentration - - Weight 95.3 kg (210 lb) 03/27/2024 2:40 PM EST Height - - Body Mass Index 34.15 08/16/2023 3:12 PM EDT documented in this encounter Progress Notes * Norma Esparza DO - 03/30/2024 5:43 PM EST I have reviewed the advanced practitioner's documentation on the date of service referenced in note, and I agree with, and take responsibility for the plan of care. Pt returns to EP for remote 2 year f/u due to CHB s/p ppm Pt has been having more sleeping problems reportedly but I would not recommend any stimulants givenhis underlying cardiac conditions and his advanced age Continue with routine device checks No change in cardiac medications EP f/u 6 months Norma Esparza DO Department of Cardiology [facility] [place] [address] * Crystal Hanna CRNP - 03/27/2024 3:15 PM EST Subjective Matthew Schaeffer PHD is a 83 year old male. Chief Complaint Patient presents with Follow Up Pt returns to EP for remote f/u due to CHB s/p ppm Cardiac Problems: CAD non-obstructive by ppm in 2010 HTN HLD Normal EF by echo outside facility in 2020 CDK stage II PVCs on BB NSVT on ppm check in 2017 CHB s/p Ppm medtronic 09/18/2016 HPI: 83 year old male presents for routine EP Follow up accompanied by his . Last seen in the clinic2 years ago. Feeling well since their last visit with no acute concerns today. Has noticed hypersomnolence was recommended stimulant therapy by Psychiatry as long as it was cleared from a cardiac perspective. Feels like his energy levels during the day are not good. If he feels to tired he will fall asleep if he reads or does sedentary things. Takes a nap during the day and will feel better after. Overnight feels like he sleeps well. Denies chest pain, SOB, palpitations, dizziness, syncope, edema, orthopnea and PND. No change in activity tolerance. Reports compliance with medications without any untoward side effects, or difficulty with affordability. 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 As needed Multi-Vitamin Oral Tablet Take 1 Tablet by mouth in the morning. Vitamin D High Potency 25 MCG (1000 UT) Oral Capsule (Cholecalciferol) Take 1 Capsule by mouth in the morning. Metoprolol Succinate ER 25 MG Oral Tablet Extended Release 24 Hour (toPROL XL) take 1 tablet by mouth every morning 90 Tablet 3 LORazepam 1 MG Oral Tablet (Ativan) Take one pill 1 hour before MRI. Can take a second pill 30-60 min if needed. This may make you unsteady on your feet, so make sure you have someone to help you walk. 5 Tablet 0 Atorvastatin Calcium 40 MG Oral Tablet (Lipitor) Take 1 Tablet by mouth in the morning. 100 Tablet 0 FLUoxetine HCl 40 MG Oral Capsule (PROzac) Take 60 mg (one 40 mg pill and one 20 mg pill) every morning. 90 Capsule 1 FLUoxetine HCl 20 MG Oral Capsule (PROzac) Take 60 mg (one 40 mg pill and one 20 mg pill) every morning. 90 Capsule 1 No current facility-administered medications for this visit. 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 Aversion, not allergy Penicillins No family history on file. Family Status Relation Status Son Alive Mode Alive Mode Alive Mode Alive Social History Socioeconomic History Marital status: Spouse name: Not on file Number of children: Not on file Years of education: Not on file Highest education level: Not on file Occupational History Not on file Tobacco Use Smoking status: Never Smokeless tobacco: Never Vaping Use Vaping status: Never Used Substance and Sexual Activity Alcohol use: Yes Comment: 1-2 glasses of wine/month Drug use: Never Sexual activity: Not on file Other Topics Concern Not on file Social History Narrative Not on file Social Needs Financial Resource Strain: Low Risk (03/26/2024) Financial Resource Strain Do you have any trouble paying for your medications, or do you think you might in the future? (Adult - for ages 18 years and over): No Does your family have trouble paying for medicine? (Household - for ages 0-17 years): Not on file Food Insecurity: No Food Insecurity (03/26/2024) Food Insecurity Do you need food for this week? (Adult - for ages 18 years and over): No Are you able to get enough food for your family? (Household - for ages 0-17 years): Not on file Does your family need food this week? (Household - for ages 0-17 years): Not on file Do you always have enough food for your family? (Household - for ages 0-17 years): Not on file Transportation Needs: No Transportation Needs (03/26/2024) Transportation Needs Do you have trouble getting a ride to medical visits or work? (Adult - for ages 18 years and over):Never True Does your family have a hard time getting a ride to doctors’ visits? (Household - for ages 0-17 years): Not on file Has lack of transportation kept you from medical appointments, meetings, work, or from getting things needed for daily living? Check all that apply. (Adult - for ages 18 years and over): No Do you (or your family) have trouble finding or paying for a ride (transportation)? (Household - for ages 0-17 years): Not on file Social Connections: Socially Integrated (03/26/2024) Social Connections How often do you feel lonely or isolated from those around you? (Adult - for ages 18 years and over): Sometimes Housing Stability: Low Risk (03/26/2024) Housing Stability Do you currently live in a [place] or have no steady place to sleep at night? (Adult - for ages 18 years and over): No Do you think you are at risk of becoming homeless? (Adult - for ages 18 years and over): No Does your family worry about paying for your home or becoming homeless? (Household - for ages 0-17 years): Not on file Are you homeless or worried that you might be in the future? (Adult - for ages 18 years and over): No Are you (or your family) homeless or worried that you might be in the future? (Household - for ages0-17 years): Not on file Review of Systems Constitutional: Positive for fatigue. Negative for activity change, chills, fever and unexpected weight change. HENT: Negative for postnasal drip, rhinorrhea and sinus pressure. Eyes: Negative for visual disturbance. Respiratory: Negative for shortness of breath. Cardiovascular: Negative for chest pain, palpitations and leg swelling. Gastrointestinal: Negative for blood in stool, constipation, diarrhea, nausea and vomiting. Genitourinary: Negative for dysuria and hematuria. Musculoskeletal: Positive for gait problem. Skin: Negative for rash. Neurological: Negative for dizziness, syncope and light-headedness. Objective BP 124/72 (BP Site: Left Arm, BP Position: Sitting) | Pulse 68 | Resp 16 | Wt 95.3 kg (210 lb) | BMI 34.15 kg/m² | BSA 2.1 m² Physical Exam Vitals and nursing note reviewed. Constitutional: General: He is awake. Appearance: Normal appearance. He is well-developed. HENT: Head: Normocephalic and atraumatic. Eyes: General: No scleral icterus. Extraocular Movements: Extraocular movements intact. Neck: Vascular: Normal carotid pulses. No carotid bruit or JVD. Cardiovascular: Rate and Rhythm: Normal rate and regular rhythm. Pulses: Carotid pulses are 2+ on the right side and 2+ on the left side. Radial pulses are 2+ on the right side and 2+ on the left side. Posterior tibial pulses are 2+ on the right side and 2+ on the left side. Heart sounds: S1 normal and S2 normal. No murmur heard. Pulmonary: Effort: Pulmonary effort is normal. Breath sounds: Normal breath sounds. No decreased breath sounds, wheezing, rhonchi or rales. Abdominal: Palpations: Abdomen is soft. Musculoskeletal: Cervical back: Neck supple. Right lower leg: No edema. Left lower leg: No edema. Skin: General: Skin is warm and dry. Neurological: General: No focal deficit present. Mental Status: He is alert and oriented to person, place, and time. Psychiatric: Attention and Perception: Attention normal. Mood and Affect: Mood normal. Speech: Speech normal. Behavior: Behavior normal. Behavior is cooperative. Thought Content: Thought content normal. Cognition and Memory: Cognition normal. Judgment: Judgment normal. Results Pacemaker Interrogation: Today: See Dr. Esparza's note for additional details In office 04/2022 Presenting rhythm: -GRAPE PRUNER Underlying rhythm: CHB Battery function good 2.98V Lead testing: RA: 1.9mV; 513 ohms; 1.5V@0.4ms RV: 7.1mV; 456 ohms; 0.75V@0.4ms Arrhythmia log: Last NSVT ws in September 2021 Device Reprogrammed: VT monitor zone detection changed from 400ms (150bpm) to 430ms (140bpm) AT/AF interval changed from 350ms (171bpm) to 380ms (158bpm) ECGs: Today GRAPE PRUNER 62 bpm 05/26/23 GRAPE PRUNER 62 bpm 2/17/23 -GRAPE PRUNER 63bpm Echocardiograms 05/06/23 The qualitative LV ejection fraction is 60-64% (normal). The LV wall thickness is mildly increased (concentric). There is isolated basal septal hypertrophy with maximal thickness of 1.5 cm. The left ventricular diastolic function is mildly abnormal (grade I). Mild aortic valve sclerosis is present. Mild aortic valve regurgitation is present. Mild mitral regurgitation is present. Mild tricuspid regurgitation is present. Aortic root is borderline enlarged, 3.9 cm. Ascending aorta is mildly enlarged, 4.0 cm. As per cardiology note from 09/23/2021 under care everywhere: PET-CT negative for sarcoidosis in 2017 CAD non-obstructive by Cath in 2010 Normal EF by echo outside facility in 2020 Lab Work Reviewed: Latest Reference Range & Units 12/30/23 10:25 01/31/24 09:53 Triglycerides <=174 mg/dL 205 (H) Cholesterol <200 mg/dL 203 (H) Non-HDL Cholesterol <=159 mg/dL 164 (H) HDL Cholesterol >39 mg/dL 39 (L) LDL Cholesterol <=129 mg/dL 123 SODIUM 135 - 146 mmol/L 139 POTASSIUM 3.5 - 5.1 mmol/L 5.0 CHLORIDE 98 - 107 mmol/L 101 CO2 22 - 32 mmol/L 27 BUN 6 - 20 mg/dL 24 (H) CREATININE 0.6 - 1.2 mg/dL 1.9 (H) EGFR >=60 mL/min 34 (L) ANION GAP 7 - 15 mmol/L 11 GLUCOSE 70 - 120 mg/dL 134 (H) CALCIUM 8.4 - 10.2 mg/dL 9.7 Protein 6.0 - 8.3 g/dL 6.0 LD <=250 U/L 250 CBC Rpt WBC 4.00 - 10.80 K/uL 9.60 RBC 4.50 - 5.25 M/uL 4.44 HGB 14.0 - 16.8 g/dL 14.5 HCT 40.0 - 48.4 % 42.6 MCV 82.0 - 99.5 fL 95.9 MCH 27.0 - 34.0 pg 32.7 MCHC 32.0 - 36.0 g/dL 34.0 RDW 11.5 - 15.5 % 13.5 PLT 140 - 400 K/uL 182 MPV 6.6 - 11.1 fL 10.1 CBC WITH WBC DIFFERENTIAL Rpt ! Absolute Neutrophils 1.80 - 7.70 K/uL 6.10 Absolute Lymphocytes 1.00 - 4.80 K/ul 1.96 Absolute Monocytes 0.00 - 1.10 K/uL 1.18 (H) Absolute Eosinophils 0.00 - 0.70 K/uL 0.27 Absolute Basophils 0.00 - 0.20 K/uL 0.09 Albumin 3.8 - 5.0 g/dL 4.0 AST 10 - 50 U/L 32 ALT 10 - 50 U/L 22 Alkaline Phosphatase 35 - 130 U/L 131 (H) Bilirubin, Total <=1.2 mg/dL 0.7 Impression CHB s/p Ppm medtronic 09/18/2016 PVCs on BB NSVT on ppm check in 2017 CAD non-obstructive by Cath in 2010 HTN-BP on the low side due to medications HLD CKD stage III/IV H/o follicular lymphoma treated at [facility] Rice's esophagus H/o malignant melanoma Depression Vitamin D deficiency Vascular dementia Plan: -HR and BP well controlled -remote device interrogations have not be received recently discuss with him in his to check that the boxes properly flushed dinner reach out if they are having difficulty once they return home -continue Toprol -received a staff message inquiring about stimulant therapy for fatigue; however discussed with himin his today that given his cardiac history had do not suspect this is a good medication for him would likely cause more harm than benefit -Educated patient on caution with change in positions to minimize symptomatic orthostatic hypotension -Discussed importance of diet & exercise with the patient. -Discussed with patient subtle changes in how they are feeling or completing daily activities to contact us sooner; don't wait days or weeks. Patient care discussed and coordinated with Dr. Esparza. Please refer to Dr. Esparza's notes for further recommendations. DISPOSITION: Follow up 6 months or if symptoms worsen/fail to improve. All questions were answered to the patients satisfaction. Patient advised to report to ED with any and all emergencies. The patient agrees to the above plan and will call with additional questions or concerns. LIDIA Olsen Cardiology, [facility] [address] [facility] [place] [address] This chart was completed in part utilizing [employer] Speech Voice Recognition Software. Grammatical errors, random word insertions, pronoun errors, and incomplete sentences are an occasional consequence of this system due to software limitations, ambient noise, and hardware issues. Any formal questions or concerns about the content, text, or information contained within the body of this dictation should be directly addressed to the provider for clarification. Cosigned by Norma Esparza DO at 03/30/2024 5:51 PM EST documented in this encounter Procedure Notes * Alberto Giordano DO - 03/27/2024 2:48 PM ESTAssociated Order(s): EKG REASON FOR STUDY: NSVT, PPM;NSVT, PPM CONCLUSIONS: Atrial-sensed ventricular-paced rhythm with occasional AV dual-paced complexes with prolonged AV conduction Abnormal ECG When compared with ECG of 25-May-2023 10:29, No significant change was found Ventricular Rate: 62 Atrial Rate: 62 QRS Duration: 174 QT/QTc: 486/493 ms P-R-T [place]: 18 : -70 : 91 degrees documented in this encounter Nursing Notes * Shazia Zepeda CMA - 03/27/2024 2:40 PM EST Examination Room: 14 Name: Matthew Schaeffer PHD Date of : (1940). Reason for Visit: follow up Interim Hospitalization(s): denies Problems/Concerns: denies Chest Pain/SOB: denies [facility] Discussed: Not applicable [facility] is a way you can talk to your provider online through e-mail. Would you like to sign up? I can activate it for you? ALREADY ACTIVE Patient was instructed to not get up on the exam table until directed and assisted by their provider; patient is to remain seated in the chair/ wheelchair/ exam table for fall prevention and safety reasons. Patient is aware to have assistance to step down off exam table with personnel. Patient voiced full comprehension of instructions. documented in this encounter Plan of Treatment Upcoming Encounters Date Type Department Care Team (Latest Contact Info) Description 5 1:00 PM EST Telemedicine Psychiatry Mary Alice Reis Kalani [address] [place] [phone] Renetta Cox MD [address] [phone] 5 1:00 PM EDT Laboratory Laboratory, [facility] [address] [place] [phone] [facility] [address] [place] [address] 5 3:00 PM EDT Office [facility] [address] [place] [phone] Trinh Donahue MD [address] [place] [address] 5 11:15 AM EDT Hospital Encounter ENDO [facility], Endoscopy Room [facility] [address] [place] [phone] Selvin Brower MD [address] [place] [address] 5 11:15 AM EDT - 5 11:45 AM EDT Surgery ENDO [facility], Endoscopy Room [facility] [address] [place] [phone] Selvin Brower MD [address] [place] [address] ESOPHAGOGASTRODUODENOSCOPY (EGD), FLEXIBLE, TRANSORAL, DIAGNOSTIC 5 2:30 PM EDT Office Visit Cardiology, [facility] [address] [place] [address] Crystal Hanna CRNP [address] [place] [address] 5 11:00 AM EDT Office Visit Dermatology [facility] [address] [facility] [place] [address] Trinh Edwards PA-C [address] [facility] [place] [address] Scheduled Procedures Name Priority Associated Diagnoses Date/Ti me ESOPHAGOGASTRODUODENOSCOPY ( EGD), FLEXIBLE, TRANSORAL, DIAGNOSTIC Esophageal dysphagia 08/08/2024 11:15 AM EDT Health Maintenance Due Date Last Done Comments Rice's Esophagus Surveilance 1940 Albumin/Creatinine Ratio 1956 Zoster Vaccines (1 of 2) 1988 Adult Wellness Visit 2004 Depression Monitoring 06/24/2023 06/23/2022 CKD PHOS USE SMARTSET 11873 05/24/2024 05/25/2023 HbA1c 05/24/2024 05/25/2023, 01/09/2019 CKD HGB USE SMARTSET 48424 12/29/202412/29, 12/30/2023, 06/24/2023, Additional history exists DTap/Tdap [...] Procedure Name Priority Date/Time Associated Diagnosis Comments NE ECG ROUTINE ECG W/LEAST 12 LDS W/I&R Routine 03/27/2024 2:48 PM EST Coronary artery disease involving [place] coronary artery of [place] heart without angina pectoris CHB (complete heart block) (HCC) PVC (premature ventricular contraction) Cardiac pacemaker in situ documented in this encounter Results * EKG (03/27/2024 2:48 PM EST) 03/27/2024 2:48 PM EST Narrative Procedure Note Alberto Giordano DO - 03/27/2024 2:48 PM EST REASON FOR STUDY: NSVT, PPM;NSVT, PPM CONCLUSIONS: Atrial-sensed ventricular-paced rhythm with occasional AV dual-paced complexes with prolonged AV conduction Abnormal ECG When compared with ECG of 25-May-2023 10:29, No significant change was found Ventricular Rate: 62 Atrial Rate: 62 QRS Duration: 174 QT/QTc: 486/493 ms P-R-T [place]: 18 : -70 : 91 degrees Crystal MURILLO EKG F inal Result Performing Organization Address City/State/ZIP Co wa Phone Number [facility] documented in this encounter Visit Diagnoses Diagnosis Coronary artery disease involving [place] coronary artery of [place] heart without angina pectoris- Primary CHB (complete heart block) (HCC) Atrioventricular block, complete PVC (premature ventricular contraction) Other premature beats Cardiac pacemaker in situ Esophageal dysphagia Dysphagia, pharyngoesophageal phase documented in this encounter Care Teams Lozenge Maker Relationship Specialty Start Date End Date Melissa Bean MD [address] [place] [address] PCP - General Internal Medicine 03/25/22 documented as of this encounter"
--- OUTSIDE RECORDS SUMMARY | 2024-07-27 16:13 | External Medical Summary | Summary of Care ---
Author Name Unknown Organization [facility] Address [address] [facility] [address] Phone [phone] Care Team Providers Care Sustainable Development Policy Analyst Name Role Phone Melissa Bean MD Primary Care Provider Encounter Details Date Type Department Care Team (Late st Contact Info) Description 02/14/2024 Telephone Pre Surgery Center, [facility] 132 [facility] José [place] [address] Selvin Brower MD [address] [facility] [place] [address] Allergies Active Allergy Reactions Criticality Noted Date [...] mouth in the morning. 100 Tablet 4 05/08/19 Discontinu ed(Refill) FLUoxetine HCl 40 MG Oral [...] deficiency 03/25/2022 Coronary artery disease invo lving [place] coronary artery of [place] heart without angina pectoris 03/25/2022 Rice's [...] mRNA, LNP-s, No Pre serve, 2-Dose Series ([employer]) 06/23/2021,12/10/2020,05/09/2020,04/18 Hepatitis B, 0-19 yrs 03/06/2007,10/05/2006,07/14 Pneumococcal [...] encounter Miscellaneous Notes * Telephone Encounter - Alivia Velez RN - 02/16/2024 10:42 AM EST Called patient`s daughter for pre anesthesia evaluation for upcoming procedure ,no answer. Left message on machine /request return call * Telephone Encounter - Alivia Velez RN - 02/14/2024 3:19 PM EST Called patient`s daughter for pre anesthesia evaluation for upcoming procedure ,no answer. Left message on machine /request return call documented in this encounter Plan of Treatment Upcoming Encounters Date Type Department Care Team (Latest Contact Info) Description 5 1:30 PM EDT Telemedicine Psychiatry [place] Cadena 9 [place] [phone] Renetta Cox MD [address] [place] [address] 5 1:00 PM EDT Laboratory [facility] 132 [facility] José [place] [phone] FriasHema montiel [facility] 132 [facility] [address] 5 3:00 PM EDT Office Visit Hematology/Onco logy Joaquin [place] [address] [place] [phone] Trinh Donahue MD [address] [place] [address] 5 11:15 AM EDT Hospital Encounter ENDO [facility], Endoscopy Room [facility] [address] [place] [address] Selvin Brower MD [address] [place] [address] 5 11:15 AM EDT - 5 11:45 AM EDT Surgery ENDO [facility], Endoscopy Room [facility] [address] [place] [phone] Selvin Brower MD [address] [place] [address] ESOPHAGOGASTRODUODENOSCOPY (EGD), FLEXIBLE, TRANSORAL, DIAGNOSTIC 5 2:30 PM EDT Office Visit Cardiology, [facility] [address] [place] [address] Crystal Hanna CRNP [address] [place] [address] [place] [address] 5 11:00 AM EDT Office Visit Dermatology [facility] 200 [facility] [place] [address] Trinh Edwards PA-C 200 [facility] [place] [address] Scheduled Procedures Name Priority Associated Diagnoses Date/Ti me ESOPHAGOGASTRODUODENOSCOPY ( EGD), FLEXIBLE, TRANSORAL, DIAGNOSTIC Esophageal dysphagia 08/08/2024 11:15 AM EDT Health Maintenance Due Date Last Done Comments Rice's Esophagus Surveilance 1938 Albumin/Creatinine Ratio 1956 Zoster Vaccines (1 of 2) 1988 Adult Wellness Visit 2004 Depression Monitoring 06/24/2023 06/23/2022 CKD PHOS USE SMARTSET 32939 05/24/2024 05/25/2023 HbA1c 05/24/2024 05/25/2023, 01/09/2019 COVID-19 Vaccine ( season) 2024 12/15/2023, 02/09/2023, 06/23/2021, Additional history exists CKD HGB USE SMARTSET 67836 12/29/202412/29, 12/30/2023, 06/24/2023, Additional history exists DTap/Tdap [...] filedocumented as of this encounter Care Teams Sustainable Development Policy Analyst Relationship Specialty Start Date End Date Melissa Bean MD [facility] [address] [place] [address] PCP - General Internal Medicine 03/25/22 documented as of this encounter
--- OUTSIDE RECORDS SUMMARY | 2024-07-27 16:13 | External Medical Summary | Summary of Care ---
Author Name Unknown Organization [facility] Address [address] [place] [address] Phone [phone] Care Team Providers Care Commissary Manager Name Role Phone Melissa Bean MD Primary Care Provider Encounter Details Date Type Department Care Team (Late st Contact Info) Description 03/27/2024 Result Scan Unspecified Department <No scans attached> Allergies Active Allergy Reactions Criticality Noted Date Comments Codeine 03/25/2022 Egg-Derived Products 03/25/2022 But no reaction to the flu vaccine. Aversion, not allergy Penicillins 03/25/2022 documented as of this encounter (statuses as of 03/29/2024) Medications Acetaminophen 325 MG Oral Tablet (Tylenol) [...] as of this encounter (statuses as of 03/29/2024) Active Problems Problem Noted Date Diagnosed Date [...] deficiency 03/25/2022 Coronary artery disease invo lving [place] coronary artery of [place] heart without angina pectoris 03/25/2022 Rice's esophagus [...] as of this encounter (statuses as of 03/29/2024) Resolved Problems Problem Noted Date Diagnosed Date Resolved Date Prepatellar bursitis 09/09/2016 024 Semimembranosus tendinitis 08/04/2016 0 05/25/2023 documented as of this encounter (statuses as of 03/29/2024) Immunizations Name Administration Dates Next Due COVID-19 mRNA, LNP-s, No Pre serve, 2-Dose Series ([employer]) 06/23/2021,12/10/2020,05/09/2020,04/18 Hepatitis B, 0-19 yrs 03/06/2007,10/05/2006,07/14 Pneumococcal [...] [phone] Renetta Cox MD 9 [place] [phone] 5 1:00 PM EDT Laboratory Laboratory, [address] [place] [address] Frias[place] [address] [place] [address] 5 3:00 PM EDT Office Visit Hematology/Onco logy Joaquin [place]en[place] [address] [place] [phone] Trinh Donahue MD [address] [place] [address] 5 11:15 AM EDT Hospital Encounter ENDO [facility], Endoscopy Room [facility] [address] [place] [phone] Selvin Brower MD [address] [place] [address] 5 11:15 AM EDT - 5 11:45 AM EDT Surgery ENDO [facility], Endoscopy Room [facility] [address] [place] [phone] Selvin Brower MD [address] [place] [address] ESOPHAGOGASTRODUODENOSCOPY (EGD), FLEXIBLE, TRANSORAL, DIAGNOSTIC 5 2:30 PM EDT Office Visit Cardiology, [facility] [address] [place] [address] Crystal Hanna CRNP 400 [facility] [place] [address] 5 11:00 AM EDT Office Visit Dermatology Joaquin [place] [address] [place] [address] Trinh Edwards PA-C [address] [place] [address] Scheduled Procedures Name Priority Associated Diagnoses Date/Ti me ESOPHAGOGASTRODUODENOSCOPY ( EGD), FLEXIBLE, TRANSORAL, DIAGNOSTIC Esophageal dysphagia 08/08/2024 11:15 AM EDT Health Maintenance Due Date Last Done Comments Rice's Esophagus Surveilance 1938 Albumin/Creatinine Ratio 1956 Zoster Vaccines (1 of 2) 1988 Adult Wellness Visit 2004 Depression Monitoring 06/24/2023 06/23/2022 CKD PHOS USE SMARTSET 66342 05/24/2024 05/25/2023 HbA1c 05/24/2024 05/25/2023, 01/09/2019 CKD HGB USE SMARTSET 87566 12/29/202412/29, 12/30/2023, 06/24/2023, Additional history exists DTap/Tdap [...] Procedure Name Priority Date/Time Associated Diagnosis Comments CARDIOLOGY SCANNED RESULT 03/27/2024 documented in this encounter Results * CARDIOLOGY SCANNED RESULT (03/27/2024) 03/27/2024 us No Physician Data Unknown OTHER Final Result documented in this encounter Care Teams Commissary Manager Relationship Specialty Start Date End Date Melissa Bean MD 132 [place] [address] PCP - General Internal Medicine 03/25/22 documented as of this encounter
--- OUTSIDE RECORDS SUMMARY | 2024-07-27 16:13 | External Medical Summary | Summary of Care ---
Author Name Unknown Organization [facility] Address [address] [facility] [address] Phone [phone] Care Team Providers Care Supervisor Production Department Name Role Phone Melissa Bean MD Primary Care Provider Reason for Visit * Reason Onset Date Comments Fax Refill 05/08/2024 Encounter Details Date Type Department Care Team (Late st Contact Info) Description 05/08/2024 Telephone Cardiology, [facility] 132 [facility] [place] [phone] Crystal Hanna CRNP [address] [place] [address] Fax Refill Allergies Active Allergy Reactions Criticality Noted Date Comments Codeine 03/25/2022 Egg-Derived Products 03/25/2022 But no reaction to the flu vaccine. Aversion, not allergy Penicillins 03/25/2022 documented as of this encounter (statuses as of 05/09/2024) Medications Acetaminophen 325 MG Oral Tablet (Tylenol) [...] help you walk. 5 Tablet 4 Active FLUoxetine HCl 40 MG Oral Capsule (PROzac) Take 60 mg (one 40 mg pill and one 20 mg pill) every morning. 90 Capsule 1 5 Active FLUoxetine HCl 20 MG Oral Capsule (PROzac) Take 60 mg (one 40 mg pill and one 20 mg pill) every morning. 90 Capsule 1 5 Active Atorvastatin Calcium 40 MG Oral Tablet (Lipitor)Indicat ions:Coronary artery disease involving diom[place] coronary artery of [place]om[place] heart without angina pectoris Take 1 Tablet by mouth in the morning. 90 Tablet 3 5 Active Atorvastatin Calcium 40 MG Oral Tablet (Lipitor) Take 1 Tablet by mouth in the morning. 100 Tablet 4 05/08/19 25 Discontinu ed(Refill) documented as of this encounter (statuses as of 05/09/2024) Active Problems Problem Noted Date Diagnosed Date [...] deficiency 03/25/2022 Coronary artery disease invo lving [place] coronary artery of [place] heart without angina pectoris 03/25/2022 Rice's esophagus [...] as of this encounter (statuses as of 05/09/2024) Resolved Problems Problem Noted Date Diagnosed Date Resolved Date Prepatellar bursitis 09/09/2016 024 Semimembranosus tendinitis 08/04/2016 0 05/25/2023 documented as of this encounter (statuses as of 05/09/2024) Immunizations Name Administration Dates Next Due COVID-19 mRNA, LNP-s, No Pre serve, 2-Dose Series ([employer]) 06/23/2021,12/10/2020,05/09/2020,04/18 Hepatitis B, 0-19 yrs 03/06/2007,10/05/2006,07/14 Pneumococcal [...] encounter Miscellaneous Notes * Telephone Encounter - Jaci Monroe CMA - 05/08/2024 11:55 AM EST Did you pend patient's preferred pharmacy and medication before forwarding?yes Pharmacy: [id number] Pending Prescriptions: Disp Refills Atorvastatin Calcium 40 MG Oral Tablet (L*90 Tab*3 Sig: Take 1 Tablet by mouth in the morning. Last Visit: 03/27/2024 (in office), Visit date not found (telemedicine) Next Visit: 10/02/2024 If no future appointments scheduled, and last appointment is greater than a year ago, please schedule patient for a follow-up appointment Last date the medication was ordered: 01/17/24 Is this request for a controlled substance?No Urine Drug Screen:No results found for this or any previous visit. Patient Phone Numbers Labs: Lab Results Component Value Date/Time CREAT 1.9 (H) 12/30/2023 10:25 AM POTASSIUM 5.0 12/30/2023 10:25 AM TSH 5.17 (H) 06/24/2023 01:59 PM TSH 1.711 08/01/2021 07:14 PM LDL 123 01/31/2024 09:53 AM ALT 22 12/30/2023 10:25 AM HGBA1C 5.8 (H) 05/25/2023 10:42 AM HGBA1C 5.6 01/09/2019 10:07 AM documented in this encounter Plan of Treatment Upcoming Encounters Date Type Department Care Team (Latest Contact Info) Description 03/03/202 5 1:00 PM EST Telemedicine Psychiatry [place] [address] [place] [address] Renetta Cox MD [address] [place], [place] [address] 5 1:00 PM EDT Laboratory Laboratory, [facility] [address] [place] [phone] [facility] [address] [place] [address] 5 3:00 PM EDT Office Visit Hematology/Onco logy [facility] [address] [place] [phone] Trinh Donahue MD [address] [place] [address] 5 11:15 AM EDT Hospital Encounter [facility]O [facility], Endoscopy Room [facility] [address] [place] [phone] Selvin Brower MD [address] [place] [address] 5 11:15 AM EDT - 5 11:45 AM EDT Surgery ENDO [facility], Endoscopy Room [facility] [address] [place] [phone] Selvin Brower MD [address] [place] [address] ESOPHAGOGASTRODUODENOSCOPY (EGD), FLEXIBLE, TRANSORAL, DIAGNOSTIC 5 2:30 PM EDT Office Visit Cardiology, [facility] [address] [place] [address] Crystal Hanna CRNP [address] [place] [address] 11:00 AM EDT Office Visit Dermatology [employer] 200 [facility] [place] [address] Trinh Edwards PA-C 200 [facility] [place] [address] Scheduled Procedures Name Priority Associated Diagnoses Date/Ti me ESOPHAGOGASTRODUODENOSCOPY ( EGD), FLEXIBLE, TRANSORAL, DIAGNOSTIC Esophageal dysphagia 08/08/2024 11:15 AM EDT Health Maintenance Due Date Last Done Comments Rice's Esophagus Surveilance 1938 Albumin/Creatinine Ratio 1956 Zoster Vaccines (1 of 2) 1988 Adult Wellness Visit 2004 Depression Monitoring 06/24/2023 06/23/2022 CKD PHOS USE SMARTSET 12832 05/24/2024 05/25/2023 HbA1c 05/24/2024 05/25/2023, 01/09/2019 COVID-19 Vaccine ( season) 2024 12/15/2023, 02/09/2023, 06/23/2021, Additional history exists CKD HGB USE SMARTSET 33568 12/29/202412/29, 12/30/2023, 06/24/2023, Additional history exists DTap/Tdap [...] Visit Diagnoses Diagnosis Coronary artery disease involving diomede coronary artery of diomede heart without angina pectoris- Primary Esophageal dysphagia Dysphagia, pharyngoesophageal phase documented in this encounter Care Teams Supervisor Production Department Relationship Specialty Start Date End Date Melissa Bean MD [address] [place] [place] [address] PCP - General Internal Medicine 03/25/22 documented as of this encounter
--- OUTSIDE RECORDS SUMMARY | 2024-07-27 16:13 | External Medical Summary | Summary of Care ---
Author Name Unknown Organization [facility] Address [address] [place] [address] Phone [phone] Care Team Providers Care Under Cutter Name Role Phone Melissa Bean MD Primary Care Provider Reason for Visit * Reason Onset Date Comments Procedure 02/21/2024 Encounter Details Date Type Department Care Team (Late st Contact Info) Description 02/21/2024 Telephone [facility]astroenterology, [facility] [address] [facility], Scheduling [address] [place] [address] Procedure Allergies Active Allergy Reactions Criticality Noted Date Comments Codeine 03/25/2022 Egg-Derived Products 03/25/2022 But no reaction to the flu vaccine. Aversion, not allergy Penicillins 03/25/2022 documented as of this encounter (statuses as of 02/23/2024) Medications Acetaminophen 325 MG Oral Tablet (Tylenol) [...] as of this encounter (statuses as of 02/23/2024) Active Problems Problem Noted Date Diagnosed Date [...] deficiency 03/25/2022 Coronary artery disease invo lving [place] coronary artery of [place] heart without angina pectoris 03/25/2022 Rice's esophagus [...] as of this encounter (statuses as of 02/23/2024) Resolved Problems Problem Noted Date Diagnosed Date Resolved Date Prepatellar bursitis 09/09/2016 024 Semimembranosus tendinitis 08/04/2016 0 05/25/2023 documented as of this encounter (statuses as of 02/23/2024) Immunizations Name Administration Dates Next Due COVID-19 mRNA, LNP-s, No Pre serve, 2-Dose Series ([employer]) 06/23/2021,12/10/2020,05/09/2020,04/18 Hepatitis B, 0-19 yrs 03/06/2007,10/05/2006,07/14 Pneumococcal [...] 08/22/2023 Does the household have a re lar [...] encounter Miscellaneous Notes * Telephone Encounter - Ernesto German OSA - 02/21/2024 4:57 PM EST Pt daughter, Luciana, called in to cancel fathers procedure for tomorrow 02/22/24. He is currently under the weather and too sick to proceed with this procedure for tomorrow. She tried to call a few times earlier but the system was giving her issues with getting her to where to needed to get to she stated. Could you please reach out to the pts daughter to reschedule the procedure? Thank you documented in this encounter Plan of Treatment Upcoming Encounters Date Type Department Care Team (Latest Contact Info) Description 4 2:00 PM EST [facility] [address] [place] [address] [facility] [address] [place] [address] 5 11:30 AM EST Office Visit Gastroenterolog y, [facility] 132 [facility] [place] [address] Vladimir Dominguez CRNP 132 [facility] [place] [address] 5 3:30 PM EST Telemedicine Psychiatry [place] [address] [place] [address] Renetta Cox MD [address] [place] [address] 5 2:00 PM EST Office Visit Cardiology, [facility] 132 [facility] [place] [address] Crystal Hanna CRNP [address] [place] [address] [place] [phone] 5 1:00 PM EDT Laboratory Laboratory, [facility] 132 [facility] [place] [phone] [facility], [facility] [address] [facility] [place] [address] 5 3:00 PM EDT Office Visit Hematology/Onco logy [facility] [place] [address] [place] [address] Trinh Donahue MD [address] [place] [address] 5 11:15 AM EDT Hospital Encounter [facility]O [facility], Endoscopy Room [facility] [address] [place] [phone] Selvin Brower MD [address] [place] [address] 5 11:15 AM EDT - 5 11:45 AM EDT Surgery ENDO [facility], Endoscopy Room [facility] [address] [place] [address] Selvin Brower MD [address] [place] [address] ESOPHAGOGASTRODUODENOSCOPY (EGD), FLEXIBLE, TRANSORAL, DIAGNOSTIC 5 11:00 AM EDT Office Visit Dermatology [facility] [place] [address] [place] [address] Trinh Edwards PA-C 200 [place] [address] Scheduled Procedures Name Priority Associated Diagnoses Date/Ti [...] Additional history exists CKD PHOS USE SMARTSET 59456 05/24/2024 05/25/2023 HbA1c 05/24/2024 05/25/2023, 01/09/2019 CKD HGB USE SMARTSET 96344 12/29/202412/29, 12/30/2023, 06/24/2023, Additional history exists DTap/Tdap [...] filedocumented as of this encounter Care Teams Under Cutter Relationship Specialty Start Date End Date Melissa Bean MD [facility] [place] [address] PCP - General Internal Medicine 03/25/22 documented as of this encounter
--- OUTSIDE RECORDS SUMMARY | 2024-07-27 16:14 | External Medical Summary ---
Author Name Unknown Address Unknown Organization [id number]:[facility] [place] [address] Laboratory Report Ordering Provider Test Date Status XOCHITL LIM 01/31/2024 09:53:23 Final Observation Date Value Abnormality Reference (Units ) Status Triglyceride 01/31/2024 09:53:23 205 Above high normal <=174 (mg/dL) Final Triglyceride Reference Range s (mg/dL):
<150 Acceptable
150-174 Borderline high
175-499 High
>=500 Very high Cholesterol 01/31/2024 09:53:23 203 Above high normal <200 (mg/dL) Final Total Cholesterol Reference Ranges (mg/dL):
<200 Desirable
200-239 Borderline high
>=240 High HDL 01/31/2024 09:53:23 39 Below low normal >39 (mg/dL) Final HDL Cholesterol Reference Ra nges (mg/dL):
>=60 High (Desirable)
<50 Low (Undesirable) For Females
<40 Low (Undesirable) For Males NON-HDL CHOLESTEROL 01/31/2024 09:53:23 164 Above high normal <=159 (mg/dL) Final Non-HDL Cholesterol Referenc e Range (mg/dL):
<100 Target level for high risk ASCVD patient
<130 Optimal for general population
130-159 Near optimal for general population
160-189 Borderline High
190-219 High
>=220 Very High LDL, (calculated) 01/31/2024 09:53:23 123 <= 129 (mg/dL) Final LDL Cholesterol Reference Ra nges (mg/dL):
<70 Target level for high risk ASCVD patient
<100 Optimal for general population
100-129 Near optimal for general population
130-159 Borderline high
160-189 High
>=190 Very high Performing Location [facility] [address] [facility] [address]
--- OUTSIDE RECORDS SUMMARY | 2024-07-27 16:14 | External Medical Summary | Summary of Care ---
Author Name Unknown Organization [facility] Address [address] [facility] [address] Phone [phone] Care Team Providers Care Cooker Casing Name Role Phone Melissa Bean MD Primary Care Provider Reason for Visit * Reason Onset Date Comments Medication Refill 02/01/2024 Encounter Details Date Type Department Care Team (Late st Contact Info) Description 02/01/2024 Refill [facility], Bj Hernandez [address] [place] [address] [place] [address] Tien Langford, [facility] [address] [place] [address] Coronary artery disease involving grayling coronary artery of grayling heart without angina pectoris*; Prediabetes; Encounter for long-term (current) use of medications Allergies Active Allergy Reactions Criticality Noted Date Comments Codeine 03/25/2022 Egg-Derived Products 03/25/2022 But no reaction to the flu vaccine. Aversion, not allergy Penicillins 03/25/2022 documented as of this encounter (statuses as of 02/02/2024) Medications Acetaminophen 325 MG Oral Tablet (Tylenol) [...] Capsule 1 4 02/01/20 24 Discontinu ed(Refill) Atorvastatin Calcium 80 MG Oral Tablet (Lipitor) Take 1 Tablet by mouth in the morning. 90 Tablet 1 4 02/02/20 24 Discontinu ed(Medicat ion/Dose Changed) documented as of this encounter (statuses as of 02/02/2024) Active Problems Problem Noted Date Diagnosed Date [...] deficiency 03/25/2022 Coronary artery disease invo lving grayling coronary artery of grayling heart without angina pectoris 03/25/2022 Rice's esophagus [...] as of this encounter (statuses as of 02/02/2024) Resolved Problems Problem Noted Date Diagnosed Date Resolved Date Prepatellar bursitis 09/09/2016 024 Semimembranosus tendinitis 08/04/2016 0 05/25/2023 documented as of this encounter (statuses as of 02/02/2024) Immunizations Name Administration Dates Next Due COVID-19 mRNA, LNP-s, No Pre serve, 2-Dose Series (Metamarkets) 06/23/2021,12/10/2020,05/09/2020,04/18 Hepatitis B, 0-19 yrs 03/06/2007,10/05/2006,07/14 Pneumococcal [...] Notes * Telephone Encounter - Tien Langford [facility] - 02/01/2024 11:26 AM EST I spoke with pt's daughter Luciana. She said pt was not taking the atorvastatin 40mg for about 2 weeks while he was waiting for a refill. He has started the atorvastatin 40mg again and was taking it for about a week prior to the lipid panel done yesterday which was elevated. Since pt missed 2 weeks prior to lab I advised to continue the 40mg for now and repeat lipid panel in 1-2 months. Please letme know if you agree or should patient increase dose now. Thanks, Tien Langford, Pharm.D. Clinical Pharmacist [facility] ([facility]) 02/01/2024, 11:28 AM [phone] * Telephone Encounter - Eddie Hanna CRNP - 02/01/2024 9:38 AM ESTSigned Prescriptions: Disp Refills Atorvastatin Calcium 80 MG Oral Tablet (Li*90 Tab*1 Sig: Take 1 Tablet by mouth in the morning. Authorizing Provider: EDDIE HANNA * Telephone Encounter - Eddie Hanna CRNP - 02/01/2024 9:38 AM EST Agree. Rx signed * Telephone Encounter - Tien Langford RPh - 02/01/2024 9:27 AM EST Pt had lipid panel completed. LDL, trigs, and cholesterol remain elevated. If patient has been compliant with atorvastatin, would recommend increasing dose to 80mg daily. Per chart review, I also sawprevious recommendations from Dr. Cohn to increase atorvastatin but it looks like it was never done.Pended new dose to provider. I agreeable please sign rx and I can communicate to pt's daughter regarding change and repeat labs. Thanks, Tien Langford, Pharm.D. Clinical Pharmacist [facility] ([facility]) 02/01/2024, 9:31 AM [phone] documented in this encounter Plan of Treatment Upcoming Encounters Date Type Department Care Team (Latest Contact Info) Description 4 8:30 AM EST Office Visit Cardiology, [facility] [address] [place] [address] Eddie Hanna CRNP [address] [place] [address] [place] [address] 4 10:45 AM EST Hospital Encounter ENDO O[facility], Endoscopy Room [facility] [address] [place] [phone] Selvin Brower MD [address] [place] [address] 4 10:45 AM EST - 4 11:15 AM EST Surgery ENDO [facility], Endoscopy Room [facility] [address] [place] [phone] Selvin Brower MD [address] [place] [place] [place] [address] ESOPHAGOGASTRODUODENOSCOPY (EGD), FLEXIBLE, TRANSORAL, DIAGNOSTIC 4 2:00 PM EST PulmDiagnostic Sleep Lab [facility] 132 [place] [address] Rodriguez Sleep Med Home Study [facility] 132 [place] [address] 5 11:30 AM EST Office Visit Gastroenterolog y, [facility] 132 [place] [address] Vladimir Dominguez CRNP 132 [place] [address] 5 3:30 PM EST Telemedicine Psychiatry Kalani Cadena [address] [place] [address] Renetta Cox MD [address] [place] [address] 5 1:00 PM EDT Laboratory Laboratory, [facility] [address] [place] [address] Hema Frias [facility] [address] [place] [address] 5 3:00 PM EDT Office Visit Hematology/Onco logy [facility] [address] [place] [phone] Trinh Donahue MD [address] [place] [address] 5 11:00 AM EDT Office Visit Dermatology [facility] [address] [place] [address] Trinh Edwards PA-C 200 [place] [address] Scheduled Orders Name Type Priority Associated Diagnoses Orde r Schedule LIPID PANEL WITH DIRECT LDL IF TG IS HIGH Lab Routine Coronary artery disease involving grayling coronary artery of grayling heart without angina pectoris Prediabetes Encounter for long-term (current) use of medications Expected: 02/01/2024 (Approximate), Expires: 01/31/2025 Scheduled Procedures Name Priority Associated Diagnoses Date/Ti [...] Additional history exists CKD PHOS USE SMARTSET 14266 05/24/2024 05/25/2023 HbA1c 05/24/2024 05/25/2023, 01/09/2019 CKD HGB USE SMARTSET 96685 12/29/202412/29, 12/30/2023, 06/24/2023, Additional history exists DTap/Tdap [...] Visit Diagnoses Diagnosis Coronary artery disease involving grayling coronary artery of grayling heart without angina pectoris- Primary Prediabetes Other abnormal glucose Encounter for long-term (current) use of medications Encounter for long-term (current) use of other medications Esophageal dysphagia Dysphagia, pharyngoesophageal phase documented in this encounter Care Teams Cooker Casing Relationship Specialty Start Date End Date Melissa Bean MD [address] [place] [place] [address] PCP - General Internal Medicine 03/25/22 documented as of this encounter
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
--- OUTSIDE RECORDS SUMMARY | 2024-07-27 16:14 | External Medical Summary | Summary of Care ---
Author Name Unknown Organization [facility] Address [address] [place] [address] Phone [phone] Care Team Providers Care Biophysics Scientist Name Role Phone Melissa Bean MD Primary Care Provider Reason for Visit * Reason Comments Outpatient Testing Encounter Details Date Type Department Care Team (Late st Contact Info) Description 01/31/2024 9:50 AM EST Laboratory Laboratory [facility] [address] [place] [address] [facility] [address] [place] [address] Coronary artery disease involving modoc coronary artery of modoc heart without angina pectoris Allergies Active Allergy Reactions Criticality Noted Date Comments Codeine 03/25/2022 Egg-Derived Products 03/25/2022 But no reaction to the flu vaccine. Aversion, not allergy Penicillins 03/25/2022 documented as of this encounter (statuses as of 01/31/2024) Medications Acetaminophen 325 MG Oral Tablet (Tylenol) [...] every morning. 90 Capsule 1 4 Active Atorvastatin Calcium 40 MG Oral Tablet (Lipitor) Take 1 Tablet by mouth in the morning. 100 Tablet 4 Active documented as of this encounter (statuses as of 01/31/2024) Active Problems Problem Noted Date Diagnosed Date [...] as of this encounter (statuses as of 01/31/2024) Resolved Problems Problem Noted Date Diagnosed Date Resolved Date Prepatellar bursitis 09/09/2016 024 Semimembranosus tendinitis 08/04/2016 0 05/25/2023 documented as of this encounter (statuses as of 01/31/2024) Immunizations Name Administration Dates Next Due COVID-19 [...] Care Team (Latest Contact Info) Description 4 1:30 PM EST Telemedicine Psychiatry Kalani Cadena [address] [place], [place] [address] Renetta Cox MD [address] [place], [place] [address] 4 8:30 AM EST Office Visit Cardiology, [facility] [address] [place] [address] Crystal Hanna CRNP [address] [facility] [place] [address] 4 10:45 AM EST Hospital Encounter ENDO OSSC, Endoscopy Room [facility] [address] [place] [phone] Selvin Brower MD [address] [place] [address] 4 10:45 AM EST - 4 11:15 AM EST Surgery ENDO O[facility], Endoscopy Room [facility] [address] [place] [phone] Selvin Brower MD [address] [place] [address] ESOPHAGOGASTRODUODENOSCOPY (EGD), FLEXIBLE, TRANSORAL, DIAGNOSTIC 4 2:00 PM EST PulmDiagnostic Sleep Lab [facility] [address] [place] [address] [facility], Sleep Med Home Study [facility] [address] [place] [address] 5 11:30 AM EST Office Visit Gastroenterolog y, [facility] [address] [place] [address] Vladimir Dominguez CRNP [address] [place] [address] 5 1:00 PM EDT Laboratory Laboratory, [facility] 132 [facility] [place] [phone] Hema Frias 132 [facility] [place] [address] 5 3:00 PM EDT Office Visit Hematology/Onco logy [facility] [address] [place] [address] Trinh Donahue MD [address] [place] [address] 5 11:00 AM EDT Office Visit Dermatology [facility] [address] [place] [address] Trinh Edwards PA-C [address] [place] [address] Pending Results Name Type Priority Associated Diagnoses Date /Time LIPID PANEL WITH DIRECT LDL IF TG IS HIGH Lab Routine Coronary artery disease involving modoc coronary artery of modoc heart without angina pectoris 01/31/2024 9:53 AM EST Scheduled Procedures Name Priority Associated Diagnoses Date/Ti nc ESOPHAGOGASTRODUODENOSCOPY ( EGD), FLEXIBLE, TRANSORAL, DIAGNOSTIC Esophageal [...] Additional history exists CKD PHOS USE SMARTSET 80683 05/24/2024 05/25/2023 HbA1c 05/24/2024 05/25/2023, 01/09/2019 CKD HGB USE SMARTSET 29587 12/29/202412/29, 12/30/2023, 06/24/2023, Additional history exists DTap/Tdap [...] artery of modoc heart without angina pectoris Esophageal dysphagia Dysphagia, pharyngoesophageal phase documented in this encounter Care Teams Biophysics Scientist Relationship Specialty Start Date End Date Melissa Bean MD [address] [facility] [place] [address] PCP - General Internal Medicine 03/25/22 documented as of this encounter
[2024-07-27] MEDS: ADVANCED PROBIOTIC 625 MG CAPSULE PO SCH (17:14)
[2024-07-27] MEDS: GABAPENTIN 100 MG CAP PO SCH (21:31)
[2024-07-28 07:16] LABS: Basophils # (auto) 0.09 K/uL (0.00-0.20); Basophils % (auto) 0.9 %; Eosinophils # (auto) 0.36 K/uL (0.00-0.50); Eosinophils % (auto) 3.6 %; Hematocrit (blood only) 36.9 % (42.0-52.0); Hemoglobin 12.2 g/dl (14.0-18.0); Immature Granulocytes # (auto) 0.03 K/uL (0.01-0.20); Immature Granulocytes % (auto) 0.3 %; Lymphocytes # (auto) 1.36 K/uL (1.20-3.40); Lymphocytes % (auto) 13.5 %; Mean Corpuscular Hemoglobin 31.4 pg (25.0-34.0); Mean Corpuscular Hgb Conc 33.1 g/dL (32.0-36.0); Mean Corpuscular Volume 95.1 fL (80.0-100.0); Monocytes # (auto) 1.98 K/uL (0.11-0.59); Monocytes % (auto) 19.6 %; Neutrophils # (auto) 6.29 K/uL (1.40-6.50); Neutrophils % (auto) 62.1 %; Platelet Count 132 K/uL (130-400); RDW Coefficient of Variation 13.2 % (11.5-14.5); RDW Standard Deviation 45.8 fL (36.4-46.3); Red Blood Count 3.88 M/uL (4.70-6.10); White Blood Count 10.11 K/ul (4.8-10.8)
[2024-07-28 07:35] LABS: BUN Creatinine Ratio 14.9 (10-20); Calcium 9.3 mg/dl (8.6-10.3); Creatinine Clr Calc Pharmacy 28.4 ml/min; Magnesium 1.8 mg/dl (1.7-2.4); Phosphorus 3.7 mg/dl (2.5-4.9); Potassium 4.5 mmol/L (3.5-5.1)
--- NOTE | 2024-07-28 11:44 | Discharge Summary ---
Discharge Summary Date of Service July 28, 2024 Principal Dx & Hospital Course #1 = Principal Diagnosis (1) Aspiration pneumonia: Plan Pt is an 83yoM with PMhx significant for CAD, complete heart block status post PPM, valvular heart disease (mild AR/MR/TR, TTE 2023), PVD, NSVT, PVCs, hypertension, hyperlipidemia, follicular lymphoma status postchemotherapy, GERD status post surgery, esophageal dysphagia as per records, prediabetes, CRI (baseline creatinine 2), chronic anemia (baseline hemoglobin 13), skin cancer status post surgery, dementia, mood disorder who presents with concern for cough and SOB. Aspiration pneumonia History esophageal dysphagia as per records No sepsis Chest XRAY noting "Combination of left mid-lower zone consolidation and pleural effusion, showing improvement" Leukocytosis improved to normal on discharge Clindamycin, discharged with the same to complete 10 days of treatment with probiotic to continue at least 1 week after rx completion. Nebs RTC given prominent wheezing Aspiration precautions, COMPUTATIONAL CHEMIST eval Pt's daughter indicated that he has a scheduled EGD end of July for further evaluation- advised to keep appt Speech therapy recommending outpatient video swallow. Other Chronic Medical Problems: hx CAD/PVD complete heart block status post PPM valvular heart disease (mild AR/MR/TR, TTE 2023), PVD hypertension, stable hyperlipidemia, on statin Rx follicular lymphoma status postchemotherapy, in remission prediabetes, hemoglobin A1c of 5.8 from last year CKD, creatinine at baseline chronic anemia, hemoglobin at baseline Cheek melanoma status post surgery dementia, patient mentating well Notes For Next Care Provider As above Medication Changes From Visit Clindamycin 300mg TID to complete 10 days of rx with probiotic to continue at least 1 week after rx completion Admission HPI Per Admitting Provider History obtained from patient, family, and records. Limited history from patient secondary to dementia. Medical history significant for CAD, complete heart block status post PPM, valvular heart disease (mild AR/MR/TR, TTE 2023), PVD, NSVT, PVCs, hypertension, hyperlipidemia, follicular lymphoma status postchemotherapy, GERD status post ford rgery, esophageal dysphagia as per records, prediabetes, CRI (baseline creatinine 2), chronic anemia (baseline hemoglobin 13), skin cancer status post surgery, dementia, mood disorder. Last confinement 2022 for altered mental status. 1 week history of worsening junky cough symptoms associated with SOB. Not sure about sick contacts. Denies chest pain or fluid retention. Coughing with meals/water intake as per family. O2 sats noted to be 80s at home as per family. Patient brought to ER for evaluation. Doxycycline administered at the ER. 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 No acute distress HEENT: NC/AT CV: RRR Resp: Breath sounds with slight wheeze bilaterally, no increased effort of breathing Abdomen: Soft, nontender, nondistended Extremities: No edema in lower extremities bilaterally. Updated Medication List Medication Instructions Recorded Confirmed Type quetiapine 50 mg tablet (Seroquel) 50 mg PO HS #30 tabs 07/06/22 07/26/24 Rx cholecalciferol (vitamin D3) 25 0 mcg PO DAILY 07/26/24 07/26/24 History mcg (1,000 unit) capsule (Vitamin D3) fluoxetine 20 mg capsule (Prozac) 20 mg PO DAILY 07/26/24 07/26/24 History fluoxetine 40 mg capsule (Prozac) 40 mg PO DAILY 07/26/24 07/26/24 History gabapentin 100 mg capsule 100 mg PO HS 07/26/24 07/26/24 History metoprolol succinate 25 mg 25 mg PO DAILY 07/26/24 07/26/24 History tablet,extended release 24 hr multivitamin 1 tab PO DAILY 07/26/24 07/26/24 History L.acidop,casei,lactis,rham-B.lact,dereje 1 cap PO DAILY #30 caps 07/28/24 Rx 625 mg (10 billion cell) capsule (Advanced Probiotic) clindamycin HCl 300 mg capsule 300 mg PO Q8H #27 caps 07/28/24 Rx Hospital Stay Data Consultations 07/26/24 20:54 ED Decision to Admit Stat Diagnostic Imagining Performed Chest X-Ray 07/26/24 17:40 EXAM: XR chest 1V not portable CLINICAL HISTORY: URI TECHNIQUE: An X-ray image of the chest is obtained in AP projection. COMPARISON: CXR dated 07/05/2022. FINDINGS: Pulmonary Parenchyma: Opacity in the mid-lower zone of left lung, obscuring cardiac and diaphragmatic border. Likely combination of consolidation and pleural effusion. Improved compared with priors. Increased bronchovascular markings in lungs, related to cardiac congestion. Mildly improved. No pulmonary nodules are identified. No pleural thickening. Heart and Mediastinum: Cardiomegaly. Dual chamber pacemaker with leads in situ. Bony Thorax: Bony thorax appears intact without fractures or deformities. Soft Tissues: Soft tissues overlying the chest wall are unremarkable. IMPRESSION: 1. Combination of left mid-lower zone consolidation and pleural effusion, showing improvement. 2. Cardiac congestion related increased bronchovascular markings in lungs. Mildly improved as well. 3. Cardiomegaly. Electronically signed by Donal Umanzor 07-26-2024 7:45 PM Discharge Instructions Given to Patient (Per Discharging Provider) Mr. Schaeffer, You were treated for aspiration pneumonia. You were seen by the speech path ologist who recommends a video swallow exam as an outpatient. You indicated that you have an upcoming EGD scheduled for the end of July. We encourage you to keep that appointment. We are discharging you home with an additional 9 days of the antibiotic clindamycin. Please continue to take it with the probiotic prescribed and continue with the probiotic for at least 1 week after completion of the ant ibiotic. Please keep close follow up with your primary care provider after discharge. Please do not hesitate to come back to the emergency room if your symptoms worsen or return. It was a pleasure taking care of you while you were here. Total Time Total Time Spent Total Time Spent (In Minutes): 60
[2024-07-28 12:09] VITALS: BP 113/56; TEMP 97.7
[2024-07-28 14:15] VITALS: PULSE 88; RESP 18; O2SAT 98
== END 2024-07-28 15:06 | disposition home or self-care (01) ==
LOC: ED 17:02 → 2N 17:02